=== PATIENT | female | born 1995 | race African-American/Black ===

== ENCOUNTER 2022-07-28 11:39 | Emergency (ER) | payer SELFPAY ==
--- OUTSIDE RECORDS SUMMARY | 2022-07-28 11:47 | XMS REPORT | Continuity of Care Document ---
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 13:00:00 13:55:50 [facility] 2022-04-30 2022-04-30 Letter [facility] [id number] Univers 00:00:00 00:00:00 (Out) [facility] 350.1.13.10 ity of CANCER 4.2.7.2.686 [facility] - [id number] [facility] [address] 2021-08-13 2021-08-13 Outpatient COVID-PFIZE ANAIS CAMPOS [id number] Anais 14:40:00 14:40:00 R Vladimir [facility] [facility] 2021-07-23 2021-07-23 Office Ruddy RAM 1.2.840.114 [id number] Anais 11:15:00 11:30:00 Visit Leeanne ludwig 350.1.13.13 Lisa Yoo 1.2.7.2.686 [id number] 2021-07-10 2021-07-10 Outpatient RUDDY ANAIS CAMPOS 105 [id number] Anais 11:15:00 11:15:00 END, LEEANNE Alcantar ybsantos 2021-06-26 2021-06-[address] ANAIS CAMPOS [id number] Anais 15:10:00 15:10:00 Seybol d 2021-06-26 2021-06-26 Office RUDDY CLEAR 1.2.840.114 [id number] Anais 14:30:00 14:30:00 Visit END, LEEANNE JOLLY 350.1.13.13 Seybold 1.2.7.2.686 [id number] 2021-06-26 2021-06-26 Outpatient RUDDY ANAIS CAMPOS [id number] Anais 00:00:00 00:00:00 END, LEEANNE Alcantar ybsantos 2021-06-26 2021-06-26 [facility] ANAIS C[facility] [id number] Anais 00:00:00 00:00:00 MD SAL Seybol d 2021-06-18 2021-06-18 Office Ruddy CLEAR 1.2.840.114 [id number] Anais 09:00:00 09:15:00 Visit end, Leeanne JOLLY 350.1.13.13 Seybold 1.2.7.2.686 [id number] 2021-05-30 2021-06-04 Inpatient EM RICH RomanCL OBPP [id number] [facility] 03:21:00 10:58:00 Leeanne [id number] [facility] 2021-05-30 2021-06-04 Inpatient RICH GrossCL OBPP [id number] [facility] 03:21:00 10:58:00 Leeanne 81 [facility] 2021-06-04 2021-06-04 Outpatient RUDDY ANAIS CAMPOS 102 [id number] Anais 09:15:00 09:15:00 END, LEEANNE Alcantar ybsantos 2021-06-02 2021-06-02 Outpatient PROVIDER, ANAIS CAMPOS [id number] Anais 00:00:00 00:00:00 AFFILIATE Seyb old 2021-06-02 2021-06-02 Outpatient KENY-SMI ANAIS CAMPOS [id number] Anais 00:00:00 00:00:00 TH, SOLANGE ybol d 2021-05-30 2021-05-30 Outpatient KNOW, HCABM OPLA [id number] [facility] 10:56:00 10:56:00 DOES_NOT 85 [facility] 2021-05-28 2021-05-28 Routine OB [a]list games CLEAR 1.2.840.114 [id number] Anais 11:14:31 11:29:31 end, Leeanne JOLLY 350.1.13.13 Seybold M 1.2.7.2.686 [id number] 2021-05-21 2021-05-21 Routine OB [a]list games CLEAR 1.2.840.114 [id number] Anais 11:08:41 11:23:41 end, Leeanne JOLLY 350.1.13.13 Seybold M 1.2.7.2.686 [id number] 2021-05-14 2021-05-14 Outpatient COVID-MODER ANAIS CAMPOS [id number] Anais 09:50:00 09:50:00 NA VACC-2, Sey bold CLEAR 2021-05-14 2021-05-14 Routine OB [a]list games CLEAR 1.2.840.114 [id number] Anais 08:31:39 08:46:39 end, Leeanne JOLLY 350.1.13.13 Seybold M 1.2.7.2.686 [id number] 2021-05-07 2021-05-07 Outpatient LWP77-ALQ ANAIS CAMPOS [id number] Anais 10:55:00 10:55:00 Seybol d 2021-05-07 2021-05-07 Outpatient COVID-PFIZE ANAIS CAMPOS [id number] Anais 10:30:00 10:30:00 R VACC-2, Seyb old CLEAR 2021-05-07 2021-05-07 Routine OB [a]list games CLEAR 1.2.840.114 [id number] Anais 09:09:11 09:24:11 end, Leeanne JOLLY 350.1.13.13 Seybold M 1.2.7.2.686 [id number] 2021-05-05 2021-05-05 Outpatient COVID-PFIZE ANAIS CAMPOS 103 [id number] Anais 10:30:00 10:30:00 R VACC-1, Seyb old CLEAR 2021-04-23 2021-04-23 Outpatient COVID-PFIZE ANAIS CAMPOS 102 [id number] Anais 10:50:00 10:50:00 R VACC-1, Seyb old CLEAR 2021-04-23 2021-04-23 Outpatient COVID-PFIZE ANAIS CAMPOS 102 [id number] Anais 10:10:00 10:10:00 R VACC-1, Seyb old CLEAR 2021-04-23 2021-04-23 Outpatient LAB53 ANAIS CAMPOS [id number] Anais 09:40:00 09:40:00 Seybol d 2021-04-23 2021-04-23 Routine OB [facility] CLEAR 1.2.840.114 [id number] Anais 08:38:31 08:53:31 end, Leeanne JOLLY 350.1.13.13 Seybold M 1.2.7.2.686 [id number] 2021-04-18 2021-04-18 Emergency EM Christelle, HCACL MARINA [id number] [facility] 18:59:00 20:30:00 [facility] 2021-04-18 2021-04-18 Outpatient [facility] ANAIS CAMPOS 102 [id number] Anais 00:00:00 00:00:00 END, LEEANNE Se ybold 2021-04-09 2021-04-09 Routine OB [facility] CLEAR 1.2.840.114 [id number] Anais 08:29:50 08:44:50 end, Leeanne JOLLY 350.1.13.13 Seybold M 1.2.7.2.686 [id number] 2021-03-26 2021-03-26 Routine OB [facility] CLEAR 1.2.840.114 [id number] Anais 08:46:10 09:01:10 end, Leeanne JOLLY 350.1.13.13 Seybold M 1.2.7.2.686 [id number] 2021-03-12 2021-03-12 Outpatient LAB53 ANAIS CAMPOS [id number] Anais 10:25:00 10:25:00 Seybol d 2021-03-12 2021-03-12 Outpatient [facility] ANAIS ANAIS 101 [id number] Anais 09:00:00 09:00:00 SOLANGE AVILA Seybol d 2021-03-12 2021-03-12 Outpatient [facility] ANAIS ANAIS 100 [id number] Anais 08:45:00 08:45:00 END, LEEANNE Se ybold 2021-03-07 2021-03-07 Outpatient ANAIS BARNESSEY [id number] Anais 07:30:00 07:30:00 Seybol d 2021-03-07 2021-03-07 Outpatient [facility] ANAIS ANAIS [id number] Anais 00:00:00 00:00:00 END, LEEANNE Se ybold 2021-02-27 2021-02-27 Outpatient ELIZABETHANAISONKurtis CAMOPS ANAIS 101 [id number] Anais 00:00:00 00:00:00 MD SAL Seybol d 2021-02-11 2021-02-11 Outpatient [facility] ANAIS ANAIS 100 [id number] Anais 14:45:00 14:45:00 END, LEEANNE Se ybold 2020-03-08 2020-03-08 Outpatient L[facility], [facility] [id number] [place] 00:00:00 00:00:00 SARAH 681 Method i 2020-03-07 2020-03-07 Outpatient [facility], [facility] [id number] [address] [place] 00:00:00 00:00:00 SARAH 704 Method i 2020-03-07 2020-03-07 Outpatient [facility], [facility] [id number] [address] [place] 00:00:00 00:00:00 SARAH 119 Method i 2020-02-25 2020-02-25 Emergency WINGKUN, [facility] [id number] [address] [place] 00:00:00 00:00:00 SAURABH 209 Nj thodi 2019-11-08 2019-11-08 Emergency MARCANTEL, [facility] [id number] [place] 00:00:00 00:00:00 DESMOND [address] 2019-09-27 2019-09-27 Emergency JONATHAN, [facility] [id number] [address] [place] 00:00:00 00:00:00 IMAN [address] Results Test Description Test Time Test Comments Results Result Comments Source PAP TEST, THINPREP, IMAGED 2022-04-29 22:23:11 Test Item Value Reference Range Interpretation Comme nts SOURCE: (test code = Cervical/Endocervical 8001) SLIDES: (test code = 1 8011) LMP: (test code = 04/16/2022 8021) SPECIMEN ADEQUACY: (NOTE) Ivanna graf for (test code = 76849) evaluati on. Endocervical cells/transform ation zone component prese nt. INTERPRETATION: NILM/NO EPITH. ABNORMALITY;SEE (test code = 42983) BELOW -------- NEGATIVE FOR INTRAEPITHE LIAL LESION OR MALIGNANCY ( NILM) -- BAGGAGE CHECKER: GERSON Waters(ASCP)IAC (test code = 8101) LOCATION: (test code (NOTE) Specime ns processed and = 26277) interpreted at [facility] [address] [place] [address], Phone: ( [phone], CLIA: [id number] CPT: (test code = (NOTE) 40792 UNLE SS OTHERWISE 8140) INDICATED, COMP UTER AIDED AND CYTOTECHNOL OGIST SCREENING PERFO RMED. The Pap test is a scree luis daniel test with an inheren t, but low probability of error. Your patient should be reminded to consult you immediately if she experien víctor any suspicious sign s or symptoms, regar dless of her Pap test result . An alternate repor t format containing imag es or consolidated pr ior Pap history is avai lable as applicable. CT/NG, TMA, [id number] 22:19:39 Test Item Value Reference Range Interpretation Comments GONORRHEA, TMA NEGATIVE NEGATIVE Assay method ology is (test code = nucleic acid am plification 15357) by transcriptio n mediated amplification ( TMA) utilizing the A ptima Combo 2 Assay. CHLAMYDIA, TMA NEGATIVE NEGATIVE Assay method ology is (test code = nucleic acid am plification 92339) by transcriptio n mediated amplification ( TMA) utilizing the A ptima Combo 2 Assay. VAGINAL PATHOGENS DNA [id number] 16:26:53 Test Item Value Reference Range Interpretation Comments ROHAN SPECIES (test NEGATIVE NEGATIVE code = ) G. VAGINALIS (test NEGATIVE NEGATIVE code = ) T. VAGINALIS (test NEGATIVE NEGATIVE UNLESS O THERWISE code = ) INDICATED, ALL TESTING PERFORMED [facility] [address] [place] [address] 4 LABORATORY DIRE CTOR: WHIT GANN M.D. CLIA NUMBER [id number] [facility] [place] [id number] HPV HIGH RISK WITH GENOTYPE, [id number] 14:46:15 Test Item Value Reference Range Interpretation Comments HPV HIGH RISK INTERP NEGATIVE NEGATIVE (test code = 07371) HPV 16 (test code = NEGATIVE 39992) HPV 18 (test code = NEGATIVE 17349) HPV, HR, OTHER NEGATIVE Testing meth odology is GENOTYPES (test code real-ti me PCR utilizing = 89182) hydrolysis prob es with the ELVPHD Korin 4800 system. The suhas t individually de tects genotypes 16 an d 18, as well as the oth er 12 high risk types (31,33,35,39,45 ,51,52,56 ,58,59,66,68). The expected result is negative. A neg ative result does not rule out the presence of HPV not included in the genotype set, a low leve l of infection or sp ecimen sampling error. UNLESS OTHERWISE INDIC ATED, ALL TESTING PERFORM [facility] [place]. [address] [place] [address] LABORATORY DIRE CTOR: WHIT GANN M.D. CLIA NUMBER [id number] [facility] [place] [id number] URINALYSIS NONAUTO W/O [id number] 15:29:00 Test Item Value Reference Range Interpretation Comments UD KETONES (test code Neg 5-160 = 956540) UD GLUCOSE (test code Neg 100-2000 = 712413) UD PROTEIN (test code Neg Trace - 2000 mg/dL = 718002) UD LEUKOCYTES (test Neg Trace - Large @ 2 code = 148301) min. UD NITRITE (test code Neg Neg. - Pos. @ 60 = 316290) sec. UD UROBILINOGEN (test 0.2 mg/dL 0.2-8 code = 822222) UD PH (test code = See_Comment [Automat ed message] 370083) The system test companyic h generated this result transmit renate reference range : 5.0 - 8.5 @ 60 sec. . The reference range was not used to interpret this result as normal/abnormal . UD BLOOD (test code = Neg Neg. - Large @ 60 232176) sec. UD SPECIFIC GRAVITY See_Comment [Automa renate message] (test code = 836130) The sys tem which generated this result transmit renate reference range : 1.000 - 1.030 @ 45 sec.. The refer ence range was not u sed to interpret th is result as normal/abnormal . UD BILIRUBIN (test Neg Neg. - Large @ 45 code = 021346) sec. Anais SeyboldURINALYSIS [id number] 15:18:00 Test Item Value Reference Range Interpretation Comments UA COLOR (test code = COLU) COLORLESS YEL/STRAW UA APPEARANCE (test code = CLEAR CLEAR APPU) UA GLUCOSE DIPSTICK (test NEGATIVE NEGATIVE code = DGLUU) UA BILIRUBIN DIPSTICK (test NEGATIVE NEGATIVE code = BILU) UA KETONE DIPSTICK (test NEGATIVE NEGATIVE code = KETU) UA SPECIFIC GRAVITY (test 1.003 1.005-1.030 L code = SGU) UA BLOOD DIPSTICK (test 2+ NEGATIVE A code = FIDEL) UA PH DIPSTICK (test code = 8.0 5.0-7.0 H JAYLON) UA PROTEIN DIPSTICK (test NEGATIVE NEGATIVE code = PROU) UA UROBILINIOGEN DIPSTICK 0.2 mg/dL 0.2-1.0 (test code = URO) UA NITRITE DIPSTICK (test NEGATIVE NEGATIVE code = ELINOR) UA LEUKOCYTE ESTERASE NEGATIVE NEGATIVE DIPSTICK (test code = LEUU) UA RBC (test code = RBCU) NONE SEEN RBC/HPF 0-3 UA WBC NO REFLEX (test code NONE SEEN WBC/HPF 0-3 = WBCUCL) UA BACTERIA (test code = NONE SEEN /HPF NONE SEEN BACU) UA SQUAMOUS CELLS (test 0-5 /HPF NONE SEEN code = SQU) COMPREHENSIVE METABOLIC [id number] 12:59:00 Test Item Value Reference Range Interpretation Comments SODIUM (test code = NA) 137 mEq/L 134-147 N POTASSIUM (test code = 3.6 mEq/L 3.4-5.0 N K) CHLORIDE (test code = 103 mEq/L 100-108 N CL) CARBON DIOXIDE (test 26 mEq/l 21-33 N code = CO2) ANION GAP (test code = 12 0-20 N GAP) GLUCOSE (test code = 99 mg/dL 70-110 N GLU) BLOOD UREA NITROGEN 9 mg/dL 7-18 N (test code = BUN) GLOMERULAR FILTRATION 147.4 110-120 H Units of measure = RATE (test code = GFR) ml/mi n/1.73 m2 CREATININE (test code = 0.6 mg/dL 0.6-1.3 N CREAT) TOTAL PROTEIN (test 7.2 g/dL 6.4-8.2 N code = PROT) ALBUMIN (test code = 3.10 g/dL 3.4-5.0 L ALB) CALCIUM (test code = 10.5 mg/dL 8.0-10.5 N CA) BILIRUBIN TOTAL (test 0.40 mg/dL 0.0-1.0 N code = BILT) SGOT/AST (test code = 22 IUnit/L 15-37 N AST) SGPT/ALT (test code = 18 IUnit/L 30-65 L ALT) ALKALINE PHOSPHATASE 129 IUnit/L 20-125 H TOTAL (test code = ALKP) URIC [id number] 12:59:00 Test Item Value Reference Range Interpretation Comments URIC ACID (test code = URIC) 4.3 mg/dL 2.6-7.2 N LACTIC DEHYDROGENASE(LDH)2021-06-03 12:59:00 Test Item Value Reference Range Interpretation Comments LACTIC DEHYDROGENASE(LDH) (test 195 IUnits/L 84-246 N code = LDH) CBC W/AUTO [id number] 12:24:00 Test Item Value Reference Range Interpretation Comments WHITE BLOOD CELL (test code = 8.0 x10 3/uL 4.5-11.0 N WBC) RED BLOOD CELL (test code = 4.01 x10 6/uL 3.54-5.02 N RBC) HEMOGLOBIN (test code = HGB) 11.2 g/dL 11.0-15.0 N HEMATOCRIT (test code = HCT) 33.7 % 33.0-45.0 N MEAN CELL VOLUME (test code = 84.0 fL 81.0-99.0 N MCV) MEAN CELL HGB (test code = MCH) 27.9 pg 27.0-33.0 N MEAN CELL HGB CONCETRATION 33.2 g/dL 33.0-37.0 N (test code = MCHC) RED CELL DISTRIBUTION WIDTH CV 14.3 % 11.5-14.5 N (test code = RDW) RED CELL DISTRIBUTION WIDTH SD 44.2 fL 37.0-54.0 N (test code = RDW-SD) PLATELET COUNT (test code = 284 x10 3/uL 150-400 N PLT) MEAN PLATELET VOLUME (test code 10.0 fL 7.0-9.0 H = MPV) NEUTROPHIL % (test code = NT%) 71.0 % 56.0-77.0 N IMMATURE GRANULOCYTE % (test 1.0 % 0.0-2.0 N code = IG%) LYMPHOCYTE % (test code = LY%) 17.9 % 14.0-32.0 N MONOCYTE % (test code = MO%) 8.0 % 4.8-9.0 N EOSINOPHIL % (test code = EO%) 1.7 % 0.3-3.7 N BASOPHIL % (test code = BA%) 0.4 % 0.0-2.0 N NUCLEATED RBC % (test code = 0.0 % 0-0 N NRBC%) NEUTROPHIL # (test code = NT#) 5.70 x10 3/uL 2.0-7.6 N IMMATURE GRANULOCYTE # (test 0.08 x10 3/uL 0.00-0.03 H code = IG#) LYMPHOCYTE # (test code = LY#) 1.44 x10 3/uL 1.0-3.8 N MONOCYTE # (test code = MO#) 0.64 x10 3/uL 0.1-0.8 N EOSINOPHIL # (test code = EO#) 0.14 x10 3/uL 0.0-0.2 N BASOPHIL # (test code = BA#) 0.03 x10 3/uL 0.0-0.2 N NUCLEATED RBC # (test code = 0.00 x10 3/uL 0.0-0.1 N NRBC#) MANUAL DIFF REQUIRED (test code NO = MDIFF) COMPREHENSIVE METABOLIC [id number] 08:18:00 Test Item Value Reference Range Interpretation Comments SODIUM (test code = NA) 137 mEq/L 134-147 N POTASSIUM (test code = 3.9 mEq/L 3.4-5.0 N K) CHLORIDE (test code = 106 mEq/L 100-108 N CL) CARBON DIOXIDE (test 24 mEq/l 21-33 N code = CO2) ANION GAP (test code = 11 0-20 N GAP) GLUCOSE (test code = 72 mg/dL 70-110 N GLU) BLOOD UREA NITROGEN < 5 mg/dL 7-18 L (test code = BUN) GLOMERULAR FILTRATION 123.4 110-120 H Units of measure = RATE (test code = GFR) ml/mi n/1.73 m2 CREATININE (test code = 0.7 mg/dL 0.6-1.3 N CREAT) TOTAL PROTEIN (test 5.8 g/dL 6.4-8.2 L code = PROT) ALBUMIN (test code = 2.70 g/dL 3.4-5.0 L ALB) CALCIUM (test code = 8.9 mg/dL 8.0-10.5 N CA) BILIRUBIN TOTAL (test 0.50 mg/dL 0.0-1.0 N code = BILT) SGOT/AST (test code = 31 IUnit/L 15-37 N AST) SGPT/ALT (test code = 17 IUnit/L 30-65 L ALT) ALKALINE PHOSPHATASE 137 IUnit/L 20-125 H TOTAL (test code = ALKP) CBC W/AUTO [id number] 06:45:00 Test Item Value Reference Range Interpretation Comments WHITE BLOOD CELL (test code = 12.0 x10 3/uL 4.5-11.0 H WBC) RED BLOOD CELL (test code = 3.72 x10 6/uL 3.54-5.02 N RBC) HEMOGLOBIN (test code = HGB) 10.3 g/dL 11.0-15.0 L HEMATOCRIT (test code = HCT) 31.8 % 33.0-45.0 L MEAN CELL VOLUME (test code = 85.5 fL 81.0-99.0 N MCV) MEAN CELL HGB (test code = 27.7 pg 27.0-33.0 N MCH) MEAN CELL HGB CONCETRATION 32.4 g/dL 33.0-37.0 L (test code = MCHC) RED CELL DISTRIBUTION WIDTH CV 14.7 % 11.5-14.5 H (test code = RDW) RED CELL DISTRIBUTION WIDTH SD 45.5 fL 37.0-54.0 N (test code = RDW-SD) PLATELET COUNT (test code = 192 x10 3/uL 150-400 N PLT) MEAN PLATELET VOLUME (test 11.5 fL 7.0-9.0 H code = MPV) NEUTROPHIL % (test code = NT%) 84.6 % 56.0-77.0 H IMMATURE GRANULOCYTE % (test 0.4 % 0.0-2.0 N code = IG%) LYMPHOCYTE % (test code = LY%) 6.7 % 14.0-32.0 L MONOCYTE % (test code = MO%) 8.1 % 4.8-9.0 N EOSINOPHIL % (test code = EO%) 0.0 % 0.3-3.7 L BASOPHIL % (test code = BA%) 0.2 % 0.0-2.0 N NUCLEATED RBC % (test code = 0.0 % 0-0 N NRBC%) NEUTROPHIL # (test code = NT#) 10.12 x10 3/uL 2.0-7.6 H IMMATURE GRANULOCYTE # (test 0.05 x10 3/uL 0.00-0.03 H code = IG#) LYMPHOCYTE # (test code = LY#) 0.80 x10 3/uL 1.0-3.8 L MONOCYTE # (test code = MO#) 0.97 x10 3/uL 0.1-0.8 H EOSINOPHIL # (test code = EO#) 0.00 x10 3/uL 0.0-0.2 N BASOPHIL # (test code = BA#) 0.02 x10 3/uL 0.0-0.2 N NUCLEATED RBC # (test code = 0.00 x10 3/uL 0.0-0.1 N NRBC#) MANUAL DIFF REQUIRED (test NO code = MDIFF) CORD ARTERIAL BLOOD [id number] 20:25:00 Test Item Value Reference Range Interpretation Comments CORD BLOOD PH (test code = PH/C) 7.16 7.18-7.38 LL CORD BLOOD PCO2 (test code = 81 mmHg 32-66 H PCO2/C) CORD BLOOD PO2 (test code = PO2/C) 5 mmHg 6-30 L CORD BLOOD HCO3 (test code = 29 mmol/L 17-27 H HCO3/C) BASE EXCESS CORD (test code = 0.6 mmol/L -8.0-0.0 H GIAN/C) CBG TEMPERATURE (test code = 98.4 F TEMPC) CORD VENOUS BLOOD [id number] 19:49:00 Test Item Value Reference Range Interpretation Comments CORD VENOUS PH (test code = PHCV) 7.27 7.25-7.45 N CORD VENOUS PCO2 (test code = 59 mmHg 27-49 H PCO2CV) CORD VENOUS PO2 (test code = 19 mmHg 17-41 N PO2CV) CORD VENOUS HCO3 (test code = 27.0 MMOL/L 12-28 N HCO3CV) CORD VENOUS BASE EXCESS (test 0.0 mmol/L -8.0-0.00 N code = BEXCV) CORD VENOUS 02 SAT (test code = 23 % O2SCV) CBG TEMPERATURE (test code = 98.4 F TEMPC) UR PROTEIN/CREATININE [id number] 13:43:00 Test Item Value Reference Range Interpretation Comments UR PROTEIN RANDOM 40 mg/dL No te: Change in (test code = UNITS of MEASUR EMENT. PROTU) The Refe rence Range and Metho d Performance specificationsh ave not been establishe d for this fluid. The test resultshould be correlated into the clinical contex t forinterpretati on. UR CREATININE 145.7 mg/dL The Reference Range and RANDOM (test code Method Per formance = CREATU) specificationsh ave not been establishe d for this fluid. The test resultshould be correlated into the clinical contex t forinterpretati on. PROTEIN/CREATININ 0.27 E RATIO (test code = P/CRATIO) AB HIV 1 10:54:00 Test Item Value Reference Range Interpretation Comments AB HIV 1 2 (test code = ARN54ZB) Nonreactive Nonreactive RAPID PLASMA [id number] 10:54:00 Test Item Value Reference Range Interpretation Comments RAPID PLASMA REAGIN (test code = NONREACTIVE NONREACTIVE RPR) AG HEPATITIS B [id number] 10:54:00 Test Item Value Reference Range Interpretation Comments AG HEPATITIS B SURFACE NON REACTIVE INDEX NonReactive (test code = HBSAG) COMPREHENSIVE METABOLIC [id number] 04:30:00 Test Item Value Reference Range Interpretation Comments SODIUM (test code = NA) 135 mEq/L 134-147 N POTASSIUM (test code = 3.9 mEq/L 3.4-5.0 N K) CHLORIDE (test code = 104 mEq/L 100-108 N CL) CARBON DIOXIDE (test 23 mEq/l 21-33 N code = CO2) ANION GAP (test code = 12 0-20 N GAP) GLUCOSE (test code = 88 mg/dL 70-110 N GLU) BLOOD UREA NITROGEN < 5 mg/dL 7-18 L (test code = BUN) GLOMERULAR FILTRATION 147.4 110-120 H Units of measure = RATE (test code = GFR) ml/mi n/1.73 m2 CREATININE (test code = 0.6 mg/dL 0.6-1.3 N CREAT) TOTAL PROTEIN (test 7.0 g/dL 6.4-8.2 N code = PROT) ALBUMIN (test code = 3.40 g/dL 3.4-5.0 N ALB) CALCIUM (test code = 9.2 mg/dL 8.0-10.5 N CA) BILIRUBIN TOTAL (test 0.40 mg/dL 0.0-1.0 N code = BILT) SGOT/AST (test code = 21 IUnit/L 15-37 N AST) SGPT/ALT (test code = 11 IUnit/L 30-65 L ALT) ALKALINE PHOSPHATASE 183 IUnit/L 20-125 H TOTAL (test code = ALKP) URIC [id number] 04:30:00 Test Item Value Reference Range Interpretation Comments URIC ACID (test code = URIC) 4.6 mg/dL 2.6-7.2 N LACTIC DEHYDROGENASE(LDH)2021-05-30 04:30:00 Test Item Value Reference Range Interpretation Comments LACTIC DEHYDROGENASE(LDH) (test 161 IUnits/L 84-246 N code = LDH) URINALYSIS [id number] 04:23:00 Test Item Value Reference Range Interpretation Comments UA COLOR (test code = COLU) YELLOW YEL/STRAW UA APPEARANCE (test code = CLEAR CLEAR APPU) UA GLUCOSE DIPSTICK (test code NEGATIVE NEGATIVE = DGLUU) UA BILIRUBIN DIPSTICK (test NEGATIVE NEGATIVE code = BILU) UA KETONE DIPSTICK (test code 1+ NEGATIVE A = KETU) UA SPECIFIC GRAVITY (test code 1.017 1.005-1.030 N = SGU) UA BLOOD DIPSTICK (test code = 1+ NEGATIVE A FIDEL) UA PH DIPSTICK (test code = 6.0 5.0-7.0 N JAYLON) UA PROTEIN DIPSTICK (test code 1+ NEGATIVE A = PROU) UA UROBILINIOGEN DIPSTICK 0.2 mg/dL 0.2-1.0 (test code = URO) UA NITRITE DIPSTICK (test code NEGATIVE NEGATIVE = ELINOR) UA LEUKOCYTE ESTERASE DIPSTICK NEGATIVE NEGATIVE (test code = LEUU) UA RBC (test code = RBCU) 4-10 RBC/HPF 0-3 UA WBC NO REFLEX (test code = 4-9 WBC/HPF 0-3 A WBCUCL) UA BACTERIA (test code = BACU) NONE SEEN /HPF NONE SEEN UA SQUAMOUS CELLS (test code = 0-5 /HPF NONE SEEN SQU) UA MUCUS (test code = MUCU) TRACE /LPF NONE SEEN COVID 19 Asymptomatic IH [id number] 04:18:00 Test Item Value Reference Range Interpretation Comments COVID 19 Asymptomatic Negative Negative A nega tive result is IH AG (test code = presumpti ve and should COVNONPUIAG) be confirmedwit h an FDA authorized mole cular assay, if neces liudmila forpatient thomas gement.A positive result does not rule out co-inf ections withother patho gens.This test detects joanna th viable (live) and non-viable,SARS -CoV, and SARS-CoV-2. Suhas t performance dep ends on theamount of vi ignacia (antigen) in th e sample.This suhas t has not been FDA cleare d or approved; the t est hasbeen authori zed by FDA under an Em ergency Use Authorizati on(EUA) for use by labo ratories certified under the CLIA thatmeet the requirements to perform moderate, high or waivedcomplexit y tests. CBC W/AUTO [id number] 04:03:00 Test Item Value Reference Range Interpretation Comments WHITE BLOOD CELL (test code = 10.5 x10 3/uL 4.5-11.0 WBC) RED BLOOD CELL (test code = 4.11 x10 6/uL 3.54-5.02 N RBC) HEMOGLOBIN (test code = HGB) 11.3 g/dL 11.0-15.0 N HEMATOCRIT (test code = HCT) 35.4 % 33.0-45.0 N MEAN CELL VOLUME (test code = 86.1 fL 81.0-99.0 N MCV) MEAN CELL HGB (test code = MCH) 27.5 pg 27.0-33.0 N MEAN CELL HGB CONCETRATION 31.9 g/dL 33.0-37.0 L (test code = MCHC) RED CELL DISTRIBUTION WIDTH CV 14.6 % 11.5-14.5 H (test code = RDW) RED CELL DISTRIBUTION WIDTH SD 45.8 fL 37.0-54.0 N (test code = RDW-SD) PLATELET COUNT (test code = 197 x10 3/uL 150-400 N PLT) MEAN PLATELET VOLUME (test code 11.2 fL 7.0-9.0 H = MPV) NEUTROPHIL % (test code = NT%) 83.2 % 56.0-77.0 H IMMATURE GRANULOCYTE % (test 0.5 % 0.0-2.0 N code = IG%) LYMPHOCYTE % (test code = LY%) 9.6 % 14.0-32.0 L MONOCYTE % (test code = MO%) 6.4 % 4.8-9.0 N EOSINOPHIL % (test code = EO%) 0.1 % 0.3-3.7 L BASOPHIL % (test code = BA%) 0.2 % 0.0-2.0 N NUCLEATED RBC % (test code = 0.0 % 0-0 N NRBC%) NEUTROPHIL # (test code = NT#) 8.73 x10 3/uL 2.0-7.6 H IMMATURE GRANULOCYTE # (test 0.05 x10 3/uL 0.00-0.03 H code = IG#) LYMPHOCYTE # (test code = LY#) 1.01 x10 3/uL 1.0-3.8 N MONOCYTE # (test code = MO#) 0.67 x10 3/uL 0.1-0.8 N EOSINOPHIL # (test code = EO#) 0.01 x10 3/uL 0.0-0.2 N BASOPHIL # (test code = BA#) 0.02 x10 3/uL 0.0-0.2 N NUCLEATED RBC # (test code = 0.00 x10 3/uL 0.0-0.1 N NRBC#) MANUAL DIFF REQUIRED (test code NO = MDIFF) ALT+AST+BUN+CREAT+URIC A+CB...2021-04-24 08:07:00 Test Item Value Reference Range Interpretation Comments URIC ACID, SERUM 4.2 mg/dL 2.6-6.2 Therapeuti c (test code = 3084-1) target for gout patients: <6.0 BUN (test code = 3 mg/dL 6-20 L 3094-0) CREATININE, SERUM 0.62 mg/dL 0.57-1.00 (test code = 2160-0) EGFR IF NONAFRICN AM 126 mL/min/1.73 >59 (test code = 27788-6) EGFR IF AFRICN AM 145 mL/min/1.73 >59 [facility] (test code = 58050-8) ronaldo wilsony reports eGFR in complia nce with the ronaldo t ?recommendation s of the National Kidney Foundati on. [facility] will ?update reporti ng as new guidelin es are published f rom the NKF-ASN ?Ta sk force. AST (SGOT) (test code See_Comment [Auto mated = 1919-) message] The system which generated this result transmit renate reference range : 0 - 40 IU/L. The reference range was not used to interpret this result as normal/abnormal . ALT (SGPT) (test code See_Comment [Auto mated = 1742-6) message] The system which generated this result transmit renate reference range : 0 - 32 IU/L. The reference range was not used to interpret this result as normal/abnormal . WHITE BLOOD CELL See_Comment [Automated (WBC) COUNT (test message] T he code = 6690-2) system which generated this result transmit renate reference range : 3.4 - 10.8 x10E3/uL. The reference range was not used to interpret this result as normal/abnormal . RED BLOOD CELL (RBC) See_Comment [Autom ated COUNT (test code = message] The 789-8) system which generated this result transmit renate reference range : 3.77 - 5.28 x10E6/uL. The reference range was not used to interpret this result as normal/abnormal . HEMOGLOBIN (test code 11.1 g/dL 11.1-15.9 = 718-7) HEMATOCRIT (test code 32.2 % 34.0-46.6 L = 4544-3) MCV (test code = 82 fL 79-97 787-2) MCH (test code = 28.2 pg 26.6-33.0 785-6) MCHC (test code = 34.5 g/dL 31.5-35.7 786-4) RDW (test code = 12.8 % 11.7-15.4 788-0) PLATELETS (test code See_Comment [Autom ated = 777-3) message] The system which generated this result transmit renate reference range : 150 - 450 x10E3/uL. The reference range was not used to interpret this result as normal/abnormal . NEUTROPHILS (test 69 % Not Estab. code = 770-8) LYMPHS (test code = 21 % Not Estab. 736-9) MONOCYTES (test code 8 % Not Estab. = 5905-5) EOS (test code = 1 % Not Estab. 713-8) BASOS (test code = 0 % Not Estab. 706-2) NEUTROPHILS See_Comment [Automated (ABSOLUTE) (test code messag e] The = 751-8) system which generated this result transmit renate reference range : 1.4 - 7.0 x10E3/uL. The reference range was not used to interpret this result as normal/abnormal . LYMPHS (ABSOLUTE) See_Comment [Automate d (test code = 731-0) message] The system which generated this result transmit renate reference range : 0.7 - 3.1 x10E3/uL. The reference range was not used to interpret this result as normal/abnormal . MONOCYTES(ABSOLUTE) See_Comment [Automa renate (test code = 742-7) message] The system which generated this result transmit renate reference range : 0.1 - 0.9 x10E3/uL. The reference range was not used to interpret this result as normal/abnormal . EOS (ABSOLUTE) (test See_Comment [Autom ated code = 711-2) message] The system which generated this result transmit renate reference range : 0.0 - 0.4 x10E3/uL. The reference range was not used to interpret this result as normal/abnormal . BASO (ABSOLUTE) (test See_Comment [Auto mated code = 704-7) message] The system which generated this result transmit renate reference range : 0.0 - 0.2 x10E3/uL. The reference range was not used to interpret this result as normal/abnormal . IMMATURE GRANULOCYTES 1 % Not Estab. (test code = 64905-8) IMMATURE GRANS (ABS) See_Comment [Autom ated (test code = 87526-6) messag e] The system which generated this result transmit renate reference range : 0.0 - 0.1 x10E3/uL. The reference range was not used to interpret this result as normal/abnormal . MAGNUS (test code = MAGNUS) [facility] results reported in Eastern Time. [facility] Clinical Information:SRC :Blood, venous*Venipunc ture ? [facility] Source of Specimen:Blood, venous*Venipunc Lab Interpretation Abnormal (test code = 29397-2) Anais Gonzalez- FET BIO PH W[place] W/O [id number] 00:00:00 [facility] 1995 Sex: F Name: [facility] 1995 Age/S: 25 / F [address] [place] [address] Blvd Unit #: [id number] Loc: [place] [address] Phys: Corinne Bourgeois MD Acct: [id number] Dis Date: Status: REG ER PHONE #: [phone] Exam Date: 04/18/20211950 FAX #: [phone] Reason: decreased movement [id number] EXAMS: CPT CODE: [id number] US FET BIO PH W[place] W/O NST 60748 PROCEDURE INFORMATION: Exam: US Biophysical Profile Without Non-Stress Test Exam date and time: 04/18/2021 7:33 PM Age: 25 years oldClinical indication: Screening exam; Encounter for screening of mother; Third trimester (=28 weeks 0 days); ; Additional info: Decreased movement at 33w5d TECHNIQUE: Imaging protocol: US biophysical profile without non-stress testing. COMPARISON: US DUP AB/PEL/SC LTD 11/27/2020 10:10 PM FINDINGS: Gestation: Single live intrauterine identified currently in cephalic position with heart tones of 146 bpm. Anterior grade 1 placenta is seen. Amniotic fluid index measures 15.1 cm. Systolic/diastolic ratio measures 3.2. BIOPHYSICAL PROFILE: Breathin/2 Gross body movements: 2/2 tone: 2/2 Qualitative amniotic fluid: 2/2 Biophysical Profile Score: 8/8 IMPRESSION: Biophysical profile score of 8/8. at 2010 Reported and signed by: Elder Solorzano M.D. CC: Corinne Bourgeois MD; Leeanne Roman MD Technologist: Josefina Harrell RDMS(BR)(AB) Trnscb Date/Time: 04/18/2021 (2010) [email or web address] Orig Print D/T: S: 04/18/2021 (2011) Probe: PAGE 1 Signed ReportURINALYSIS [id number] 23:29:00 Test Item Value Reference Range Interpretation Comments UA COLOR (test code = COLU) YELLOW YEL/STRAW UA APPEARANCE (test code = APPU) CLEAR CLEAR UA GLUCOSE DIPSTICK (test code = 1+ NEGATIVE A DGLUU) UA BILIRUBIN DIPSTICK (test code NEGATIVE NEGATIVE = BILU) UA KETONE DIPSTICK (test code = NEGATIVE NEGATIVE KETU) UA SPECIFIC GRAVITY (test code = 1.014 1.005-1.030 N SGU) UA BLOOD DIPSTICK (test code = NEGATIVE NEGATIVE FIDEL) UA PH DIPSTICK (test code = JAYLON) 7.0 5.0-7.0 N UA PROTEIN DIPSTICK (test code = NEGATIVE NEGATIVE PROU) UA UROBILINIOGEN DIPSTICK (test 0.2 mg/dL 0.2-1.0 code = URO) UA NITRITE DIPSTICK (test code = NEGATIVE NEGATIVE ELINOR) UA LEUKOCYTE ESTERASE DIPSTICK NEGATIVE NEGATIVE (test code = LEUU) UA RBC (test code = RBCU) 0-3 RBC/HPF 0-3 UA WBC NO REFLEX (test code = 0-3 WBC/HPF 0-3 WBCUCL) UA BACTERIA (test code = BACU) TRACE /HPF NONE SEEN UA SQUAMOUS CELLS (test code = 0-5 /HPF NONE SEEN SQU) UA MUCUS (test code = MUCU) TRACE /LPF NONE SEEN - US PREG AFTER [id number] 23:06:00 [facility] : 1995 Sex: F Name: RUBIN JOEL [facility] : 1995 Age/S: 25 / F [address] [place] [address] Unit #: [id number] Loc: [place] [address] Phys: Eran Funk [employer]ODUCTION MANAGER Acct: [id number] Dis Date: Status: REG ER PHONE #: [phone] Exam Date: 11/27/20202234 FAX #: [phone] Reason: 13wk ges, vag bleeding EXAMS: CPT CODE: [id number] US PREG AFTER TRI 44922 STUDY: - DUP AB/PEL/SC/LTD, - US PREG AFTER 1ST TRI 11/27/2020 9:47 PM Ordering Physician: Eran Funk NP Patient Name: RUBIN JOEL MR: [id number] : 1995; Age: 25 years y/o Female Clinical Indication: with vaginal bleeding/discharge. Comparison: None FINDINGS: Multiple static images from a limited obstetrical ultrasound including bustamante scale and M-mode imaging are submitted for interpretation. The examination was performed primarily to assess presentation, size, and dates. The structures were not assessed. GENERAL DESCRIPTION Single live intrauterine . Presentation: Breech Placental location: Anterior Placental grade: 0 Placenta previa: No. Amniotic fluid: Normal in appearance. LINCOLN: Qualitatively adequate. Cervix: Mildly limited visualization estimated at 3.4 cm in length with ill-defined hypoechogenicity in the endocervical canal suspicious for fluid. Normal maternal ovaries measuring 2.4 x 1.9 x 2.1cm on the right and 3.1 x 2.3 x 2.5 cm on the left. Blood flow is demonstrated to both ovaries. STRUCTURES Limited evaluation of all structures related to early gestational age without definite abnormality. A heart rate of 157 bpm is documented. BIOMETRIC MEASUREMENTS BPD: 2.60cm or 14 weeks 4 days PAGE 1 Signed Report (CONTINUED) Name: RUBIN JOEL : 1995 Age/S: 25 / F [address] [place] [address] Unit #: [id number] Loc: [place] [address] Phys: Eran Funk [employer] PRODUCTION MANAGER Acct: [id number] Dis Date: Status: REG ER PHONE #: [phone] Exam Date: FAX #: [phone] Reason: 13wk ges, vag bleeding EXAMS: CPT CODE: [id number] US PREG AFTER 1ST TRI 27729 (Continued) Head circumference: 9.78 cm or 14 weeks 4 days Abdominal circumference: 8.32 cm or 14 weeks 5 days Femur length: 1.42 cm or 14 weeks 1 day Estimated composite gestational age: 14weeks 3 days ESTIMATED WEIGHT 98+ -15 g ESTIMATED DATE DELIVERY (US) 04/24/2021 IMPRESSION: Normal single live intrauterine at 14 weeks 3 days. Limited evaluation of all structuresrelated to early gestational age without definite abnormality. Mildly limited visualization of the cervix measuring 3.4 cm in length containing mild ill-defined fluid in the endocervical canal. GENERALOBSERVATIONS REGARDING ULTRASOUND: 1. A normal or negative sonogram report should not delay further investigation of a clinically suspicious or abnormal . 2. position or overlap of parts may prevent complete evaluation of the fetus. 3. Congenital and developmental abnormalities are not always sonographically visualized. 4. Repeat sonograms may be necessary depending on the clinical development during . SL: TPAINTER-H PAGE 2 Signed Report (CONTINUED) Name: RUBIN JOEL [facility] : 1995 Age/S: 25 / F [address] [place] [address] Unit #: [id number] Loc: [place] [address] Phys: Eran Funk NP Acct: [id number] Dis Date: Status: REG ER PHONE #: [phone] Exam Date: 11/27/20202234 FAX #: [phone] Reason: 13wk ges, vag bleeding EXAMS: CPT C ODE: [id number] US PREG AFTER 1ST TRI 91224 (Continued) at 2306 Reported and signed by: Clif Baker M.D. CC: Leeanne Roman MD; Eran Funk NP Technologist: Kyra De La Torre RDMS(AB)(OB) Trnscb Date/Time: 11/27/2020 (2306) [email or web address] Orig Print D/T: S: 11/27/2020 (2309) Probe: PAGE 3 Signed Report- DUP AB/PEL/SC/LTD 2020-11-27 23:06:00 [facility] LE[facility]NA JOLLYName: RUBIN JOEL : 1995 Sex: F Name: RUBIN JOEL [facility] Leanna Jolly : 1995 Age/S: 25 / F [address] [place] [address] Blvd Unit #: [id number] Loc: [place] [address] Phys: Eran Funk NP Acct: [id number] Dis Date: Status: REG ER PHONE #: [phone] Exam Date: 11/27/20202235 FAX #: [phone] Reason: see US PREG 1st TRIMTR EXAMS: CPT CODE: [id number] DUP AB/PEL/SC/LTD 70917 STUDY: - DUP AB/PEL/SC/LTD, - US PREG AFTER 1ST TRI 11/27/2020 9:47 PM Ordering Physician: Eran Funk NP Patient Name: RUBIN JOEL MR: [id number] : 1995; Age: 25 years y/o Female Clinical Indication: with vaginal bleeding/discharge. Comparison: None FINDINGS: Multiple static images from a limited obstetrical ultrasound including bustamante scale and M-mode imaging are submitted for interpretation. The examination was performed primarily to assess presentation, size, and dates. The structures were not assessed. GENERAL DESCRIPTION Single live intrauterine . Presentation: Breech Placental location: Anterior Placental grade: 0 Placenta previa: No. Amniotic fluid: Normal in appearance. LINCOLN: Qualitatively adequate. Cervix: Mildly limited visualization estimated at 3.4 cm in length with ill-defined hypoechogenicity in the endocervical canal suspicious for fluid. Normal maternal ovaries measuring 2.4 x 1.9 x 2.1 cm on the right and 3.1 x 2.3 x 2.5 cm on the left. Blood flow is demonstrated to both ovaries. STRUCTURES Limited evaluation of all structures related to early gestational age without definiteabnormality. A heart rate of 157 bpm is documented. BIOMETRIC MEASUREMENTS BPD: 2.60 cm or 14 weeks 4 days PAGE 1 Signed Report (CONTINUED) Name: RUBIN JOEL [facility] Leanna Jolly : 1995 Age/S: / [address] [place] [address] Unit #: [id number] Loc: [place] [address] Phys: Eran Funk [employer]B PRODUCTION MANAGER Acct: [id number] Dis Date: Status: REG ER PHONE #: [phone] Exam Date: 11/27/20202235 FAX #: [phone] Reason: see US PREG 1st TRIMTR EXAMS: CPT CODE: [id number] DUP AB/PEL/SC/LTD 43771 (Continued) Head circumference: 9.78 cm or 14 weeks 4 days Abdominal circumference: 8.32 cm or 14 weeks 5 days Femur length: 1.42 cm or 14 weeks 1 day Estimated composite gestational age: 14 weeks 3 days ESTIMATED WEIGHT 98+ -15 g ESTIMATED DATE DELIVERY (US) 04/24/2021 IMPRESSION: Normal single live intrauterine at 14 weeks 3 days. Limited evaluation of all structures relatedto early gestational age without definite abnormality. Mildly limited visualization of the cervix measuring 3.4 cm in length containing mild ill-defined fluid in the endocervical canal. GENERAL OBSERVATIONS REGARDING ULTRASOUND: 1. A normal or negative sonogram report should not delay further investigation of a clinically suspicious or abnormal . 2. position or overlap of fe akshat parts may prevent complete evaluation of the fetus. 3. Congenital and developmental abnormalities are not always sonographically visualized. 4. Repeat sonograms may be necessary depending on the clinical development during . SL: TPAINTER-H PAGE 2 Signed Report (CONTINUED) Name: [facility] : 1995 Age/S: 25 / [address] [place] [address] Unit #: [id number] Loc: [place] [address] Phys: Eran Funk WEB PRODUCTION MANAGER Acct: [id number] Dis Date: Status: REG ER PHONE #: [phone] Exam Date: 11/27/20202235 FAX #: [phone] Reason: see US PREG 1st TRIMTR EXAMS: CPT CODE:[id number] DUP AB/PEL/SC/LTD 83229 (Continued) at 2306 Reported and signed by: Clif Baker M.D. CC: Leeanne Roman MD; Louie VAUGHAN Technologist: Kyra De La Torre RDMS(AB)(OB) Trnscb Date/Time: 11/27/2020 (2305) [email or web address] OrigPrint D/T: S: 11/27/2020 (2308) Probe: PAGE 3 Signed Report- DUP AB/PEL/SC/[id number] 00:24:00 [facility] : 1995 Sex: F Name: RUBIN JOEL [facility] : 1995 Age/S: 25 / F [address] [place] [address] Bl Unit #: [id number] Loc: [place] [address] Phys: Eran Funk NP Acct: [id number] Dis Date: Status: REG ER PHONE #: [phone] Exam Date: 10/14/2020 0005 FAX #: [phone] Reason: see US PREG 1st TRIMTR EXAMS: CPT CODE: [id number] DUP AB/PEL/SC/LTD 41655 STUDY: - US PREG 1ST TRIMTR, - DUP AB/PEL/SC/LTD 10/14/2020 11:13 PM Ordering Physician: Eran Funk NP Patient Name: RUBIN JOEL MR: [id number] : 1995; Age: 25 years y/o Female Clinical Indication: . , R pelvic pain Comparison:None TRANSABDOMINAL PELVIC ULTRASOUND: Technique: Grayscale, color, and Doppler transabdominal imaging of the pelvis was performed with standard technique. UTERUS: Mildly prominent uterus measuring 9.5x 5.4 x 6.3 cm without focal myometrial lesion. A well-formed intrauterine gestational sac is present containing a pole measuring 1.8 cm are 8 weeks 1 day with heart rate of 153 bpm. A small crescentic subchorionic hemorrhage is present inferiorly to the gestational sac measuring 1.8 cm maximum dimension. RIGHT OVARY AND ADNEXA: General: Normal size right ovary measuring 3.1 x 1.6 x 2.16 containing scattered subcentimeter follicles. Doppler: Normal low resistance arterial and venous blood flow is demonstrated. LEFT OVARY AND ADNEXA: General: Mildly limited visualization of the normal size left ovary measuring 3.1 x 2.4 x 2.3 cm containing scattered subcentimeter follicles. Doppler: Normal low resistance arterial and venous blood flow is demonstrated. URINARY BLADDER: Normal for degree of distention present containing anechoic urine. FLUID: None. OTHER FINDINGS: None. IMPRESSION: PAGE 1 Signed Report (CONTINUED) Name: RUBIN JOEL [facility] : 1995 Age/S: 25 / F [address] [place] [address] Unit #: [id number] Loc: [place] [address] Phys: Eran Funk NP Acct: [id number] Dis Date: Status: REG ER PHONE #: [phone] Exam Date: 10/14/2020 0005 FAX #: [phone] Reason: see US PREG 1st TRIMTR EXAMS: CPT CODE: [id number] DUP AB/PEL/SC/LTD 41238 (Continued) Single live intrauterine at 8 weeks 1 day associated with small subchorionic hemorrhage. SL: TPAINTER-H at 0024 Reported and signed by: Clif Baker M.D. CC: Leeanne Roman MD; Eran Funk NP Technologist: Kyra De La Torre RDMS(AB)(OB) Trnscb Date/Time: 10/15/2020 (0024) [email or web address] Orig Print D/T: S: 10/15/2020 (0027) Probe: PAGE 2 Signed Report- US PREG 1ST [id number] 00:24:00 [facility] : 1995 Sex: F Name: RUBIN JOEL [facility] : 1995 Age/S: 25 / F [address] [place] [address] Blvd Unit #: [id number] Loc: [place] [address] Phys: Eran Funk NP Acct: [id number] Dis Date: Status: REG ER PHONE #: [phone] Exam Date: 10/14/2020 0005 FAX #: [phone] Reason: , R pelvic pain EXAMS:CPT CODE: [id number] US PREG 1ST TRIMTR 14032 STUDY: - US PREG 1ST TRIMTR, - DUP AB/PEL/SC/LTD 10/14/2020 11:13 PM Ordering Physician: Eran Funk NP Patient Name: RUBIN JOEL MR: [id number] : 1995; Age: 25 years y/o Female Clinical Indication: . , R pelvic pain Comparison: None TRANSABDOMINAL PELVIC ULTRASOUND: Technique: Grayscale, color, and Doppler transabdominal imagingof the pelvis was performed with standard technique. UTERUS: Mildly prominent uterus measuring 9.5 x5.4 x 6.3 cm without focal myometrial lesion. A well-formed intrauterine gestational sac is present c ontaining a pole measuring 1.8 cm are 8 weeks 1 day with heart rate of 153 bpm. A small crescentic subchorionic hemorrhage is present inferiorly to the gestational sac measuring 1.8 cm maximum dimension. RIGHT OVARY AND ADNEXA: General: Normal size right ovary measuring 3.1 x 1.6 x 2.16 containing scattered subcentimeter follicles. Doppler: Normal low resistance arterial and venous blood flow is demonstrated. LEFT OVARY AND ADNEXA: General: Mildly limited visualization of the normal sizeleft ovary measuring 3.1 x 2.4 x 2.3 cm containing scattered subcentimeter follicles. Doppler: Normal low resistance arterial and venous blood flow is demonstrated. URINARY BLADDER: Normal for degree of distention present containing anechoic urine. FLUID: None. OTHER FINDINGS: None. IMPRESSION: PAGE 1Signed Report (CONTINUED) Name: RUBIN JOEL [facility] : 1995 Age/S: 25 / F [address] [place] [address] Blvd Unit #: [id number] Loc: [place] [address] Phys: Eran Funk NP Acct: [id number] Dis Date: Status: REG ER PHONE #: [phone] Exam Date: 10/14/2020 0005 FAX #: [phone] Reason: , R pelvic pain EXAMS: CPT CODE: [id number] US PREG 1ST TRIMTR 98337 (Continued) Single liveintrauterine at 8 weeks 1 day associated with small subchorionic hemorrhage. SL: TPAINTER-H at 0024 Reported and signed by: Clif Baker M.D. CC: Leeanne Roman MD; Eran Funk NP Technologist: Kyra De La Torre RDMS(AB)(OB) Trnscb Date/Time: 10/15/2020 (23) [email or web address] Orig Print D/T: S: 10/15/2020 (26) Probe: PAGE2 Signed Report- US ABDOMEN [id number] 00:11:00 [facility] LE[facility]NA JOLLYName: RUBIN JOEL : 1995 Sex: F Name: RUBIN JOEL [facility] Leanna Jolly : 1995 Age/S: 25 / F [address] [place] [address] Unit #: [id number] Loc: [place] [address] Phys: Eran Funk NP Acct: [id number] Dis Date: Status: REG ER PHONE #: [phone] Exam Date: 10/14/2020 0005 FAX #: [phone] Reason: RLQ pain EXAMS: CPT CODE: [id number] US ABDOMEN LTD 81805 Study: - US ABDOMEN LTD 10/14/2020 11:13 PM Patient Name: RUBIN JOEL MR: [id number] : 1995; Age: 25 years y/o Female Ordering Physician: Eran Funk NP Clinical Indication: . Right lower abdominal quadrant pain. Comparison: None TECHNIQUE: Multiple static images from right lower abdominal quadrant ultrasound are submitted for dictation. FINDINGS: APPENDIX: The appendix is not demonstrated with certainty. LYMPH NODES: No lymphadenopathy or mass. FREE FLUID: No significant free fluid demonstrated. OTHER: Under distended thick-walled urinary bladder. Incompletely visualized uterus and intrauterine gestational sac. IMPRESSION: Nonvisualized appendix preventing exclusion of acute appendicitis. More sensitive evaluation may be obtained with MR if clinically indicated given status. SL: TPAINTER-H at 0011 Reported and signed by: Clif Baker M.D. PAGE 1 Signed Report (CONTINUED) Name: RUBIN JOEL [facility] [place] : 1995 Age/S: 25 / F [address] [place] [address] Unit #: [id number] Loc: [place] [address] Phys: Eran Funk NP Acct: [id number] Dis Date: Status: REG ER PHONE #: [phone] Exam Date: 10/14/2020 0005 FAX #: [phone] Reason: RLQ painEXAMS: CPT CODE: [id number] US ABDOMEN LTD 28899 (Continued) CC: Leeanne Roman MD; Eran Funk NP Technologist: Kyra De La Torre RDMS(AB)(OB) Trnscb Date/Time: 10/15/2020 (10) [email or web address] Orig Print D/T:S: 10/15/2020 (0014) Probe: PAGE 2 Signed ReportBASIC METABOLIC [id number] 00:08:00 Test Item Value Reference Range Interpretation Comments SODIUM (test code = NA) 137 mEq/L 134-147 N POTASSIUM (test code = 3.7 mEq/L 3.4-5.0 N K) CHLORIDE (test code = 102 mEq/L 100-108 N CL) CARBON DIOXIDE (test 27 mEq/l 21-33 N code = CO2) ANION GAP (test code = 12 0-20 N GAP) GLUCOSE (test code = 96 mg/dL 70-110 N GLU) BLOOD UREA NITROGEN < 5 mg/dL 7-18 L (test code = BUN) GLOMERULAR FILTRATION 123.4 110-120 H Units of measure = RATE (test code = GFR) ml/mi n/1.73 m2 CREATININE (test code = 0.7 mg/dL 0.6-1.3 N CREAT) CALCIUM (test code = 9.6 mg/dL 8.0-10.5 N CA) HEPATIC FUNCTION [id number] 00:08:00 Test Item Value Reference Range Interpretation Comments TOTAL PROTEIN (test code = PROT) 7.5 g/dL 6.4-8.2 N ALBUMIN (test code = ALB) 4.60 g/dL 3.4-5.0 N BILIRUBIN TOTAL (test code = BILT) 0.40 mg/dL 0.0-1.0 N BILIRUBIN DIRECT (test code = 0.10 MG/DL 0.0-0.30 N BILD) BILIRUBIN INDIRECT (test code = 0.30 MG/DL BILIND) SGOT/AST (test code = AST) 13 IUnit/L 15-37 L SGPT/ALT (test code = ALT) 7 IUnit/L 30-65 L ALKALINE PHOSPHATASE TOTAL (test 36 IUnit/L 20-125 N code = ALKP) [id number] 00:08:00 Test Item Value Reference Range Interpretation Comments LIPASE (test code = LIP) 35 U/L 13-57 N HCG [id number] 00:08:00 Test Item Value Reference Range Interpretation Comments HCG SERUM (test 880248.7 0 - 6 NOT P REGNANT > 6 code = HCG) SUGGESTIVE OF E ANABEL RISE S TWO FOLD EVERY 2 DAYS; S UGGEST RECONFIRMING AF TER 2 DAYS. 150,000-200,[address] TRIMESTER 10,00 0 - 50,000 2ND & 3RD TRIME STERResults in yes[place]-Regulatory Auditor ational Units/mL UA RFLX MICR CULT IF [id number] 23:49:00 Test Item Value Reference Range Interpretation Comments UA COLOR (test code = COLU) YELLOW YEL/STRAW UA APPEARANCE (test code = CLOUDY CLEAR A APPU) UA GLUCOSE DIPSTICK (test NEGATIVE NEGATIVE code = DGLUU) UA BILIRUBIN DIPSTICK (test NEGATIVE NEGATIVE code = BILU) UA KETONE DIPSTICK (test NEGATIVE NEGATIVE code = KETU) UA SPECIFIC GRAVITY (test 1.013 1.005-1.030 N code = SGU) UA BLOOD DIPSTICK (test NEGATIVE NEGATIVE code = FIDEL) UA PH DIPSTICK (test code = 8.0 5.0-7.0 H JAYLON) UA PROTEIN DIPSTICK (test NEGATIVE NEGATIVE code = PROU) UA UROBILINIOGEN DIPSTICK 0.2 mg/dL 0.2-1.0 (test code = URO) UA NITRITE DIPSTICK (test NEGATIVE NEGATIVE code = ELINOR) UA LEUKOCYTE ESTERASE NEGATIVE NEGATIVE DIPSTICK (test code = LEUU) UA WBC (test code = WBCU) NONE SEEN WBC/HPF 0-3 UA RBC (test code = RBCU) 0-3 RBC/HPF 0-3 UA WBC NO REFLEX (test code NONE SEEN WBC/HPF 0-3 = WBCUCL) UA BACTERIA (test code = 4+ /HPF NONE SEEN A BACU) UA SQUAMOUS CELLS (test 0-5 /HPF NONE SEEN code = SQU) UA MUCUS (test code = MUCU) TRACE /LPF NONE SEEN Indication for culture: Suprapubic PainSpecimen Description: CLEAN CATCHCBC W/AUTO [id number] 23:39:00 Test Item Value Reference Range Interpretation Comments WHITE BLOOD CELL (test code = 7.1 x10 3/uL 4.5-11.0 N WBC) RED BLOOD CELL (test code = 5.01 x10 6/uL 3.54-5.02 N RBC) HEMOGLOBIN (test code = HGB) 14.0 g/dL 11.0-15.0 N HEMATOCRIT (test code = HCT) 42.8 % 33.0-45.0 N MEAN CELL VOLUME (test code = 85.4 fL 81.0-99.0 N MCV) MEAN CELL HGB (test code = MCH) 27.9 pg 27.0-33.0 N MEAN CELL HGB CONCETRATION 32.7 g/dL 33.0-37.0 L (test code = MCHC) RED CELL DISTRIBUTION WIDTH CV 12.9 % 11.5-14.5 N (test code = RDW) RED CELL DISTRIBUTION WIDTH SD 39.8 fL 37.0-54.0 N (test code = RDW-SD) PLATELET COUNT (test code = 264 x10 3/uL 150-400 N PLT) MEAN PLATELET VOLUME (test code 9.5 fL 7.0-9.0 H = MPV) NEUTROPHIL % (test code = NT%) 73.7 % 56.0-77.0 N IMMATURE GRANULOCYTE % (test 0.3 % 0.0-2.0 N code = IG%) LYMPHOCYTE % (test code = LY%) 20.5 % 14.0-32.0 N MONOCYTE % (test code = MO%) 4.5 % 4.8-9.0 L EOSINOPHIL % (test code = EO%) 0.7 % 0.3-3.7 N BASOPHIL % (test code = BA%) 0.3 % 0.0-2.0 N NUCLEATED RBC % (test code = 0.0 % 0-0 N NRBC%) NEUTROPHIL # (test code = NT#) 5.25 x10 3/uL 2.0-7.6 N IMMATURE GRANULOCYTE # (test 0.02 x10 3/uL 0.00-0.03 N code = IG#) LYMPHOCYTE # (test code = LY#) 1.46 x10 3/uL 1.0-3.8 N MONOCYTE # (test code = MO#) 0.32 x10 3/uL 0.1-0.8 N EOSINOPHIL # (test code = EO#) 0.05 x10 3/uL 0.0-0.2 N BASOPHIL # (test code = BA#) 0.02 x10 3/uL 0.0-0.2 N NUCLEATED RBC # (test code = 0.00 x10 3/uL 0.0-0.1 N NRBC#) MANUAL DIFF REQUIRED (test code NO = MDIFF) SARS-CoV-2 (COVID-19) RNA [Presence] in Respiratory specimen by HECTOR with probe [id number] 03:11:53 Test Item Value Reference Range Interpretation Comments SARS-CoV-2 (COVID-19) RNA Not detected Not-Detected [Presence] in Respiratory specimen by HECTOR with probe detection (test code = 71184-7) [facility]EL[facility] [id number] 23:50:00 Name: RUBIN JOEL [facility] : 1995 Age/S: 23 / F [address] [place] [address] Blvd Unit #:[id number] Loc: [place] [address] Phys: Jeff Hansen MD Acct: [id number] Dis Date: Status: REG ERPHONE #: [phone] Exam Date: 09/16/2018 2328 FAX #: [phone] Reason: diffuse abd pain w vomiting EXAMS: CPT CODE: [id number] CT ABD PELVIS W/CONT [id number] EXAM: CT, CT abdomen pelvis with contrast:09/16/2018 HISTORY: diffuse abd pain w vomiting COMPARISON: None available. TECHNIQUE: Helical imagingwas performed from diaphragm through the symphysis with coronal and sagittal reconstructions. CT imaging was performed with exposure control parameters to reduce radiation dose. IV CONTRAST: 100 cc Isovue. GI CONTRAST: YES CT Radiation Dose: DLP = 147.35 mGy-cm FINDINGS: LOWER CHEST: The visualized lung bases are clear. LIVER: Unremarkable. GALLBLADDER: Unremarkable. INTRAHEPATIC BILE DUCT AND EXTRAHEPATIC BILE DUCT: Unremarkable. PANCREAS: Unremarkable. SPLEEN: Unremarkable. ADRENALS: Unremarkable. KIDNEYS AND URETERS: Unremarkable. STOMACH: Unremarkable. BOWEL: Mildly prominent small bowel with mild surrounding mesenteric stranding may represent mild enteritis. There is no bowel obstruction. Moderate fecal material in the colon APPENDIX: A small phlebolith seen in the appendix. No periappendiceal inflammation or fluid collection seen.. PERITONEUM AND RETROPERITONEUM: No ascites or free air. There is no aortic aneurysm or dissection. LYMPH NODES: Unremarkable. PELVIS: No pelvic mass or adenopathy. Uterus is anteverted and unremarkable. There is a 2.0 x 1.8 x 1.9 cm cyst in the left ovary. BLADDER: Unremarkable. OSSEOUS STRUCTURES: No acute abnormality seen. PAGE 1 Signed Report (CONTINUED)Name: RUBIN JOEL [facility] : 1995 Age/S: 23 / F [address] [place] [address] Unit #:[id number] Loc: [place] [address] Phys: Jeff Hansen MD Acct: [id number] Dis Date: Status: REG ER PHONE #: [phone] Exam Date: 09/16/2018 2328 FAX #: [phone] Reason: diffuse abd pain w vomiting EXAMS: CPT CODE: [id number] CT ABD PELVIS W/CONT [id number] (Continued) SOFT TISSUES: Unremarkable.IMPRESSION: 1. Mildly prominent small bowel loops and mild mesenteric stranding may represent enteritis. No bowel obstruction seen. 2. Small appendicolith without evidence for acute appendicitis. 3. Left ovarian cyst.. SL: JSYED-H at 2350 Reported and signed by: Bobby Dolan M.D. CC: Jeff Hansen MD Technologist:Vernon Maxwell, RT(R)(CT)CTDI: DLP: Trnscb Date/Time: 09/16/2018 (049) [email or web address] Orig Print D/T: S: 09/16/2018 (6814) CTDI: DLP: PAGE 2 Signed ReportCOMPREHENSIVE METABOLIC [id number] 22:14:00 Test Item Value Reference Range Interpretation Comments SODIUM (test code = NA) 137 mEq/L 134-147 N POTASSIUM (test code = 3.8 mEq/L 3.4-5.0 N K) CHLORIDE (test code = 102 mEq/L 100-108 N CL) CARBON DIOXIDE (test 29 mEq/L 21-33 N code = CO2) ANION GAP (test code = 10 0-20 N GAP) GLUCOSE (test code = 84 mg/dL 70-110 N GLU) BLOOD UREA NITROGEN 10 mg/dL 7-18 N (test code = BUN) GLOMERULAR FILTRATION 93.9 110-120 L Units of measure = RATE (test code = GFR) ml/mi n/1.73 m2 CREATININE (test code = 0.9 mg/dL 0.6-1.3 N CREAT) TOTAL PROTEIN (test 9.2 g/dL 6.4-8.2 H code = PROT) ALBUMIN (test code = 5.00 g/dL 3.4-5.0 N ALB) CALCIUM (test code = 9.5 mg/dL 8.0-10.5 N CA) BILIRUBIN TOTAL (test 0.30 mg/dL 0.0-1.0 N code = BILT) SGOT/AST (test code = 13 IUnit/L 15-37 L AST) SGPT/ALT (test code = 17 IUnit/L 15-65 N ALT) ALKALINE PHOSPHATASE 40 IUnit/L 20-125 N TOTAL (test code = ALKP) [id number] 22:14:00 Test Item Value Reference Range Interpretation Comments LIPASE (test code = LIP) 97 IUnit/L 73-393 N HCG SERUM [id number] 22:14:00 Test Item Value Reference Range Interpretation Comments HCG SERUM QUAL (test code = SERUM NEGATIVE NEGATIVE HCGQL) COMPREHENSIVE METABOLIC [id number] 22:12:00 Test Item Value Reference Range Interpretation Comments SODIUM (test code = NA) 137 mEq/L 134-147 N POTASSIUM (test code = 3.8 mEq/L 3.4-5.0 N K) CHLORIDE (test code = 102 mEq/L 100-108 N CL) CARBON DIOXIDE (test 29 mEq/L 21-33 N code = CO2) ANION GAP (test code = 10 0-20 N GAP) GLUCOSE (test code = 84 mg/dL 70-110 N GLU) BLOOD UREA NITROGEN 10 mg/dL 7-18 N (test code = BUN) GLOMERULAR FILTRATION 93.9 110-120 L Units of measure = RATE (test code = GFR) ml/mi n/1.73 m2 CREATININE (test code = 0.9 mg/dL 0.6-1.3 N CREAT) TOTAL PROTEIN (test g/dL 6.4-8.2 code = PROT) ALBUMIN (test code = 5.00 g/dL 3.4-5.0 N ALB) CALCIUM (test code = 9.5 mg/dL 8.0-10.5 N CA) BILIRUBIN TOTAL (test mg/dL 0.0-1.0 code = BILT) SGOT/AST (test code = 13 IUnit/L 15-37 L AST) SGPT/ALT (test code = 17 IUnit/L 15-65 N ALT) ALKALINE PHOSPHATASE IUnit/L 20-125 TOTAL (test code = ALKP) [id number] 22:12:00 Test Item Value Reference Range Interpretation Comments LIPASE (test code = LIP) 97 IUnit/L 73-393 N HCG SERUM [id number] 22:12:00 Test Item Value Reference Range Interpretation Comments HCG SERUM QUAL (test code = SERUM NEGATIVE NEGATIVE HCGQL) COMPREHENSIVE METABOLIC [id number] 22:09:00 Test Item Value Reference Range Interpretation Comments SODIUM (test code = NA) mEq/L 134-147 POTASSIUM (test code = K) mEq/L 3.4-5.0 CHLORIDE (test code = CL) mEq/L 100-108 CARBON DIOXIDE (test code = CO2) mEq/L 21-33 ANION GAP (test code = GAP) 0-20 GLUCOSE (test code = GLU) mg/dL 70-110 BLOOD UREA NITROGEN (test code = mg/dL 7-18 BUN) GLOMERULAR FILTRATION RATE (test 110-120 code = GFR) CREATININE (test code = CREAT) mg/dL 0.6-1.3 TOTAL PROTEIN (test code = PROT) g/dL 6.4-8.2 ALBUMIN (test code = ALB) g/dL 3.4-5.0 CALCIUM (test code = CA) mg/dL 8.0-10.5 BILIRUBIN TOTAL (test code = BILT) mg/dL 0.0-1.0 SGOT/AST (test code = AST) IUnit/L 15-37 SGPT/ALT (test code = ALT) IUnit/L 15-65 ALKALINE PHOSPHATASE TOTAL (test IUnit/L 20-125 code = ALKP) [id number] 22:09:00 Test Item Value Reference Range Interpretation Comments LIPASE (test code = LIP) IUnit/L 73-393 HCG SERUM [id number] 22:09:00 Test Item Value Reference Range Interpretation Comments HCG SERUM QUAL (test code = SERUM NEGATIVE NEGATIVE HCGQL) URINALYSIS [id number] 22:01:00 Test Item Value Reference Range Interpretation Comments UA COLOR (test code = COLU) YELLOW YEL/STRAW UA APPEARANCE (test code = APPU) CLOUDY CLEAR A UA GLUCOSE DIPSTICK (test code = NEGATIVE NEGATIVE DGLUU) UA BILIRUBIN DIPSTICK (test code NEGATIVE NEGATIVE = BILU) UA KETONE DIPSTICK (test code = NEGATIVE NEGATIVE KETU) UA SPECIFIC GRAVITY (test code = 1.017 1.005-1.030 N SGU) UA BLOOD DIPSTICK (test code = NEGATIVE NEGATIVE FIDEL) UA PH DIPSTICK (test code = JAYLON) 9.0 5.0-7.0 H UA PROTEIN DIPSTICK (test code = NEGATIVE NEGATIVE PROU) UA UROBILINIOGEN DIPSTICK (test 0.2 mg/dL 0.2-1.0 code = URO) UA NITRITE DIPSTICK (test code = NEGATIVE NEGATIVE ELINOR) UA LEUKOCYTE ESTERASE DIPSTICK NEGATIVE NEGATIVE (test code = LEUU) UA WBC (test code = WBCU) 0-3 WBC/HPF 0-3 UA RBC (test code = RBCU) 4-10 RBC/HPF 0-3 UA BACTERIA (test code = BACU) TRACE /HPF NONE SEEN UA SQUAMOUS CELLS (test code = 0-5 /HPF NONE SEEN SQU) COMMENTS: Clean CatchCBC W/AUTO [id number] 21:59:00 Test Item Value Reference Range Interpretation Comments WHITE BLOOD CELL (test code = 7.25 x10 3/uL 4.5-11.0 N WBC) RED BLOOD CELL (test code = 5.15 x10 6/uL 3.54-5.02 H RBC) HEMOGLOBIN (test code = HGB) 14.3 g/dL 11.0-15.0 N HEMATOCRIT (test code = HCT) 45.2 % 33.0-45.0 H MEAN CELL VOLUME (test code = 87.8 fL 81.0-99.0 N MCV) MEAN CELL HGB (test code = MCH) 27.8 pg 27.0-33.0 N MEAN CELL HGB CONCETRATION 31.6 g/dL 33.0-37.0 L (test code = MCHC) RED CELL DISTRIBUTION WIDTH CV 12.8 % 11.5-14.5 N (test code = RDW) RED CELL DISTRIBUTION WIDTH SD 41.5 fL 37.0-54.0 N (test code = RDW-SD) PLATELET COUNT (test code = 255 x10 3/uL 150-400 N PLT) MEAN PLATELET VOLUME (test code 10.3 fL 7.0-9.0 H = MPV) NEUTROPHIL % (test code = NT%) 72.6 % 56.0-77.0 N IMMATURE GRANULOCYTE % (test 0.4 % 0.0-2.0 N code = IG%) LYMPHOCYTE % (test code = LY%) 20.4 % 14.0-32.0 N MONOCYTE % (test code = MO%) 5.0 % 4.8-9.0 N EOSINOPHIL % (test code = EO%) 1.0 % 0.3-3.7 N BASOPHIL % (test code = BA%) 0.6 % 0.0-2.0 N NUCLEATED RBC % (test code = 0.0 % 0-0 N NRBC%) NEUTROPHIL # (test code = NT#) 5.27 x10 3/uL 2.0-7.6 N IMMATURE GRANULOCYTE # (test 0.03 x10 3/uL 0.00-0.03 N code = IG#) LYMPHOCYTE # (test code = LY#) 1.48 x10 3/uL 1.0-3.8 N MONOCYTE # (test code = MO#) 0.36 x10 3/uL 0.1-0.8 N EOSINOPHIL # (test code = EO#) 0.07 x10 3/uL 0.0-0.2 N BASOPHIL # (test code = BA#) 0.04 x10 3/uL 0.0-0.2 N NUCLEATED RBC # (test code = 0.00 x10 3/uL 0.0-0.1 N NRBC#) MANUAL DIFF REQUIRED (test code NO = MDIFF)
[2022-07-28 12:47] LABS: Urine Blood Negative (Negative); Urine Glucose Negative (Negative); Urine Protein Negative (Negative)
[2022-07-28] MEDS ORDERED: KETOROLAC 30 MG/ML INJ ONE (12:51)
[2022-07-28] MEDS ORDERED: ONDANSETRON 4 MG/2 ML VIAL ONE (12:51)
[2022-07-28] MEDS ORDERED: NA CHLORIDE 0.9% 1,000 ML ONE (12:52)
[2022-07-28 13:01] LABS: Absolute Lymphocytes (CBC) 1.3 K/uL (0.7-4.9); Hematocrit 38.4 % (36.0-45.0); Lymphocytes % 23.2 % (15.3-44.8); MCV 83.4 fL (80-100); MPV 8.7 fL (7.6-11.3); RBC Red Blood Cell Count 4.61 M/uL (3.86-4.86)
[2022-07-28 13:23] LABS: Albumin 3.9 g/dL (3.4-5.0); Bilirubin Total 0.2 mg/dL (0.2-1.0); Potassium 4.1 mmol/L (3.5-5.1); Protein, Total 7.3 g/dL (6.4-8.2)
[2022-07-28 13:36] LABS: SARS-COV-2 RT PCR NEGATIVE (NEGATIVE)
--- NOTE | 2022-07-28 13:54 | RAD REPORT ---
EXAM DESCRIPTION: CT - Abdomen Pelvis W Contrast - 07/28/2022 1:32 pm CLINICAL HISTORY: suprapubic pain, flank pain COMPARISON: No comparisons TECHNIQUE: Biphasic, helical CT imaging of the abdomen and pelvis was performed following 100 ml non -ionic IV contrast. Oral contrast: No. All CT scans are performed using dose optimization technique as appropriate and may include automated exposure control or mA/KV adjustment according to patient size. FINDINGS: No suspicious findings in the lung bases. The liver, spleen, and pancreas show no suspicious findings. Gallbladder and biliary tree are also wi thout suspicious finding. Symmetric renal function is seen with no hydronephrosis or suspicious renal mass. A 7 millimeter nono bstructing calyx calcification is present in the mid right kidney. Renal parenchymal enhancement [facility] is within normal range. No pyelonephritis can be confirmed. No suspicious renal parenchymal mass. No perinephric stranding is present. No ureteral enhancement. Cuellar of the urinary bladder are sligh tly thickened and shaggy. However, the bladder is mostly contracted and the wall thickening may be ar tifact. Cystitis cannot be excluded. No bladder wall mass or stone. No adrenal abnormalities. No dilated bowel loops or bowel wall thickening. Appendix is normal. No acute GI process identifiable . Uterus and left ovary show no suspicious findings. Right ovary contains a 3.9 centimeter cyst. No cys t rupture or hemorrhage findings. No free air, free fluid or inflammatory stranding. No hernia findings. There is no abdominal wall mass or hematoma. No suspicious bony findings. IMPRESSION: Contrast enhanced CT abdomen and pelvis showing no acute or emergent finding. A 4 centimeter right ovarian cyst is present without rupture or hemorrhage findings. Cuellar of the urinary bladder are accentuated by the contracted state. Cystitis cannot be excluded. No current findings of pyelonephritis.
--- NOTE | 2022-07-28 14:03 | ER ---
Nurse's Notes [facility] Name: Jessie Joel Age: 26 yrs Sex: Female : 1995 Arrival Date: 07/28/2022 Time: 11:42 Bed 18 Private MD: Diagnosis: Acute pharyngitis, unspecified;Vomiting;Other ovarian cysts Presentation: 07/28 11:53 Chief complaint: Patient states: B groijn pain, sore throat, N/V started last night ll1 2100. Urine orange/brown today. No known fever. Coronavirus screen: Vaccine status: Patient reports receiving the 2nd dose of the covid vaccine. Client denies travel out of the [place] in the last 14 days. At this time, the client does not indicate any symptoms associated with coronavirus-19. Ebola Screen: Patient denies travel to an Ebola-affected area in the 21 days before illness onset. Initial Sepsis Screen: Does the patient meet any 2 criteria? No. Patient's initial sepsis screen is negative. Does the patient have a suspected source of infection? No. Patient's initial sepsis screen is negative. Risk Assessment: Do you want to hurt yourself or someone else? Patient reports no desire to harm self or others. Onset of symptoms was July 27, 2022. 11:53 Method Of Arrival: Ambulatory ll1 11:53 Acuity: ADOLFO 3 ll1 Triage Assessment: 13:02 General: Appears in no apparent distress. Behavior is calm, cooperative. 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 - Social history:: Smoking status: Patient denies any tobacco usage or history of. Screenin:02 [facility] ED Fall Risk Assessment (Adult) History of falling in the last 3 months, ap3 including since admission No falls in past 3 months (0 pts). Abuse screen: Denies threats or abuse. Nutritional screening: No deficits noted. Tuberculosis screening: No symptoms or risk factors identified. Assessment: 13:01 Reassessment: Patient and/or family updated on plan of care and expected duration. Pain ap3 level reassessed. Patient is alert, oriented x 3, equal unlabored respirations, skin warm/dry/pink. Pain: Complains of pain in left lower quadrant Pain currently is 7 out of 10 on a pain scale. Quality of pain is described as crampy. Neuro: Level of Consciousness is awake, alert, obeys commands, Oriented to person, place, time. Cardiovascular: Patient's skin is warm and dry. Respiratory: Airway is patent Respiratory effort is even, unlabored, Breath sounds are clear bilaterally. GI: Reports nausea. : Reports discolored urine. EENT: Throat is pink. Vital Signs: 11:53 BP 157 / 107; Pulse 99; Resp 17; Temp 97.2; Pulse Ox 100% ; Weight 72.57 kg; Height 5 ll1 ft. 3 in. (160.02 cm); Pain 8/10; 13:02 BP 146 / 86; Pulse 89; Pulse Ox 100% on R/A; ap3 11:53 Body Mass Index 28.34 (72.57 kg, 160.02 cm) ll1 ED Course: 11:42 Patient arrived in ED. rg4 11:49 Vernon Rodriguez, BRICK WHEELER is PHCP. pm1 11:49 Lashonda Copeland MD is Attending Physician. pm1 11:55 Triage completed. ll1 11:55 Arm band placed on Patient placed in an exam room, on a stretcher. ll1 12:05 Isabelle Robles, RN is Primary Nurse. ap3 12:52 CBC with Diff Sent. bc6 12:52 CMP Sent. bc6 12:52 COVID-19/FLU A+B/RSV Sent. bc6 12:52 Strep Sent. bc6 12:52 [place] Screen Profile Sent. bc6 12:52 Lipase Sent. bc6 12:53 Initial lab(s) drawn, by ne, sent to lab. COVID swab sent to lab. Strep swab sent to 6 lab. Inserted saline lock: 20 gauge in left forearm, using aseptic technique. 13:34 CT Abd/Pelvis - IV Contrast Only In Process Unspecified. EDMS 14:10 Patient has correct armband on for positive identification. Bed in low position. Call ap3 light in reach. Side rails up X 1. Pulse ox on. NIBP on. Door closed. Noise minimized. 14:10 No provider procedures requiring assistance completed. ap3 14:17 IV discontinued, intact, bleeding controlled, No redness/swelling at site. Pressure ap3 dressing applied. Administered Medications: 13:00 Drug: NS 0.9% 1000 ml Route: IV; Rate: 1 bolus; Site: left antecubital; ap3 14:10 Follow up: IV Status: Completed infusion ap3 13:00 Drug: Zofran (Ondansetron) 4 mg Route: IVP; Site: left antecubital; ap3 14:10 Follow up: Response: No adverse reaction; Nausea is decreased ap3 13:00 Drug: Ketorolac 30 mg Route: IVP; Site: left antecubital; ap3 14:10 Follow up: Response: No adverse reaction; Pain is decreased ap3 Medication: 14:10 VIS not applicable for this client. ap3 Outcome: 14:02 Discharge ordered by . pm1 14:17 Discharged to home ambulatory. ap3 14:17 Condition: good 14:17 Discharge instructions given to patient, Instructed on discharge instructions, follow up and referral plans. medication usage, Demonstrated understanding of instructions, follow-up care, medications, Prescriptions given X 2. 14:19 Patient left the ED. ap3 Signatures: Dispatcher [employer] EDMS Vernon Rodriguez NP BRICK WHEELER pm1 Krystle Winslow rg4 Isabelle Robles RN RN ap3 Elva Foote RN RN ll1 Nani Mancera bc6
--- NOTE | 2022-07-28 14:03 | EDPHYS ---
Physician Documentation [facility] Name: Jessie Joel Age: 26 yrs Sex: Female : 1995 Arrival Date: 07/28/2022 Time: 11:42 Bed 18 Private MD: ED Physician Lashonda Copeland HPI: 07/28 12:10 This 26 yrs old Black Female presents to ER via Ambulatory with complaints of Abdominal pm1 Pain, Sore Throat, Vomiting/Diarrhea. 12:10 The patient presents with abdominal pain Suprapubic area. Onset: The symptoms/episode pm1 began/occurred last night. The symptoms do not radiate. Associated signs and symptoms: Pertinent positives: bilateral flank pain, sore throat. Vomit x 2. Soft stool x 3. Negative for diarrhea, Pertinent negatives: chest pain, dysuria, fever, shortness of breath. The symptoms are described as achy. Modifying factors: The symptoms are alleviated by nothing, the symptoms are aggravated by nothing. Severity of pain: in the emergency department the pain is unchanged. The patient has experienced a previous episode, approximately 1 years ago, Patient reports pain similar to post op from and with ovarian cysts. The patient has not recently seen a physician. Patient with 1 year old child that has double ear infection treated with antibiotics yesterday by PCP. No swabs preformed at that visit. 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 - Social history:: Smoking status: Patient denies any tobacco usage or history of. ROS: 12:10 Constitutional: Negative for fever, chills, and weight loss. pm1 12:10 Cardiovascular: Negative for chest pain, palpitations, and edema, Respiratory: Negative for shortness of breath, cough, wheezing, and pleuritic chest pain. 12:10 : Negative for injury, bleeding, discharge, and swelling, MS/Extremity: Negative for injury and deformity, Skin: Negative for injury, rash, and discoloration, Neuro: Negative for headache, weakness, numbness, tingling, and seizure. 12:10 ENT: Positive for sore throat, Negative for ear pain. 12:10 Abdomen/GI: Positive for abdominal pain, nausea and vomiting, of the suprapubic area, Negative for diarrhea, constipation. 12:10 Back: Positive for flank pain, bilaterally. 12:10 All other systems are negative. Exam: 12:10 Constitutional: This is a well developed, well nourished patient who is awake, alert, pm1 and in no acute distress. Head/Face: Normocephalic, atraumatic. 12:10 Skin: Warm, dry with normal turgor. Normal color with no rashes, no lesions, and no evidence of cellulitis. MS/ Extremity: Pulses equal, no cyanosis. Neurovascular intact. Full, normal range of motion. 12:10 Eyes: Exam is negative for acute changes, Periorbital structures: no acute changes, Extraocular movements: no acute changes, Conjunctiva: no acute changes, no injection. 12:10 ENT: Exam is negative for acute changes, Mouth: no acute changes, Lips: normal, moist, Oral mucosa: normal, pink and intact, moist. 12:10 Cardiovascular: Exam negative for acute changes, Rate: normal, Rhythm: regular, Pulses: no pulse deficits are appreciated. 12:10 Respiratory: Exam negative for acute changes, respiratory distress, shortness of breath. 12:10 Abdomen/GI: Inspection: abdomen appears normal, Palpation: soft, in all quadrants, mild abdominal tenderness, in the suprapubic area. 12:10 Back: pain, that is mild, of the left low back and right low back. 12:10 Neuro: Exam negative for acute changes, Orientation: is normal, Mentation: is normal, Motor: is normal, moves all fours. Vital Signs: 11:53 BP 157 / 107; Pulse 99; Resp 17; Temp 97.2; Pulse Ox 100% ; Weight 72.57 kg; Height 5 ll1 ft. 3 in. (160.02 cm); Pain 8/10; 13:02 BP 146 / 86; Pulse 89; Pulse Ox 100% on R/A; ap3 11:53 Body Mass Index 28.34 (72.57 kg, 160.02 cm) ll1 MDM: 11:56 Patient medically screened. pm1 13:57 Differential diagnosis: appendicitis, gastritis, non-specific abd pain, Pyelonephritis, pm1 urinary tract infection, strep pharyngitis, viral pharyngitis, flu, covid. 13:57 Data reviewed: vital signs. pm1 13:57 I considered the following discharge prescriptions or medication management in the pm1 emergency department Antibiotics: At this time antibiotics are not recommended, urine is negative for any acute findings. CT with contracted bladder. Negative for pyleonephritis. 13:57 Test considered but Not performed: Ultrasound , Patient is not . Counseling: I pm1 had a detailed discussion with the patient and/or guardian regarding: the historical points, exam findings, and any diagnostic results supporting the discharge/admit diagnosis, lab results, radiology results, the need for outpatient follow up, an OB/Gyne specialist, to return to the emergency department if symptoms worsen or persist or if there are any questions or concerns that arise at home. 07/28 12:09 Order name: CBC with Diff; Complete Time: 13:22 pm1 07/28 12:09 Order name: CMP; Complete Time: 13:34 pm1 07/28 12:09 Order name: Lipase; Complete Time: 13:34 pm1 07/28 12:09 Order name: COVID-19/FLU A+B/RSV; Complete Time: 13:48 pm1 07/28 12:09 Order name: Strep; Complete Time: 13:22 pm1 07/28 12:09 Order name: [place] Screen Profile; Complete Time: 13:48 pm1 07/28 12:09 Order name: IV Saline Lock; Complete Time: 12:52 pm1 07/28 12:09 Order name: CT Abd/Pelvis - IV Contrast Only; Complete Time: 13:54 pm1 07/28 12:47 Order name: Urine Dipstick-Ancillary; Complete Time: 12:48 [facility] 07/28 12:49 Order name: Urine --Ancillary (enter results); Complete Time: 13:17 bd 07/28 13:19 Order name: Throat Culture [facility] 07/28 12:09 Order name: Labs collected and sent; Complete Time: 12:52 pm1 07/28 12:09 Order name: Urine Dipstick-Ancillary (obtain specimen); Complete Time: 13:01 pm1 07/28 12:09 Order name: Urine Test (obtain specimen); Complete Time: 13:01 pm1 Administered Medications: 13:00 Drug: NS 0.9% 1000 ml Route: IV; Rate: 1 bolus; Site: left antecubital; ap3 14:10 Follow up: IV Status: Completed infusion ap3 13:00 Drug: Zofran (Ondansetron) 4 mg Route: IVP; Site: left antecubital; ap3 14:10 Follow up: Response: No adverse reaction; Nausea is decreased ap3 13:00 Drug: Ketorolac 30 mg Route: IVP; Site: left antecubital; ap3 14:10 Follow up: Response: No adverse reaction; Pain is decreased ap3 Disposition Summary: 07/28/22 14:02 Discharge Ordered Location: Home pm1 Problem: new pm1 Symptoms: have improved pm1 Condition: Stable pm1 Diagnosis - Acute pharyngitis, unspecified pm1 - Vomiting pm1 - Other ovarian cysts pm1 Followup: pm1 - With: Emergency Department - When: As needed - Reason: Worsening of condition Followup: pm1 - With: Private Physician - When: 2 - 3 days - Reason: Recheck today's complaints, Continuance of care, Re-evaluation by your physician Discharge Instructions: - Discharge Summary Sheet pm1 - Ovarian Cyst pm1 - Pharyngitis pm1 - Vomiting, Adult pm1 Forms: - Medication Reconciliation Form pm1 - Thank You Letter pm1 - Antibiotic Education pm1 - Prescription Opioid Use pm1 - School release form ap3 Prescriptions: - ondansetron 4 mg Oral - take 4 milligrams by SUBLINGUAL route every 8 hours; 15 tablet; Refills: 0, pm1 Product Selection Permitted - Diclofenac Sodium 75 mg Oral tablet,delayed release (DR/EC) - take 1 tablet by ORAL route 2 times per day As needed; 30 tablet; Refills: 0, pm1 Product Selection Permitted Signatures: Dispatcher [employer] Vernon Husain NP CALL CENTER NURSE pm1 Isabelle Robles RN RN ap3 Elva Foote RN RN ll1
[2022-07-28 14:38] VITALS: TEMP 97.2; O2SAT 100
[2022-07-28 14:43] VITALS: BP 146/86
== END 2022-07-28 14:19 | disposition home or self-care (01) ==
LOC: ER 11:39
DX: J02.9 Acute pharyngitis, unspecified (principal); R11.10 Vomiting, unspecified; N83.299 Other ovarian cyst, unspecified side; Z20.822 Contact with and (suspected) exposure to COVID-19
CPT/HCPCS: 0241U; 36415; 74177; 80053; 81003; 81025; 83690; 85025; 86308; 87070; 87081; 96361; 96374; 96375; 99284; J2405; J7030; Q9967

== ENCOUNTER 2023-01-12 09:21 | Emergency (ER) | payer OTHER ==
--- OUTSIDE RECORDS SUMMARY | 2023-01-12 09:30 | XMS REPORT | Continuity of Care Document ---
:1995 Author Organization [facility] t Address [address] [place] [address] Care Team Providers Name Role Phone Asked, No Pcp Primary Care Physician Unavailable Leeanne Roman Attending Clinician Unavailable Corinne Bourgeois Attending Clinician Unavailable ANAY GARCIA Attending Clinician Unavailable RASHAD MCINTOSH Attending Clinician Unavailable Anay Osuna Attending Clinician Lab, Lcc Attending Clinician Unavailable COVID-PFIZER BOOSTER, CLEAR JOLLY Attending Clinician Unavail able Leeanne Cross MD Attending Clinician [phone] LEEANNE CROSS Attending Clinician Unavailable [id number] Attending Clinician Unavailable MD ERON Attending Clinician Unavailable PROVIDER, AFFILIATE Attending Clinician Unavailable NATA HERRERA Attending Clinician Unavailable KNOW, DOES_NOT Attending Clinician [...] No Primary or Family Admitting Clinician Unavaila robyn KNOW, DOES_NOT Admitting Clinician Unavailable MD SARAH LOTT Admitting Clinician Unavailable Payers Payer Name Policy Type Policy Number Effective Date Expiration Date David AZUL 2 [id number] 2019 00:00:00 Problems Condition Condition Condition Status Onset Resolution Last Treating Co mments Source Name Details Category Date Date Treatment Clinician Date Dark urine Dark urine Disease Active 2021-07 U nivers 0-13 ity of 00:00: [place] [facility] Chronic Chronic Disease Active 2021-07 Univers bilateral bilateral 0-13 ity of low back low back 00:00: [place] pain pain 00 Medical without without Branch sciatica sciatica Abnormal Abnormal Disease Active 2021-07 Unive rs urinalysis urinalysis 0-13 it y of 00:00: Medical Branch Enlarged Enlarged Disease Active [place] di lymph node lymph node 03-07 st 00:00: Hospita 00 l Glaucoma Glaucoma Disease Active Overview: Ke lsey 3-26 Formattin Seybold 00:00: g of this 00 note might be different from the original. Diagnosed in 8th grade, has not followed up since then BMI BMI Disease Active Univers 28.0-28.9, 28.0-28.9, 01-20 it y of adult adult 00:00: [place] 00 Medical Branch Encounter Encounter Disease Active [...] y of d asthma d asthma 00:00: [place] severity, severity, 00 Medi kun uncomplica uncomplica Br anch renate renate Tobacco Tobacco Disease Active Univers use use 01-20 ity of disorder disorder 00:00: [address] Screening Screening Disease Active Uni vers for for 01-20 ity of rubella rubella 00:00: [address] Allergies, Adverse Reactions, Alerts Allergy Allergy Status Severity Reaction(s) Onset Inactive Treating Comm ents Source Name Type Date Date Clinician No Known DA Active U 2020-07 [facility] All[facility]ie 0-01 Clear s 00:00: [place] 00 [facility] No Known DA Active U 2020-07 [facility] Allergie 0-01 [place] 00:00: [address] No Known DA Active U 0 [facility] Allergie 3-03 Clear s 00:00: [place] 00 [facility] No Known DA Active U 2019-0 [facility] Allergie 3-03 Clear s 00:00: [place] 00 [facility] No Known DA Active U 0 [facility] Allergie 3-01 Clear s 00:00: [place] 00 [facility] No Known DA Active U 2018-0 [facility] Allergie 3-01 Clear s 00:00: [place] 00 [facility] No Known DA Active U [facility] Allergie 2-02 Clear s 00:00: [place] 00 [facility] NO KNOWN Drug Active Univers ALLERGIE Class ity of S [facility] Social History Social Habit Start Date Stop Date Quantity Comments Source ASSERTION 2020-09-08 Anais Gonzalez 00:00:00 Exposure to Not sure Anais walker SARS-CoV-2 (event) History of tobacco Anais Alcantarybold use History SDMI [facility] History SDOH [facility] Tobacco use and 2020-10-16 2020-10-16 Smokeless tobacco Lucho Valdesold exposure 00:00:00 00:00:00 non-user History SDOH Social 2020-10-16 2020-10-16 5 Carmen Gonzalez Connections Phone 00:00:00 00:00:00 History SDOH Social 2020-10-16 2020-10-16 5 Carmen Gonzalez Connections Get 00:00:00 00:00:00 Together History SDOH Social 2020-10-16 2020-10-16 1 Kelse y Seybold Connections Mandaeism 00:00:00 00:00:00 History SDOH Social 2020-10-16 2020-10-16 [...] Anais Valdeso ld Physical Activity 00:00:00 00:00:00 MPS History SDOH [...] 00:00:00 History SDOH 2020-10-16 2020-10-16 2 Anais longoria Transport Med 00:00:00 00:00:00 History SDOH 2020-10-16 2020-10-16 2 Anais Sezuleima longoria Transport Non-Med 00:00:00 00:00:00 History SDOH 2020-10-16 2020-10-16 2 Anais zuleima longoria Housing Unable to 00:00:00 00:00:00 Pay History SDOH 2020-10-16 2020-10-16 2 Anais zuleima longoria Housing Places 00:00:00 00:00:00 Lived History SDOH 2020-10-16 2020-10-16 2 Anais Sezuleima longoria Housing Homeless 00:00:00 00:00:00 Last Year Education 2020-10-16 2020-10-16 21 Anais Gonzalez 00:00:00 00:00:00 Alcohol intake 2020-03-07 2020-03-07 Lifetime Hindu 00:00:00 00:00:00 non-drinker Hospital (finding) History of Social 2020-03-07 2020-03-[address] function 00:00:00 00:00:00 Hospital History SDOH 2020-03-07 2020-03-07 1 Hindu Alcohol Frequency 00:00:00 00:00:00 Hospita l Alcohol Comment 2017-10-11 2017-10-11 Social Drinker Palse calixto Lisa 00:00:00 00:00:00 Tobacco Comment 2016-01-21 2016-01-21 smokes about 2 Unive rsity of 00:00:00 00:00:00 cigarettes per [place] [facility] kun week for the past Branch 2months Sex Assigned At [birth year] [facility] 00:00:00 00:00:00 Hospital Smoking Status Start Date Stop Date Source Ex-smoker 2020-10-16 00:00:00 2020-10-16 Anais longoria 00:00:00 Never smoked tobacco [facility] Occasional tobacco 2016-01-21 00:00:00 [facility] smoker Medical Branch Medications Ordered Filled Start Stop Current Ordering Indication Dosage Frequency Signature Comments Components Source Medication Medication Date Date Medication? Clinician (SIG) Name Name No known 2021-07 No No known Unive rs medications 0-13 medication it y of 13:28: s [place] 32 [facility] No known 2021-07 No No known Unive rs medications 0-13 medication it y of 13:28: [address] No known 2021-07 No No known Unive rs medications 0-13 medication it y of 13:28: [address] No known 2021-07 No No known Unive rs medications 0-13 medication it y of 13:28: [address] No known 2021-07 No No known Unive rs medications 0-13 medication it y of 13:28: [address] Etonogestre Yes 1{each} Inject 1 Anais l 1-05 each into Seybold (Nexplanon) 11:25: the skin 68 MG 34 once subcutaneou Inserted s Implant 07/10/21 expires 07/10/26 Acetaminoph Yes 500mg Q6H Take 500 K elsey en 1-05 mg by Seybold (TYLENOL) 11:08: mouth 500 MG oral 37 every 6 Tablet hours as needed for pain MV 2021- No Take by Lucho jackson & Min 1-05 01-05 mouth Seybold w/FA-DHA 11:08: 00:00 ([facility] :00 GUMMY OR) Acetaminoph 2020-07 Yes 500mg Q6H Take 500 K elsey en 2-09 mg by Seybold (TYLENOL) 14:43: mouth 500 MG oral 55 every 6 Tablet hours as needed for pain MV 2020-07 Yes Take by Pal zapata & Min 2-09 mouth Seybold w/FA-DHA 14:43: ([facility] 55 GUMMY OR) Amoxicillin 2020-07 Yes [id number] 1{tbl} Take 1 Anais -Pot 2-09 tablet by Seybold Clavulanate 00:00: mouth 2 (Augmentin) 00 times 875-125 MG daily oral Tablet Amoxicillin 2020-07- No [id number] 1{tbl} Take 1 Anais -Pot 2-09 01-05 [...] Tablet NIFEdipine 2020-07 Yes Take by [place] espinal CR Osmotic 1-15 mouth Seybold 30 MG oral 00:00: daily TABLET SR 00 24 HR HYDROcodone 2020-07 Yes Take by Pal zapata -Acetaminop 1-15 mouth 4 Seybo ld hen (NORCO) 00:00: times 5-325 MG 00 daily oral Tablet NIFEdipine 2020-07 Yes Take by [place] espinal CR Osmotic 1-15 mouth Seybold 30 MG [...] w/FA-DHA 12:02: ([facility] OR) Acetaminoph 2021-1 Yes 500mg Q6H Take 500 K elsey en 0-27 mg by Seybold (TYLENOL) 08:50: mouth 500 MG oral 51 every 6 Tablet hours as needed for pain MV 2020-07 Yes Take by Pal zapata & Min 0-27 mouth Seybold w/FA-DHA 08:50: ([facility] [...] Yes Take by Pal zapata & Min 0-06 mouth Seybold w/FA-DHA 08:48: ([facility] 08 GUMMY OR) HYDROcodone 2020-07 Yes [id number] 1{tbl} Q6H Take 1 Anais -Acetaminop 0-06 tablet by Vladimir burt (NORCO) 00:00: mouth 5-325 MG 00 every 6 oral Tablet hours as needed for pain HYDROcodone 2020-07- No [id number] 1{tbl} Q6H Take 1 Anais -Acetaminop 0-06 [...] MV Yes Take by Pal zapata & Min 9-22 mouth Seybold w/FA-DHA 08:40: ([facility] OR) Acetaminoph 2020-0 Yes 500mg Q6H Take 500 K elsey en 9-08 mg by Seybold (TYLENOL) 08:56: mouth 500 MG oral 27 every 6 Tablet hours as needed for pain MV Yes Take by Pal sey & Min 9-08 mouth Seybold w/FA-DHA 08:56: ([facility] OR) Valacyclovi Yes [id number] 500mg TAKE 1 Anais r HCl 500 6-28 TABLET Seybold MG oral 00:00: (500 MG Tablet 00 TOTAL) BY MOUTH 2 TIMES DAILY Valacyclovi Yes [id number] 500mg TAKE 1 Anais r HCl 500 6-28 TABLET Seybold MG oral 00:00: (500 MG Tablet 00 TOTAL) BY MOUTH 2 TIMES DAILY Valacyclovi Yes [id number] 500mg TAKE 1 Anais r HCl 500 6-28 TABLET Seybold MG oral 00:00: (500 MG Tablet 00 TOTAL) BY MOUTH 2 TIMES DAILY Valacyclovi Yes [id number] 500mg TAKE 1 Anais r HCl 500 6-28 TABLET Seybold MG oral 00:00: (500 MG Tablet 00 TOTAL) BY MOUTH 2 TIMES DAILY Valacyclovi Yes [id number] 500mg TAKE 1 Anais r HCl 500 6-28 TABLET Seybold MG oral 00:00: (500 MG Tablet 00 TOTAL) BY MOUTH 2 TIMES DAILY Valacyclovi Yes [id number] 500mg TAKE 1 Anais r HCl 500 6-28 TABLET Seybold MG oral 00:00: (500 MG Tablet 00 TOTAL) BY MOUTH 2 TIMES DAILY Valacyclovi Yes [id number] 500mg TAKE 1 Anais r HCl 500 6-28 TABLET Seybold MG oral 00:00: (500 MG Tablet 00 TOTAL) BY MOUTH 2 TIMES DAILY Valacyclovi Yes [id number] 500mg TAKE 1 Anais r HCl 500 6-28 TABLET Seybold MG oral 00:00: (500 MG Tablet 00 TOTAL) BY MOUTH 2 TIMES DAILY Valacyclovi Yes [id number] 500mg TAKE 1 Anais r HCl 500 6-28 TABLET Seybold MG oral 00:00: (500 MG Tablet 00 TOTAL) BY MOUTH 2 TIMES DAILY Valacyclovi Yes [id number] 500mg TAKE 1 Anais r HCl 500 6-28 TABLET Seybold MG oral 00:00: (500 MG Tablet 00 TOTAL) BY MOUTH 2 TIMES DAILY benzonatate 2020-0 Yes 200mg Q.[id number] Take 1 [facility] (TESSALON) 3-[id number] 200 MG 00:00: 3D (200 mg Hospita capsule 00 total) by l mouth 3 (three) times a day as needed for cough. benzonatate 2020-0 Yes 200mg Q.[id number] Take 1 [facility] (TESSALON) 3-[id number] 200 MG 00:00: 3D (200 mg Hospita capsule 00 total) by l mouth 3 (three) times a day as needed for cough. meloxicam 2019-0 Yes 15mg Q24H Take 1 Method i (MOBIC) 15 2-13 tablet (15 st mg tablet 00:00: mg total) Hos gorge 00 by mouth l daily as needed for mild pain for up to 10 doses. meloxicam 2019-0 Yes 15mg Q24H Take 1 Method i (MOBIC) 15 2-13 tablet (15 st mg tablet 00:00: mg total) Hos gorge 00 by mouth l daily as needed for mild pain for up to 10 doses. Immunizations Ordered Filled Immunization Date Status Comments [facility] Immunization Name Name Covid-19 Vaccine 2021-05-07 Completed Anais peck ([facility]), Mrna-lnp, 00:00:00 Ryan Protein, Pf, 30mcg/0.3ml,IM Covid-19 Vaccine 2021-05-07 Completed Anais peck ([facility]), Mrna-lnp, 00:00:00 Ryan Protein, Pf, 30mcg/0.3ml,IM Covid-19 Vaccine 2021-05-07 Completed Anais peck ([facility]), Mrna-lnp, 00:00:00 Ryan Protein, Pf, 30mcg/0.3ml,IM Covid-19 Vaccine 2021-05-07 Completed Anais peck ([facility]), Mrna-lnp, 00:00:00 Ryan Protein, Pf, 30mcg/0.3ml,IM Covid-19 Vaccine 2021-05-07 Completed Anais peck ([facility]), Mrna-lnp, 00:00:00 Ryan Protein, Pf, 30mcg/0.3ml,IM Covid-19 Vaccine 2021-05-07 Completed Anais S eybold ([facility]), Mrna-lnp, 00:00:00 Ryan Protein, Pf, 30mcg/0.3ml,IM Covid-19 Vaccine 2021-04-23 Completed Anais S eybold ([facility]), Mrna-lnp, 00:00:00 Ryan Protein, Pf, 30mcg/0.3ml,IM Covid-19 Vaccine 2021-04-23 Completed Anais Hernandez eybold ([facility]), Mrna-lnp, 00:00:00 Ryan Protein, Pf, 30mcg/0.3ml,IM Covid-19 Vaccine 2021-04-23 Completed Anais Hernandez eybold ([facility]), Mrna-lnp, 00:00:00 Ryan Protein, Pf, 30mcg/0.3ml,IM Covid-19 Vaccine 2021-04-23 Completed Anais Hernandez eybold ([facility]), Mrna-lnp, 00:00:00 Ryan Protein, Pf, 30mcg/0.3ml,IM Covid-19 Vaccine 2021-04-23 Completed Anais S eybold ([facility]), Mrna-lnp, 00:00:00 Ryan Protein, Pf, 30mcg/0.3ml,IM Covid-19 Vaccine 2021-04-23 Completed Anais S eybold ([facility]), Mrna-lnp, 00:00:00 Ryan Protein, Pf, 30mcg/0.3ml,IM Covid-19 Vaccine 2021-04-23 Completed Anais Hernandez eybold ([facility]), Mrna-lnp, 00:00:00 Ryan Protein, Pf, 30mcg/0.3ml,IM Covid-19 Vaccine 2021-04-23 Completed Anais S eybold ([facility]), Mrna-lnp, 00:00:00 Ryan Protein, Pf, 30mcg/0.3ml,IM Tdap- (Boostrix, 2021-04-09 Completed Anais espinalbovon Adacel) 00:00:00 Tdap- (Boostrix, 2021-04-09 Completed Anais Hernandez eybovon Adacel) 00:00:00 Tdap- (Boostrix, 2021-04-09 Completed Anais [...] 2021-04-09 Completed Anais S eybold Adacel) 00:00:00 Influenza Virus 2017-04-22 Completed [...] 00:00:00 months and up TDAP 2013-01-20 Completed University of 00:00:00 [facility] TDAP 2013-01-20 Completed University of 00:00:00 [facility] TDAP 2013-01-20 Completed University of 00:00:00 [facility] TDAP 2013-01-20 Completed University of 00:00:00 [facility] TDAP 2013-01-20 Completed University of 00:00:00 [facility] Vital Signs Vital Name Observation Time Observation Value Comments Source Diastolic blood 2022-04-30 18:23:00 92 mm[Hg] Unive rsity of [facility] Heart rate 2022-04-30 18:23:00 85 /min Universi ty [facility] Body temperature 2022-04-30 18:23:00 36.61 Hiwot Univ ersity [facility] Respiratory rate 2022-04-30 18:23:00 18 /min [facility] Body height 2022-04-30 18:23:00 160 cm Universi ty of [facility] Body weight 2022-04-30 18:23:00 72.394 kg Universi ty [facility] BMI 2022-04-30 18:23:00 28.27 kg/m2 [facility] Oxygen saturation in 2022-04-30 18:23:00 99 /min [facility] blood by [facility] [place] [facility] Pulse oximetry Branch Systolic blood 2022-04-30 18:23:00 141 mm[Hg] Univer sity of [facility] Systolic blood 2021-07-23 17:11:00 128 mm[Hg] Anais Seybold pressure Diastolic blood 2021-07-23 17:11:00 85 mm[Hg] Kelse y Seybold pressure Heart rate 2021-07-23 17:11:00 95 /min Anais espinalbovon Body temperature 2021-07-23 17:11:00 37 Hiwot [place] ey Seybold Respiratory rate 2021-07-23 17:11:00 20 /min [place] ey Seybold Body height 2021-07-23 17:11:00 160 cm Anais espinalbold Body weight 2021-07-23 17:11:00 72.757 kg Anais S kyliebold BMI 2021-07-23 17:11:00 28.41 kg/m2 Anais S [...] pressure Diastolic blood 2021-03-26 13:56:00 79 mm[Hg] Carmen Gonzalez pressure Heart rate 2021-03-26 13:56:00 102 /min Anais peck Body weight 2021-03-26 13:56:00 80.74 kg Anais peck BMI 2021-03-26 13:56:00 31.53 kg/m2 Anais peck Procedures Procedure Date / Time Performed Performing Clinician Sourc e URINALYSIS NONAUTO W/O 2021-06-18 15:29:00 Issac Cross SCOPE M [id number] 2021-05-30 00:00:00 FINJO RICH [facility] ALT+AST+BUN+CREAT+URIC 2021-04-23 14:42:00 Issac Cross A+CB... M Plan of Care Planned Activity Planned Date Details Comments Source Future Scheduled 2023-01-01 COVID-19 [facility]ACCINE [facility] Test 20:21:29 (#1) [code = COVID-19 VACCINE (#1)] Future Scheduled 2023-01-01 [facility] Test 20:21:29 screening (procedure) [code = 743778676] Future Scheduled 2023-01-01 [facility]ening for [facility] Test 20:21:29 malignant neoplasm of cervix (procedure) [code = 498701404] Future Scheduled 2023-01-01 INFLUENZA VACCINE [facility] Test 20:21:29 [code = INFLUENZA VACCINE] Future Scheduled 2022-07-11 COVID-19 VACCINE [facility] Test 06:31:32 (#1) [code = COVID-19 VACCINE (#1)] Future Scheduled 2022-07-11 [facility] Test 06:31:32 screening (procedure) [code = 120342027] Future Scheduled 2022-07-11 [facility] for [facility] Test 06:31:32 malignant neoplasm of cervix (procedure) [code = 985208190] Future Scheduled 2022-07-11 INFLUENZA [facility]ACCINE [facility] Test 06:31:32 [code = INFLUENZA VACCINE] Encounters Start End Encounter Admission Attending Care Care Encounter Source Date/Time Date/Time Type Type Clinicians Facility Department ID 2021-06-01 Inpatient NAVIN Roman [facility] LD [id number] [facility] 07:50:00 Leeanne [id number] [facility] 2021-06-01 Inpatient NAVIN Roman HCACL LD [id number] [facility] 07:50:00 Leeanne 04 [facility] 2021-04-18 Inpatient Christelle, HCACL MARINA [id number] [facility] 18:59:00 Corinne [id number] [facility] 2020-11-27 Inpatient HCACL SERAFIN [id number] [facility] 21:40:00 [id number] [facility] 2020-10-14 Inpatient HCACL SERAFIN [id number] [facility] 22:50:00 [id number] [facility] 2019-09-19 Inpatient HCACL SERAFIN [id number] [facility] 22:00:00 [facility] 2022-05-08 2022-05-08 Outpatient R RADHA [facility] [id number] Univers 00:00:00 00:00:00 ANAY ellis [facility] 2022-05-01 2022-05-01 Patient Radha [facility] [id number] Univers 00:00:00 00:00:00 Secure Msg Anay Reynoso HEALTH [id number] ity of CANCER 4.2.7.2.686 [facility] - [phone] [facility] [address] 2022-04-30 2022-04-30 Telecom Billing Analyst Lab, [facility] [id number] [facility] 14:00:00 14:15:00 Visit Anay Garcia SPECIALTY 350.1.13 .10 ity of CARE 4.2.7.2.686 [facility] AT [id number] Nh roman [address] 2022-04-30 2022-04-30 Office Radha [facility] [id number] Univers 13:00:00 13:55:50 Visit Anay Reynoso HEALTH [id number] ity of CANCER 4.2.7.2.686 [facility] - [phone] Med ical [facility] [address] 2022-04-30 2022-04-30 Outpatient R RADHA [facility] [id number] Univers 13:00:00 13:55:50 ANAY ity of [facility] 2022-04-30 2022-04-30 Letter Radha [facility] [id number] Univers 00:00:00 00:00:00 [id number] [facility] CANCER 4.2.7.2.686 [facility] - [phone] Med ical [place] [address] Branch 2021-08-13 2021-08-13 Outpatient COVID-PFIZE ANAIS CAMPOS [id number] Anais 14:40:00 14:40:00 R Vladimir BLANKENSHIP CLEAR 2021-07-23 2021-07-23 Office Ruddy RAM [id number] Anais 11:15:00 11:30:00 Visit end, Leeanne JOLLY [id number] Seybold M 1.2.7.2.686 [id number] 2021-07-10 2021-07-10 Outpatient RUDDY CAMPOS [id number] Anais 11:15:00 11:15:00 END, LEEANNE Alcantar ybold 2021-06-26 2021-06-26 Outpatient [id number] ANAIS CAMPOS [id number] Anais 15:10:00 15:10:00 Seybol d 2021-06-26 2021-06-26 Office RUDDY RAM [id number] Anais 14:30:00 14:30:00 Visit END, LEEANNE JOLLY [id number] Seybold 1.2.7.2.686 [id number] 2021-06-26 2021-06-26 Outpatient RUDDY CAMPOS [id number] Anais 00:00:00 00:00:00 END, LEEANNE Alcantar ybold 2021-06-26 2021-06-26 Outpatient FLAVIA CAMPOS [id number] Anais 00:00:00 00:00:00 MD Esther HUANG 2021-06-18 2021-06-18 Office [place] CLEAR [id number] Anais 09:00:00 09:15:00 Visit end, Leeanne JOLLY 350.1.13.13 Seybold M 1.2.7.2.686 [id number] 2021-05-30 2021-06-04 Inpatient EM RICH RomanCL OBPP [id number] [facility] 03:21:00 10:58:00 Leeanne [id number] [facility] 2021-05-30 2021-06-04 Inpatient RICH GrossCL OBPP [id number] [facility] 03:21:00 10:58:00 Leeanne 81 [facility] 2021-06-04 2021-06-04 Outpatient [facility] ANAIS CAMPOS [id number] Anais 09:15:00 09:15:00 END, LEEANNE tovar 2021-06-02 2021-06-02 Outpatient PROVIDER, ANAIS CAMPOS [id number] Anais 00:00:00 00:00:00 AFFILIATE Keisha graham 2021-06-02 2021-06-02 Outpatient [facility] ANAIS CAMPOS [id number] Anais 00:00:00 00:00:00 TH, NATA walker 2021-05-30 2021-05-30 Outpatient KNOW, [facility] OPLA [id number] [facility] ED 10:56:00 10:56:00 DOES_NOT 85 [facility] 2021-05-28 2021-05-28 Routine OB [facility] CLEAR [id number] Anais 11:14:31 11:29:31 end, Leeanne JOLLY 350.1.13.13 Seybold M 1.2.7.2.686 [id number] 2021-05-21 2021-05-21 Routine OB [place] CLEAR [id number] Anais 11:08:41 11:23:41 end, Leeanne JOLLY 350.1.13.13 Seybold M 1.2.7.2.686 [id number] 2021-05-14 2021-05-14 Outpatient COVID-MODER ANAIS CAMPOS [id number] Anais 09:50:00 09:50:00 NA VACC-2, Sey bold CLEAR 2021-05-14 2021-05-14 Routine OB [facility] CLEAR [id number] Anais 08:31:39 08:46:39 [facility] 350.1.13.13 Seybold M 1.2.7.2.686 [id number] 2021-05-07 2021-05-07 Outpatient [id number] ANAIS CAMPOS [id number] Anais 10:55:00 10:55:00 Seybol d 2021-05-07 2021-05-07 Outpatient COVID-PFIZE ANAIS CAMPOS [id number] Anais 10:30:00 10:30:00 R VACC-2, Seyb old CLEAR 2021-05-07 2021-05-07 Routine OB [facility] CLEAR 1.2.840.114 [id number] Anais 09:09:11 09:24:11 end, [facility] 350.1.13.13 Seybold M 1.2.7.2.686 [id number] 2021-05-05 2021-05-05 Outpatient COVID-PFIZE ANAIS CAMPOS [id number] Anais 10:30:00 10:30:00 R VACC-1, Seyb old CLEAR 2021-04-23 2021-04-23 Outpatient COVID-PFIZE ANAIS CAMPOS [id number] Anais 10:50:00 10:50:00 R VACC-1, Seyb old CLEAR 2021-04-23 2021-04-23 Outpatient COVID-PFIZE ANAIS CAMPOS [id number] Anais 10:10:00 10:10:00 R VACC-1, Seyb old CLEAR 2021-04-23 2021-04-23 Outpatient LAB53 ANAIS CAMPOS [id number] Anais 09:40:00 09:40:00 Seybol d 2021-04-23 2021-04-23 Routine OB [facility] CLEAR 1.2.840.114 [id number] Anais 08:38:31 08:53:31 end, Leeanne JOLLY 350.1.13.13 Seybold M 1.2.7.2.686 [id number] 2021-04-18 2021-04-18 Emergency EM Christelle, HCACL MARINA [id number] [facility] 18:59:00 20:30:00 [facility]inne [address] [facility] 2021-04-18 2021-04-18 Outpatient [facility] ANAIS CAMPOS [id number] Anais 00:00:00 00:00:00 END, LEEANNE ybold 2021-04-09 2021-04-09 Routine OB [facility] CLEAR [id number] Anais 08:29:50 08:44:50 end, Leeanne JOLLY 350.1.13.13 Seybold M 1.2.7.2.686 [id number] 2021-03-26 2021-03-26 Routine OB [facility] CLEAR 1.2.840.114 [id number] Anais 08:46:10 09:01:10 end, Leeanne JOLLY 350.1.13.13 Seybold M 1.2.7.2.686 [id number] 2021-03-12 2021-03-12 Outpatient LAB53 ANAIS CAMPOS [id number] Anais 10:25:00 10:25:00 Seybol d 2021-03-12 2021-03-12 Outpatient [facility] ANAIS CAMPOS [id number] Anais 09:00:00 09:00:00 THNATA Seybol d 2021-03-12 2021-03-12 Outpatient [facility] ANAIS CAMPOS [id number] Anais 08:45:00 08:45:00 END, LEEANNE Se ybold 2021-03-07 2021-03-07 Outpatient ANAIS CAMPOS [id number] Anais 07:30:00 07:30:00 Seybol d 2021-03-07 2021-03-07 Outpatient [facility] ANAIS CAMPOS [id number] Anais 00:00:00 00:00:00 END, LEEANNE Se ybold 2021-02-27 2021-02-27 Outpatient FLAVIA ANAIS CAMPOS [id number] Anais 00:00:00 00:00:00 MD Esther HUANG 2021-02-11 2021-02-11 Outpatient ABELNAHED ANAIS CAMPOS [id number] Anais 14:45:00 14:45:00 END, LEEANNE tovar 2020-03-08 2020-03-08 Outpatient [place], [facility] [id number] [place] 00:00:00 00:00:00 SARAH 681 Method i 2020-03-07 2020-03-07 Outpatient [place], [facility] [id number] [place] 00:00:00 00:00:00 SARAH 704 Method i 2020-03-07 2020-03-07 Outpatient [place], [facility] [id number] [place] 00:00:00 00:00:00 SARAH 119 Method i 2020-02-25 2020-02-25 Emergency [place], [facility] [id number] [place] 00:00:00 00:00:00 DOROTEO-BROWN 209 Nh thodi 2019-11-08 2019-11-08 Emergency MARCANTEL, [facility] 064 [id number] [place] 00:00:00 00:00:00 DESMOND 786 Method i 2019-09-27 2019-09-27 Emergency JONATHAN, [facility] [id number] [place] 00:00:00 00:00:00 IMAN [address] Results Test Description Test Time Test Comments Results Result Comments Source PAP TEST, THINPREP, IMAGED 2022-04-29 22:23:11 Test Item Value Reference Range Interpretation Comme nts SOURCE: (test code = Cervical/Endocervical 8001) SLIDES: (test code = 1 8011) LMP: (test code = 04/16/2022 8021) SPECIMEN ADEQUACY: (NOTE) Satisfac tory for (test code = 14008) evaluati on. Endocervical cells/transform ation zone component prese nt. INTERPRETATION: NILM/NO EPITH. 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 CT/NG, TMA, [id number] 22:19:39 Test Item Value Reference Range Interpretation Comments GONORRHEA, TMA NEGATIVE NEGATIVE Assay method ology is (test code = nucleic acid am plification 48376) by transcriptio n mediated amplification ( TMA) utilizing the A ptima Combo 2 Assay. CHLAMYDIA, TMA NEGATIVE NEGATIVE Assay method ology is (test code = nucleic acid am plification 68404) by transcriptio n mediated amplification ( TMA) utilizing the A ptima Combo 2 Assay. VAGINAL PATHOGENS DNA [id number] 16:26:53 Test Item Value Reference Range Interpretation Comments ROHAN SPECIES (test NEGATIVE NEGATIVE code = ) G. VAGINALIS (test NEGATIVE NEGATIVE code = ) T. VAGINALIS (test NEGATIVE NEGATIVE UNLESS O THERWISE code = 74151) INDICATED, ALL TESTING PERFORMED ATCLI NICAL PATHOLOGY [facility], [facility]. [address] [place] [address] 7875 4 LABORATORY DIRE CTOR: WHIT GANN M.D. CLIA NUMBER [id number] [facility] ON NO. HPV HIGH RISK WITH GENOTYPE, [id number] 14:46:15 Test Item Value Reference Range Interpretation Comments HPV HIGH RISK INTERP NEGATIVE NEGATIVE (test code = 24861) HPV 16 (test code = NEGATIVE 29540) HPV 18 (test code = NEGATIVE 35394) HPV, HR, OTHER NEGATIVE Testing meth odology is GENOTYPES (test code real-ti me PCR utilizing = 70815) hydrolysis prob es with the Prescientas 4800 system. The suhas t individually de [...] ATED, ALL TESTING PERFORM ED ATCLINICAL PATH OLY [facility]. [address] [place] [address] LABORATORY DIRE CTOR: WHIT GANN M.D. CLIA NUMBER [id number] [facility] ACCREDITATI ON NO. URINALYSIS NONAUTO W/O [id number] 15:29:00 Test Item Value Reference Range Interpretation Comments UD KETONES (test code Neg 5-160 = 041863) UD GLUCOSE (test code Neg 100-2000 = 850440) UD PROTEIN (test code Neg Trace - 2000 mg/dL = 902799) UD LEUKOCYTES (test Neg Trace - Large @ 2 code = 105465) min. UD NITRITE (test code Neg Neg. - Pos. @ 60 = 069361) sec. UD UROBILINOGEN (test 0.2 mg/dL 0.2-8 code = 808343) UD PH (test code = See_Comment [Automat ed message] 808031) The system mydala generated this result transmit renate reference range : 5.0 - 8.5 @ 60 sec. . The reference range was not used to interpret this result as normal/abnormal . UD BLOOD (test code = Neg Neg. - Large @ 60 241869) sec. UD SPECIFIC GRAVITY See_Comment [Automa renate message] (test code = 914698) The sys tem which generated this result transmit renate reference range : 1.000 - 1.030 @ 45 sec.. The refer ence range was not u sed to interpret th is result as normal/abnormal . UD BILIRUBIN (test Neg Neg. - Large @ 45 code = 403568) sec. Anais SeyboldURINALYSIS [id number] 15:18:00 Test Item Value Reference Range Interpretation [...] NONE SEEN code = SQU) COMPREHENSIVE METABOLIC [id number] 12:59:00 Test Item Value Reference Range Interpretation [...] H TOTAL (test code = ALKP) URIC [id number] 12:59:00 Test Item Value Reference Range Interpretation Comments URIC ACID (test code = URIC) 4.3 mg/dL 2.6-7.2 N LACTIC DEHYDROGENASE(LDH)2021-06-03 12:59:00 Test Item Value Reference Range Interpretation Comments LACTIC DEHYDROGENASE(LDH) (test 195 IUnits/L 84-246 N code = LDH) CBC W/AUTO [id number] 12:24:00 Test Item Value Reference Range Interpretation [...] (test code NO = MDIFF) COMPREHENSIVE METABOLIC [id number] 08:18:00 Test Item Value Reference Range Interpretation [...] TOTAL (test code = ALKP) CBC W/AUTO [id number] 06:45:00 Test Item Value Reference Range Interpretation [...] NO code = MDIFF) CORD ARTERIAL BLOOD [id number] 20:25:00 Test Item Value Reference Range Interpretation [...] = 98.4 F TEMPC) CORD VENOUS BLOOD [id number] 19:49:00 Test Item Value Reference Range Interpretation [...] code = 98.4 F TEMPC) UR PROTEIN/CREATININE [id number] 13:43:00 Test Item Value Reference Range Interpretation [...] AB HIV 1 2 (test code = KVP17WB) Nonreactive Nonreactive RAPID PLASMA [id number] 10:54:00 Test Item Value Reference Range Interpretation Comments RAPID PLASMA REAGIN (test code = NONREACTIVE NONREACTIVE RPR) AG HEPATITIS B [id number] 10:54:00 Test Item Value Reference Range Interpretation Comments AG HEPATITIS B SURFACE NON REACTIVE INDEX NonReactive (test code = HBSAG) COMPREHENSIVE METABOLIC [id number] 04:30:00 Test Item Value Reference Range Interpretation [...] H TOTAL (test code = ALKP) URIC [id number] 04:30:00 Test Item Value Reference Range Interpretation Comments URIC ACID (test code = URIC) 4.6 mg/dL 2.6-7.2 N LACTIC DEHYDROGENASE(LDH)2021-05-30 04:30:00 Test Item Value Reference Range Interpretation Comments LACTIC DEHYDROGENASE(LDH) (test 161 IUnits/L 84-246 N code = LDH) URINALYSIS [id number] 04:23:00 Test Item Value Reference Range Interpretation [...] /LPF NONE SEEN COVID 19 Asymptomatic IH [id number] 04:18:00 Test Item Value Reference Range Interpretation [...] high or waivedcomplexit y tests. CBC W/AUTO [id number] 04:03:00 Test Item Value Reference Range Interpretation [...] AM 126 mL/min/1.73 >59 (test code = 07790-1) EGFR IF AFRICN AM 145 mL/min/1.73 >59 [facility] rp (test code = 68668-2) ronaldo wilsony reports eGFR in complia nce with the curren t ?recommendation s of the National Kidney [...] (SGPT) (test code See_Comment [Auto mated = 1741-6) message] The system which generated this result [...] ated COUNT (test code = message] The 638) system which generated this result transmit renate [...] 1 % Not Estab. (test code = 50234-8) IMMATURE GRANS (ABS) See_Comment [Autom ated (test code = 10516-0) messag e] The system which generated this result transmit renate reference range : 0.0 - 0.1 x10E3/uL. The reference range was not used to interpret this result as normal/abnormal . MAGNUS (test code = MAGNUS) [facility] results reported in Eastern Time. [facility] Clinical Information:SRC :Blood, venous*Venipunc ture ? [facility] Source of Specimen:Blood, venous*Venipunc Lab Interpretation Abnormal (test code = 16138-1) Anais Lisa- US FET BIO PH DE W/O [id number] 00:00:00 [facility] : 1995 Sex: F Name: RUBIN JOEL [facility] : 1995 Age/S: 25 / F [address] [place] [address] Blvd Unit #: [id number] Loc: [place] [address] Phys: Corinne Bourgeois MD Acct: [id number] Dis Date: Status: REG ER PHONE #: [phone] Exam Date: 04/18/20211950 FAX #: [phone] Reason: decreased movement [id number] EXAMS: CPT CODE: [id number] US FET BIO PH DE W/O NST 19959 PROCEDURE INFORMATION: Exam: US Biophysical Profile Without [...] Josefina Harrell RDMS(BR)(AB) Trnscb Date/Time: 04/18/2021 (2010) [email or web address] Orig Print D/T: S: 04/18/2021 (2011) Probe: PAGE 1 Signed ReportURINALYSIS [id number] 23:29:00 Test Item Value Reference Range Interpretation [...] /LPF NONE SEEN - US PREG AFTER [id number] 23:06:00 [facility]UB[facility] : 1995 Sex: F Name: RUBIN JEOL [facility] : 1995 Age/S: 25 / F [address] [place] [address] Unit #: [id number] Loc: [place] [address] Phys: Eran Guzman NP Acct: [id number] Dis Date: Status: REG ER PHONE #: [phone] Exam Date: 11/27/20202234 FAX #: [phone] Reason: 13wk ges, vag bleeding EXAMS: CPT CODE: [id number] US PREG AFTER 38051 STUDY: - DUP AB/PEL/SC/LTD, - US PREG AFTER 11/27/2020 9:47 PM Ordering Physician: Eran Guzman NP Patient Name: RUBIN JOEL MR: [id number] : 1995; Age: 25 years y/o Female [...] 1 Signed Report (CONTINUED) Name: RUBIN JOEL [facility] :1995 Age/S: 25 / F [address] [place] [address] Unit #: [id number] Loc: [place] [address] Phys: Eran Guzman [employer] Acct: [id number] Dis Date: Status: REG ER PHONE #: [phone] Exam Date: 11/27/20202234 FAX #: [phone] Reason: 13wk ges, vag bleeding EXAMS: CPT CODE: [id number] US PREG AFTER 1ST TRI 98888 (Continued) Head circumference: 9.78 cm or 14 weeks 4 days Abdominal circumference: 8.32 cm or 14 weeks 5 days Femur length: 1.42 cm or 14 weeks 1 day Estimated composite gestational age: 14 weeks 3 days ESTIMATED WEIGHT 98+ -15 g ESTIMATED DATE DELIVERY (US) 04/24/2021 IMPRESSION: Normal single live intrauterine at 14 weeks 3 days. Limited evaluation of all structures related to early gestational age without definite abnormality. Mildly limited visualization of thecervix measuring 3.4 cm in length containing mild [...] 2 Signed Report (CONTINUED) Name: [facility]UBIN JO[facility] ED[facility] : 1995 Age/S: 25 / F [address] [place] [address] Unit #: [id number] Loc: [place] [address] Phys: Eran Guzman [employer] Acct: [id number] Dis Date: Status: REG ER PHONE #: [phone] Exam Date: 11/27/20202234 FAX #: [phone] Reason: 13wk ges, vag bleeding EXAMS: CPT CODE: [id number] US PREG AFTER TRI 64204 (Continued) at 2306 Reported and signed by: Clif Baker M.D. CC: Leeanne Roman MD; Eran Guzman NP Technologist: Kyra De La Torre RDMS(AB)(OB) Trnscb Date/Time: 11/27/2020 (2305) [email or web address] Orig Print D/T: S: 11/27/2020 (2308) Probe: PAGE 3 Signed Report- DUP AB/PEL/SC/[id number] 23:06:00 [facility] LEANNA JOLLYName: RUBIN JOEL : 1995 Sex: F Name: RUBIN JOEL [facility] ED[facility]olly : 1995 Age/S: 25 / F [address] [place] [address] Unit #: [id number] Loc: [place] [address] Phys: Eran Guzman [employer] Acct: [id number] Dis Date: Status: REG ER PHONE #: [phone] Exam Date: 11/27/20202235 FAX #: [phone] Reason: see US PREG 1st TRIMTR EXAMS: CPT CODE: [id number] DUP AB/PEL/SC/LTD 77694 STUDY: - DUP AB/PEL/SC/LTD, - US PREG AFTER 1ST TRI 11/27/2020 9:47 PM Ordering Physician: Eran Guzman NP Patient Name: RUBIN JOEL MR: [id number] : 1995; Age: 25 years y/o Female [...] 1 Signed Report (CONTINUED) Name: RUBIN JOEL [facility] [place] : 1995 Age/S: 25 / F [address] [place] [address] Unit #: [id number] Loc: [place] [address] Phys: Eran Guzman NP Acct: [id number] Dis Date: Status: REG ER PHONE #: [phone] Exam Date: 11/27/20202235 FAX #: [phone] Reason: see US PREG 1st TRIMTR EXAMS: CPT CODE: [id number] DUP AB/PEL/SC/LTD 13777 (Continued) Head circumference: 9.78 cm or 14 weeks 4 days Abdominal circumference: 8.32 cm or 14 weeks 5 days Femur length: 1.42 cm or 14 weeks 1 day Estimated composite gestational age: 14 weeks 3 days ESTIMATED WEIGHT 98+ -15 g ESTIMATED DATE DELIVERY (US) 04/24/2021 IMPRESSION: Normal single live intrauterine at 14 weeks 3 days. Limited evaluation of all structures related to [...] of the fetus. 3. Congenital and developmental abnormalitiesare not always sonographically visualized. 4. Repeat sonograms may be necessary depending on the clinical development during . SL: TPAINTER-H PAGE 2 Signed Report (CONTINUED) Name: RUBIN JOEL [facility] : 1995 Age/S: 25 / F [address] [place] [address] Unit #: [id number] Loc: [facility] [place] [address] Phys: Eran Guzman NP Acct: [id number] Dis Date: Status: REG ER PHONE #: [phone] Exam Date: 11/27/20202235 FAX #: [phone] Reason: see US PREG 1st TRIMTR EXAMS: CPT CODE: [id number] DUP AB/PEL/SC/LTD 65884 (Continued) at 2306 Reported and signed by: Clif Baker M.D. CC: Leeanne Roman MD; Eran Guzman NP Technologist: Kyra De La Torre RDMS(AB)(OB) Trnscb Date/Time: 11/27/2020 (2305) [email or web address] Orig Print D/T: S: 11/27/2020 (230) Probe: PAGE 3 Signed Report- DUP AB/PEL/SC/[id number] 00:24:00 [facility] LEANNA JOLLYName: RUBIN JOEL : 1995 Sex: F Name: RUBIN JOEL [facility] Leanna Jolly : 1995 Age/S: 25 / F [address] [place] [address] Blvd Unit #: [id number] Loc: [place] [address] Phys: Eran Guzman NP Acct: [id number] Dis Date: Status: REG ER PHONE #: [phone] Exam Date: 10/14/2020 0005 FAX #: [phone] Reason: see US PREG 1st TRIMTR EXAMS: CPT CODE: [id number] DUP AB/PEL/SC/LTD 17082 STUDY: - US PREG 1ST TRIMTR, - DUP AB/PEL/SC/LTD 10/14/2020 11:13 PM Ordering Physician: Eran Guzman NP Patient Name: RUBIN JOEL MR: [id number] : 1995; Age: 25 years y/o Female Clinical Indication: . , R pelvic pain Comparison: None TRANSABDOMINAL PELVIC ULTRASOUND: Technique: Grayscale, color, and Doppler transabdominal imaging of the pelvis was performed with standard technique. UTERUS: Mildly prominent uterus measuring 9.5 x 5.4 x 6.3 cm without focal myometrial lesion. A well-formed intrauterine gestational sac is present containing a pole measuring 1.8 cm are 8 weeks 1 day with heart rate of 153 bpm. A small crescentic subchorionic hemorrhage is present inferiorly to the gestational sac measuring 1.8 cm maximum dimension. RIGHT OVARY AND ADNEXA: General: Normal size right ovary measuring 3.1 x 1.6 x 2.16containing scattered subcentimeter follicles. Doppler: Normal low resistance arterial and venous blo od flow is demonstrated. LEFT OVARY AND ADNEXA: [...] 1 Signed Report (CONTINUED) Name: RUBIN JOEL [facility] Leanna Jolly : 1995 Age/S: 25 / F [address] [place] [address] Unit #: [id number] Loc: [place] [address] Phys: Eran Guzman NP Acct: [id number] Dis Date: Status: REG ER PHONE #: [phone] Exam Date: 10/14/2020 0005 FAX #: [phone] Reason: see US PREG 1st TRIMTR EXAMS: CPT CODE: [id number] DUP AB/PEL/SC/LTD 88357 (Continued) Singlelive intrauterine at 8 weeks 1 day associated with small subchorionic hemorrhage. SL: TPAINTER-H at 0024 Reported and signed by: Clif Baker M.D. CC: Leeanne Roman MD; Eran Guzman NP Technologist: Kyra De La Torre RDMS(AB)(OB) Trnscb Date/Time: 10/15/2020 (23) SilvioR.[email or web address] Orig Print D/T: S: 10/15/2020 (26) Probe:PAGE 2 Signed Report- US PREG 1ST [id number] 00:24:00 [facility] : 1995 Sex: F Name: RUBIN JOEL [facility] [place] : 1995 Age/S: 25 / F [address] [place] [address] Unit #: [id number] Loc: [place] [address] Phys: Eran Guzman NP Acct: [id number] Dis Date: Status: REG ER PHONE #: [phone] Exam Date: 10/14/2020 0005 FAX #: [phone] Reason: , R pelvic pain EXAMS:CPT CODE: [id number] US PREG 1ST TRIMTR 73103 STUDY: - US PREG 1ST TRIMTR, - DUP AB/PEL/SC/LTD 10/14/2020 11:13 PM Ordering Physician: Eran Guzman NP Patient Name: RUBIN JOEL MR: [id number] : 1995; Age: 25 years y/o Female [...] PAGE 1Signed Report (CONTINUED) Name: RUBIN JOEL [facility] [place] : 1995 Age/S: 25 / F [address] [place] [address] Unit #: [id number] Loc: [place] [address] Phys: Eran Guzman [employer] Acct: [id number] Dis Date: Status: REG ER PHONE #: [phone] Exam Date: 10/14/2020 0005 FAX #: [phone] Reason: , R pelvic pain EXAMS: CPT CODE: [id number] US PREG 1ST TRIMTR 73864 (Continued) Single liveintrauterine at 8 weeks 1 day associated with small subchorionic hemorrhage. SL: TPAINTER-H at 0024 Reported and signed by: Clif Baker M.D. CC: Leeanne Roman MD; Eran Guzman NP Technologist: Kyra De La Torre RDMS(AB)(OB) Trnscb Date/Time: 10/15/2020 (002) [email or web address] Orig Print D/T: S: 10/15/2020 (0027) Probe: PAGE 2 Signed Report- US ABDOMEN [id number] 00:11:00 [facility] : 1995 Sex: F Name: RUBIN JOEL [facility] : 1995 Age/S: 25 / F [address] [place] [address] Unit #: [id number] Loc: [place] [address] Phys: Eran Guzman [employer] Acct: [id number] Dis Date: Status: REG ER PHONE #: [phone] Exam Date: 10/14/2020 0005 FAX #: [phone] Reason: RLQ pain EXAMS: CPT CODE: [id number] US ABDOMEN LTD 33274 Study: - US ABDOMEN LTD 10/14/2020 11:13 PM Patient Name: RUBIN JOEL MR: [id number] : 1995; Age: 25 years y/o Female Ordering Physician: Eran Guzman NP Clinical Indication: . Right lower abdominal [...] 1 Signed Report (CONTINUED) Name: RUBIN JOEL [facility] : 1995 Age/S: 25 / F [address] [place] [address] Bl Unit #: [id number] Loc: [place] [address] Phys: Eran Guzman NP Acct: [id number] Dis Date: Status: REG ER PHONE #: [phone] Exam Date: 10/14/2020 0005 FAX #: [phone] Reason: RLQ painEXAMS: CPT CODE: [id number] US ABDOMEN LTD 76794 (Continued) CC: Leeanne Roman MD; Eran Guzman NP Technologist: Kyra De La Torre RDMS(AB)(OB) Trnscb Date/Time: 10/15/2020 (10) [email or web address] Orig Print D/T:S: 10/15/2020 (001) Probe: PAGE 2 Signed ReportBASIC METABOLIC [id number] 00:08:00 Test Item Value Reference Range Interpretation [...] 9.6 mg/dL 8.0-10.5 N CA) HEPATIC FUNCTION [id number] 00:08:00 Test Item Value Reference Range Interpretation [...] 36 IUnit/L 20-125 N code = ALKP) [id number] 00:08:00 Test Item Value Reference Range Interpretation Comments LIPASE (test code = LIP) 35 U/L 13-57 N HCG [id number] 00:08:00 Test Item Value Reference Range Interpretation Comments HCG SERUM (test 028144.7 0 - 6 NOT P REGNANT > 6 code = HCG) SUGGESTIVE OF E ANABEL RISE S TWO FOLD EVERY 2 DAYS; S UGGEST RECONFIRMING AF TER 2 DAYS. 150,000-200,[address] TRIMESTER 10,00 0 - 50,000 2ND & 3RD TRIME STERResults in yes[place]-Banking Paralegal ational Units/mL UA RFLX MICR CULT IF [id number] 23:49:00 Test Item Value Reference Range Interpretation [...] culture: Suprapubic PainSpecimen Description: CLEAN CATCHCBC W/AUTO [id number] 23:39:00 Test Item Value Reference Range Interpretation [...] in Respiratory specimen by HECTOR with probe [id number] 03:11:53 Test Item Value Reference Range Interpretation Comments SARS-CoV-2 (COVID-19) RNA Not detected Not-Detected [Presence] in Respiratory specimen by HECTOR with probe detection (test code = 96219-5) [facility]- [facility] ABD PELVIS [id number] 23:50:00 Name: RUBIN JOEL [facility] : 1995 Age/S: 23 / F [address] [place] [address] Unit #:[id number] Loc: [place] [address] Phys: Jeff Hansen MD Acct: [id number] Dis Date: Status: REG ERPHONE #: [phone] Exam Date: 09/16/2018 2328 FAX #: [phone] Reason: diffuse abd pain w vomiting EXAMS: CPT CODE: [id number] CT ABD PELVIS W/CONT 39908 EXAM: CT, CT abdomen pelvis with contrast:09/16/2018 [...] STOMACH: Unremarkable. BOWEL: Mildly prominent small bowel withmild surrounding mesenteric stranding may represent mild enteritis. [...] acute abnormality seen. PAGE 1 Signed Report (CONTINUED) Name: RUBIN JOEL : 1995 Age/S: 23 / F [address] [place] [address] Unit #: [id number] Loc: [place] [address] Phys: Jeff Hansen MD Acct: [id number] Dis Date: Status: REG ER PHONE #: [phone] Exam Date: 09/16/2018 2328 FAX #: [phone] Reason: diffuse abd pain w vomiting EXAMS: CPT CODE: [id number] CT ABD PELVIS W/CONT 23440 (Continued) SOFT TISSUES: Unremarkable. IMPRESSION: 1. Mildly prominent small bowel loops and mild mesenteric stranding may represent enteritis. No bowel obstruction seen. 2. Small appendicolith without evidence for acute appendicitis. 3. Left ovarian cyst.. SL: KARLA at 2350 Reported and signed by: Bobby Dolan M.D. CC: Jeff Hansen MD Technologist:Vernon Maxwell RT(R)(CT)CTDI: DLP: Trnscb Date/Time: 09/16/2018 (235) Abrahan.[email or web address] Orig Print D/T: S: 09/16/2018 (2832) CTDI:DLP: PAGE 2 Signed ReportCOMPREHENSIVE METABOLIC [id number] 22:14:00 Test Item Value Reference Range Interpretation [...] 20-125 N TOTAL (test code = ALKP) [id number] 22:14:00 Test Item Value Reference Range Interpretation Comments LIPASE (test code = LIP) 97 IUnit/L 73-393 N HCG SERUM [id number] 22:14:00 Test Item Value Reference Range Interpretation Comments HCG SERUM QUAL (test code = SERUM NEGATIVE NEGATIVE HCGQL) COMPREHENSIVE METABOLIC [id number] 22:12:00 Test Item Value Reference Range Interpretation [...] IUnit/L 20-125 TOTAL (test code = ALKP) [id number] 22:12:00 Test Item Value Reference Range Interpretation Comments LIPASE (test code = LIP) 97 IUnit/L 73-393 N HCG SERUM [id number] 22:12:00 Test Item Value Reference Range Interpretation Comments HCG SERUM QUAL (test code = SERUM NEGATIVE NEGATIVE HCGQL) COMPREHENSIVE METABOLIC [id number] 22:09:00 Test Item Value Reference Range Interpretation [...] TOTAL (test IUnit/L 20-125 code = ALKP) [id number] 22:09:00 Test Item Value Reference Range Interpretation Comments LIPASE (test code = LIP) IUnit/L 73-393 HCG SERUM [id number] 22:09:00 Test Item Value Reference Range Interpretation Comments HCG SERUM QUAL (test code = SERUM NEGATIVE NEGATIVE HCGQL) URINALYSIS [id number] 22:01:00 Test Item Value Reference Range Interpretation [...] BLOOD DIPSTICK (test code = NEGATIVE NEGATIVE FDIEL) UA PH DIPSTICK (test code = JAYLON) [...] NONE SEEN SQU) COMMENTS: Clean CatchCBC W/AUTO [id number] 21:59:00 Test Item Value Reference Range Interpretation [...] DIFF REQUIRED (test code NO = MDIFF) Notes Date/Time Note Provider Source 2021-06-04 08:33:00-00:00 [facility] ([facility]) OB Disch REPORT#:[id number] REPORT STATUS: Signed DATE:06/04/21 TIME: 832 PATIENT: RUBIN JOEL UNIT #: [id number] ROOM/BED: [place] [address] : [birth year] AGE: 25 SEX: F ATTEND: Issac Roman MD ADM AUTHOR: Leeanne Roman MD * ALL edits or amendments must be made on the SupportLocal/TAPP document * Subjective Subjective Admission EGA: Weeks: 39 Days: 5 EGA at delivery (wks/days): 39 weeks Status/day: post operative (#5) Patient reports: Patient reports: Yes: normal lochia, pain management effective, tolerating po well, voiding well, voiding without pain, tolerating a mbulation, flatus, bowel movement. No: complaints, headache, blurred vision. Objective General VS: Vital Signs: Date Time Temp Pulse Resp B/P B/P Pulse O2 O2 F low FiO2 Mean Ox Delivery Rate 06/04 0430 98.4 92 16 129/87 99 06/04 0030 98.1 97 17 131/92 99 06/03 2030 98.4 106 17 130/86 98 06/03 1226 98.4 92 16 129/85 98 Physical Exam Breasts: Breasts: normal, non-tender Flow: colostrum Nipples: normal, intact Feeding: breast and formula Nursing: fair Cardiac: normal rhythm, no clinically sig murmur Lungs: clear to auscultation, unlabored breathin g Neuro: Exam: alert, oriented x3, normal speech DTR's (lower extr): normal 1-2+, no clonus Abdomen: post gravid, soft, no abnormal tenderne ss, no guarding, no rebound tenderness, normoactive bowel sounds Incision site: well approximated edges, dressing clean dry, no drainage, no inflammation Uterus: involution appropriate, non-tender Fundus: firm, below the umbilicus, non-tender Lochia: normal Episiotomy or laceration: none Lower extremities: Edema: trace Leonardo's sign: negative Calf tenderness: negative Discharge Summary General Free Text A P: S/P LTCS-stable. PP HTN-improved on Procardia Spinal HAIDER resolved with caffeine and hydration D'C to home Assessment: nml p rogress, breast feeding w/o diff, HAIDER possible spinal in nature gestational htn improved with Procardi a Date of admission: Date of admission: 05/30/21 Admission diagnosis: labor-spontaneous, labor-te Hospital course: spontaneous labor, primary LTCS in labor, epidural anesthesia, spinal anesthesia, breast feeding difficulty, PP HTN, spinal HAIDER Procedures: epidural anesthesia, spinal anesthes ia, primary CS delivery Discharge condition: stable Discharge to: Home/Self Care Discharge diagnosis: gestational HTN ( ), spinal HAIDER Discharge management: less than 30 mins Baby A: Vaginal delivery: C/S status: live born Gender: male 1 minute: 9 5 minutes: 9 Anomalies: none Nursing data: The data set between the solid lines has been im ported from nursing documentation. Any exceptions have been noted be low under Provider comments. Delivery date A: 05/30/21 Delivery time i nfant A: 1842 Birthweight (gm) A: 4130 Feeding preference: Gender A: Male 1 minute A: 9 5 minutes infant A: 9 10 minutes A: Provider comments on imported nursing data: [] Plan: routine care, discharge today Vaginal packing at delivery: No Discharge Instructions Instructions: routine instr sheet given, instr a nd warnings rev'd, specific instr as noted Diet: Regular Activity: As Tolerated, No Bending, No Driving, No [place] for 6 Wks, No Lifting >10lbs, No Strenuous Activity, Nothing i n vagina pre f/u, Shower Only Additional discharge routines: Attending Follow- Up Wound/dressing care: OK to shower tomorrow, Leav e steri strips Additional instructions: call for heavy bleeding ssx of infection , ssx of toxemia or uncontrolled pain Discharge meds: Start taking the following new medications: HYDROcodone/APAP (NORCO 5/325) 1 TAB TAB 1 TABLET ORAL EVERY 4 HOURS NEEDED. as neede d for PAIN SCALE 4-6 Qty = 30 No Refills IBUPROFEN (MOTRIN) 800 MG TAB 800 MILLIGRAM ORAL EVERY 8 HOURS. Qty = 30 No Refills NIFEdipine XL (PROCARDIA XL) 30 MG TAB.SA 30 MILLIGRAM ORAL DAILY. Qty = 30 No Refills NIFEdipine XL (PROCARDIA XL) 30 MG TAB.SA 30 MILLIGRAM ORAL DAILY. Qty = 30 No Refills Prescriptions: e-prescribe Consultation(s): Consultation performed: anesthesia Reason for consultation: possible spinal HAIDER Add'l Follow-up Appointments Attending Physician: Attending Physician: Leeanne Roman MD Phone: [phone] Attending physician follow up timeframe: In 1- 2 weeks Special instructions: call for heavy bleeding, ssx of infection or tox emia, or uncontrolled pain Electronically Signed by Leeanne Roman MD on at 0840 RPT #:[id number] END OF REPORT 2021-06-03 16:33:00-00:00 [facility] ([facility]) Pain Management Progress Note REPORT#:[id number] REPORT STATUS: Signed DATE:06/03/21 TIME: 163 PATIENT: RUBIN JOEL UNIT #: [id number] ROOM/BED: [place] [address] : 95 AGE: 25 SEX: F ATTEND: Issac Roman MD ADM AUTHOR: Rainer Velazquez MD * ALL edits or amendments must be made on the [employer]/computer document * Diagnosis, Assessment Plan Free text A P: pt. with c/s 05/30 with low grade frontal H/A. pt. states headache worsens while sitting up. Discussed option for a blood patch, however javier ent states improvement of H/A even with ambulating. She would prefer to continue conservative manage ment. . at 1638 RPT #:[id number] END OF REPORT 2021-06-03 11:58:00-00:00 [facility] ([facility]) OB Postpart Progr Note REPORT#:[id number] REPORT STATUS: Signed DATE:06/03/21 TIME: 1158 PATIENT: RUBIN JOEL UNIT #: [id number] ROOM/BED: [place] [address] : 95 AGE: 25 SEX: F ATTEND: Issac Roman MD ADM AUTHOR: Leeanne Roman MD * ALL edits or amendments must be made on the [employer]/computer document * Subjective Subjective Admission EGA: Weeks: 39 Days: 5 EGA at delivery (wks/days): 39 weeks Status/Day: post (day 2), post operative (day 1) Patient reports: Patient reports: Yes normal lochia, Yes tolerating po well, Yes voiding well, Yes voiding without pain, Yes tolerating ambulation, Yes fla tus, Yes headache (worse with standing or sitting), No pain management effecti ve (HAIDER), No bowel movement Comments: Pt states she think her HAIDER w ill go away if she goes home becuase she has a long history of recurrent HAIDER Objective Nursing Documentation Review Nursing Data: The data set between the solid lines has been im ported from nursing documentation. Any exceptions have been noted be low under Provider comments. Feeding preference: Post hemorrhage risk score: Low Risk for Hemorrhage. Provider comments on imported nursing data: [] General VS: Vital Signs: Date Time Temp Pulse Resp B/P B/P Pulse O2 O2 F low FiO2 Mean Ox Delivery Rate 06/03 0820 98.6 95 15 150/83 99 06/03 0400 98.4 99 17 133/83 98 06/03 0010 98.0 103 17 125/82 99 06/02 2030 98.3 100 16 145/88 100 06/02 1635 146/90 06/02 1615 163/100 06/02 1600 97 18 162/98 98 06/02 1330 151/91 PATIENT WEIGHT: Weight (lb): 187 Weight (oz): Weight (kg): 84.822 Notes: Vital Signs: Date Time Temp Pulse Resp B/P B/P Pulse O2 O2 F low FiO2 Mean Ox Delivery Rate 06/03 0820 98.6 95 15 150/83 99 06/03 0400 98.4 99 17 133/83 98 06/03 0010 98.0 103 17 125/82 99 06/02 2030 98.3 100 16 145/88 100 06/02 1635 146/90 06/02 1615 163/100 06/02 1600 97 18 162/98 98 06/02 1330 151/91 06/02 1215 98.5 108 19 151/89 98 Physical Exam Breasts: Breasts: non-tender, soft Flow: colostrum Nipples: intact Feeding: breast or formula, pumping breasts Nursing: poor Cardiac: normal sinus rhythm, no clinically sig murmur Lungs: clear to auscultation Neuro: Exam: alert, oriented x3, normal speech DTR's (lower extr) normal 1-2+, no clonus Abdomen: soft, no abnormal tenderness, no guardi ng, no rebound tenderness, normoactive bowel sounds Incision site: well approximated edges, angelo intact, dry Uterus: firm, involution appropriate, non-tender Fundus: firm, below the umbilicus, non-tender Lochia: normal Lacerations: Perineal laceration(s): None Lower extremities: Edema: trace Leonardo's sign: negative Calf tenderness: negative Result Findings/Data: Laboratory Tests: 06/03 1215 Hematology WBC (4.5 - 11.0 x10 3/uL) 8.0 RBC (3.54 - 5.02 x10 6/uL) 4.01 Hgb (11.0 - 15.0 g/dL) 11.2 Hct (33.0 - 45.0 %) 33.7 MCV (81.0 - 99.0 fL) 84.0 MCH (27.0 - 33.0 pg) 27.9 MCHC (33.0 - 37.0 g/dL) 33.2 RDW (11.5 - 14.5 %) 14.3 Plt Count (150 - 400 x10 3/uL) 284 MPV (7.0 - 9.0 fL) 10.0 H Neut % (Auto) (56.0 - 77.0 %) 71.0 Lymph % (Auto) (14.0 - 32.0 %) 17.9 Candler % (Auto) (4.8 - 9.0 %) 8.0 Eos % (Auto) (0.3 - 3.7 %) 1.7 Baso % (Auto) (0.0 - 2.0 %) 0.4 Neut # (Auto) (2.0 - 7.6 x10 3/uL) 5.70 Lymph # (Auto) (1.0 - 3.8 x10 3/uL) 1.44 Candler # (Auto) (0.1 - 0.8 x10 3/uL) 0.64 Eos # (Auto) (0.0 - 0.2 x10 3/uL) 0.14 Baso # (Auto) (0.0 - 0.2 x10 3/uL) 0.03 Abs Immat Gran (auto) (0.00 - 0.03 x10 3/uL) 0. 08 H Add Manual Diff NO Immature Gran % (0.0 - 2.0 %) 1.0 Nucleated RBC % (0 - 0 %) 0.0 Nucleated RBCs # (Man) (0.0 - 0.1 x10 3/uL) 0.0 0 Diagnosis, Assessment Plan Diagnosis, Assessment Plan Assessment: nml p rogress, breast feeding w/o diff, HAIDER possible spinal in nature, gestational htn improved with Procard ia Plan: routine care, discharge today, discharge tomorrow, anestheia counsult for possible spinal HAIDER Consultation(s): Consultation performed: anesthesia Reason for consultation: possible spinal HAIDER Plan discussed with: patient, parent, nurse Electronically Signed by Leeanne Roman MD on at 1235 RPT #:[id number] END OF REPORT 2021-06-02 08:39:00-00:00 [facility] ([facility]) OB Disch REPORT#:[id number] REPORT STATUS: Signed DATE:06/02/21 TIME: 0839 PATIENT: RUBIN JOEL UNIT #: [id number] ROOM[facility]BED: [facility] : 95 AGE: 25 SEX: F ATTEND: Issac Roman MD ADM AUTHOR: Leeanne Roman MD * ALL edits or amendments must be made on the el [employer]/computer document * Subjective Subjective Admission EGA: Weeks: 39 Days: 5 EGA at delivery (wks/days): 39 weeks Status/day: post operative (#3) Objective General VS: Vital Signs: Date Time Temp Pulse Resp B/P B/P Pulse O2 O2 F low FiO2 Mean Ox Delivery Rate 06/02 0015 98.4 96 18 147/89 97 06/01 2030 98.9 108 16 142/89 100 06/01 1600 98.9 103 18 143/92 98 Physical Exam Breasts: Breasts: normal, non-tender Flow: colostrum Nipples: normal, intact Feeding: breast and formula Nursing: fair Cardiac: normal rhythm, no clinically sig murmur Lungs: clear to auscultation, unlabored breathin g Neuro: Exam: alert, oriented x3, normal speech DTR's (lower extr): normal 1-2+, no clonus Abdomen: post gravid, soft, no abnormal tenderne ss, no guarding, no rebound tenderness, normoactive bowel sounds Incision site: well approximated edges, dressing clean dry, no drainage, no inflammation Uterus: involution appropriate, non-tender Fundus: firm, below the umbilicus, non-tender Lochia: normal Episiotomy or laceration: none Lower extremities: Edema: 1+ pitting Leonardo's sign: negative Calf tenderness: negative Results Findings/Data: Laboratory Tests 05/31 0450 Chemistry Sodium (134 - 147 mEq/L) 137 Potassium (3.4 - 5.0 mEq/L) 3.9 Chloride (100 - 108 mEq/L) 106 Carbon Dioxide (21 - 33 mEq/l) 24 Anion Gap (0 - 20) 11 BUN (7 - 18 mg/dL) < 5 L Creatinine (0.6 - 1.3 mg/dL) 0.7 Glomerular Filtr Rate (110 - 120) 123.4 H Glucose (70 - 110 mg/dL) 72 Calcium (8.0 - 10.5 mg/dL) 8.9 Total Bilirubin (0.0 - 1.0 mg/dL) 0.50 AST (15 - 37 IUnit/L) 31 ALT (30 - 65 IUnit/L) 17 L Total Alk Phosphatase (20 - 125 IUnit/L) 137 H Total Protein (6.4 - 8.2 g/dL) 5.8 L Albumin (3.4 - 5.0 g/dL) 2.70 L Laboratory Tests 05/31 0450 Hematology WBC (4.5 - 11.0 x10 3/uL) 12.0 H RBC (3.54 - 5.02 x10 6/uL) 3.72 Hgb (11.0 - 15.0 g/dL) 10.3 L Hct (33.0 - 45.0 %) 31.8 L MCV (81.0 - 99.0 fL) 85.5 MCH (27.0 - 33.0 pg) 27.7 MCHC (33.0 - 37.0 g/dL) 32.4 L RDW (11.5 - 14.5 %) 14.7 H Plt Count (150 - 400 x10 3/uL) 192 MPV (7.0 - 9.0 fL) 11.5 H Neut % (Auto) (56.0 - 77.0 %) 84.6 H Lymph % (Auto) (14.0 - 32.0 %) 6.7 L Candler % (Auto) (4.8 - 9.0 %) 8.1 Eos % (Auto) (0.3 - 3.7 %) 0.0 L Baso % (Auto) (0.0 - 2.0 %) 0.2 Neut # (Auto) (2.0 - 7.6 x10 3/uL) 10.12 H Lymph # (Auto) (1.0 - 3.8 x10 3/uL) 0.80 L Candler # (Auto) (0.1 - 0.8 x10 3/uL) 0.97 H Eos # (Auto) (0.0 - 0.2 x10 3/uL) 0.00 Baso # (Auto) (0.0 - 0.2 x10 3/uL) 0.02 Abs Immat Gran (auto) (0.00 - 0.03 x10 3/uL) 0. 05 H Add Manual Diff NO Immature Gran % (0.0 - 2.0 %) 0.4 Nucleated RBC % (0 - 0 %) 0.0 Nucleated RBCs # (Man) (0.0 - 0.1 x10 3/uL) 0.0 0 Discharge Summary General Problem List/A P: 1. care following delivery Assessment: nml progress, breast feed ing w/o diff Date of admission: Date of admission: 05/30/21 Admission diagnosis: labor-spontaneous, labor-te rm Hospital course: spontaneous labor, prim damien LTCS in labor, epidural anesthesia Procedures: epidural anesthesia, primary CS deli very Discharge condition: stable Discharge to: Home/Self Care Discharge diagnosis: full-term uncomp delivery Discharge management: less than 30 mins Baby A: Vaginal delivery: C/S status: live born Gender: male 1 minute: 9 5 minutes: 9 Anomalies: none Nursing data: The data set between the solid lines has been im ported from nursing documentation. Any exceptions have been noted be low under Provider comments. Delivery date A: 05/30/21 Delivery time i nfant A: 1842 Birthweight (gm) A: 4130 Feeding preference: Gender A: Male 1 minute infant A: 9 5 minutes infant A: 9 10 minutes A: Provider comments on imported nursing data: [] Plan: discharge tomorrow, add Alta to pain arthur men Vaginal packing at delivery: No Discharge Instructions Instructions: routine instr sheet given, instr a nd warnings rev'd, specific instr as noted Diet: Regular Activity: As Tolerated, No Bending, No Driving, No [place] for 6 Wks, No Lifting >10lbs, No Strenuous Activity, Nothing i n vagina pre f/u, Shower Only Additional discharge routines: Attending Follow- Up Wound/dressing care: OK to shower tomorrow, Leav e steri strips Additional instructions: call for heavy bleeding ssx of infection , ssx of toxemia or uncontrolled pain Contraception discussed: abstinence for 4-6 week s, will discuss at PP visit Discharge meds: Start taking the following new medications: HYDROcodone/APAP (NORCO 5/325) 1 TAB TAB 1 TABLET ORAL EVERY 4 HOURS NEEDED. as neede d for PAIN SCALE 4-6 Qty = 30 No Refills IBUPROFEN (MOTRIN) 800 MG TAB 800 MILLIGRAM ORAL EVERY 8 HOURS. Qty = 30 No Refills NIFEdipine XL (PROCARDIA XL) 30 MG TAB.SA 30 MILLIGRAM ORAL DAILY. Qty = 30 No Refills Prescriptions: e-prescribe Add'l Follow-up Appointments Attending Physician: Attending Physician: Leeanne Roman MD Phone: [phone] Attending physician follow up timeframe: In 1-2 weeks Electronically Signed by Leeanne Roman MD on at 1157 RPT #:[id number] END OF REPORT 2021-06-01 12:52:00-00:00 [facility] ([facility]) OB Postpart Progr Note REPORT#:[id number] REPORT STATUS: Signed DATE:06/01/21 TIME: 1252 PATIENT: RUBIN JOEL UNIT #: [id number] ROOM/BED: [place] [address] : 95 AGE: 25 SEX: F ATTEND: Issac Roman MD ADM AUTHOR: Nata Estrada MD * ALL edits or amendments must be made on the [employer]/computer document * Subjective Subjective Admission EGA: Weeks: 39 Days: 5 Status/Day: post (day 2), post operative (day 1) Patient reports: Patient reports: Yes normal lochia, Yes tolerating po well, Yes tolerating ambulation, Yes flatus, No pain management e ffective, No bowel movement, No nausea, No vomiting, No excessive bleeding, No abdominal pain Nursing reports: Nursing reports: No pain management effective Comments: Not tolerting the Tylenol and Motrin well Objective Nursing Documentation Review Nursing Data: The data set between the solid lines has been im ported from nursing documentation. Any exceptions have been noted be low under Provider comments. Feeding preference: Post hemorrhage risk score: Low Risk for Hemorrhage. Provider comments on imported nursing data: [] General VS: Vital Signs: Date Time Temp Pulse Resp B/P B/P Pulse O2 O2 F low FiO2 Mean Ox Delivery Rate 06/01 0820 98.1 89 16 126/80 99 05/31 2000 98.8 18 122/83 99 05/31 1630 16 99 05/31 1430 17 99 05/31 1330 16 96 PATIENT WEIGHT: Weight (lb): 187 Weight (oz): Weight (kg): 84.822 Physical Exam Cardiac: normal sinus rhythm, no clinically sig murmur Lungs: clear to auscultation Neuro: Exam: alert, oriented x3, normal speech Abdomen: soft Incision site: well approximated edges, angelo intact, dry (dried blood noted on steri str), NO active bleeding Fundus: firm, at the umbilicus, non-tender Lochia: normal CVA tenderness: none Lower extremities: Edema: trace Result Findings/Data: Vital Signs Date Time Temp Pulse Resp B/P B/P Pulse O2 O2 F low FiO2 Mean Ox Delivery Rate 06/01 820 98.1 89 16 126/80 99 05/31 2000 98.8 18 122/83 99 05/31 1630 16 99 05/31 1430 17 99 05/31 1330 16 96 05/31 1230 14 97 05/31 1130 16 98 05/31 1030 16 97 05/31 0930 17 96 05/31 0830 16 98 05/31 0752 98.2 102 16 134/88 99 05/31 0620 98 16 96 05/31 0513 105 16 97 05/31 0418 102 16 96 05/31 0300 98.5 05/31 0300 100 17 117/71 94 05/31 0247 103 16 98 05/31 0145 101 14 96 05/31 0020 98.4 103 18 134/84 98 05/30 2301 112 94 05/30 2256 112 96 05/30 2251 115 98 05/30 2246 118 86 05/30 2241 112 97 05/30 2238 117 84 05/30 2236 109 97 05/30 2231 109 99 05/30 2226 107 97 05/30 2221 104 96 05/30 2216 102 96 05/30 2211 105 99 05/30 2209 113 86 05/30 2206 104 97 05/30 2201 105 99 05/30 2159 104 86 05/30 2156 101 94 05/30 2151 96 96 05/30 2150 100.0 05/30 2150 103 140/74 87 05/30 2146 101 90 05/30 2144 98 84 05/30 2141 111 84 05/30 2138 101 84 05/30 213 100 98 05/30 2135 111.0 05/30 213 95 144/93 05/30 2131 101 97 05/306 105 95 05/30 2121 101 97 05/30 2120 111.0 05/30 2120 102 145/88 05/30 2116 102 99 05/30 2113 99 87 05/30 2111 100 99 05/306 105.0 05/30 2106 107 135/83 97 05/30 2101 99 99 05/30 2056 99 96 05/30 2052 89 84 05/30 2051 95 100 05/300 103.0 05/30 2050 109 132/83 05/30 2046 97 88 05/30 2043 106 85 05/30 2041 99 98 05/30 2036 104 98 05/30 2035 106.0 05/30 2035 106 142/82 05/30 2032 101 86 05/30 2031 104 95 05/30 2026 100 100 05/30 2021 99 98 05/30 2020 109.0 05/30 2020 100 137/90 88 05/30 2016 98 99 /2014 99 86 /2010 101 96 05/30 2009 97 85 / 2006 101 97 05/30 2005 103.0 05/30 2005 98 130/86 05/30 2001 96 92 05/30 1959 105 89 05/306 106 82 05/30 1953 99 86 05/30 1951 97.8 16 05/30 1951 93.0 05/30 1951 103 137/64 94 05/30 1947 98 85 05/30 1946 95 88 05/30 1942 95 93 05/30 1941 92 99 05/30 1934 78.0 05/30 1934 100 110/59 05/30 1748 116 100 05/30 1743 121 100 05/30 1740 107.0 05/30 1740 112 145/82 05/30 1738 117 100 05/30 1733 122 100 05/30 1728 115 100 05/30 1725 110.0 05/30 1725 100 142/90 05/30 1723 103 100 05/30 1718 120 100 05/30 1713 106 100 05/30 1711 117.0 05/30 1711 100 155/94 05/30 1709 114 90 05/30 1708 109 98 05/30 1703 113 100 05/30 1658 120 97 05/30 1655 99.0 05/30 1655 120 132/78 05/30 1653 118 100 05/30 1648 112 100 05/30 1643 115 100 05/30 1641 97.0 05/30 1641 117 133/73 / 1640 111 88 05/30 1638 107 100 05/30 1633 108 100 05/30 1628 101 100 05/30 1627 105.0 05/30 1627 115 137/82 1623 111 100 05/30 1618 104 100 / 1615 115 91 05/30 1613 113 100 / 1612 113.0 05/30 1612 107 136/98 / 1608 98 100 / 1605 116 90 / 1603 104 100 / 1558 114 100 / 1555 108.0 05/30 1555 103 137/90 / 1553 104 100 / 1548 103 100 / 1543 110 100 /12 1540 103.0 /12 1540 103 132/84 /12 1538 116 100 / 1533 104 99 / 1528 103 100 / 1525 103.0 /12 1525 105 134/84 05/30 1523 110 100 05/30 1520 114 94 05/30 1518 105 99 05/30 1513 104 99 05/30 1512 96.0 05/30 1512 104 129/78 05/30 1508 109 99 05/30 1503 104 99 05/30 1458 112 99 05/30 1455 98.3 18 05/30 1455 88.0 05/30 1455 109 122/70 05/30 1454 114 93 05/30 1453 114 100 05/30 1448 121 92 05/30 1443 115 100 05/30 1440 104.0 05/30 1440 114 133/84 05/30 1438 112 100 05/30 1433 112 99 05/30 1428 117 100 05/30 1425 116 91 05/30 1423 118 100 05/30 1418 112 98 05/30 1413 112 100 05/30 1412 115 91 05/30 1410 99.0 05/30 1410 118 137/73 05/30 1408 123 94 05/30 1406 44 60 05/30 1403 149 91 05/30 1400 118 89 05/30 1358 124 100 05/30 1356 90.0 05/30 1356 123 128/64 05/30 1355 114 88 05/30 1353 111 100 05/30 1348 129 100 05/30 1343 119 100 05/30 1342 93.0 05/30 1342 122 144/65 05/30 1338 122 84 05/30 1336 121 90 05/30 1333 142 94 05/30 1328 117 88 05/30 1326 83.0 05/30 1326 136 125/58 05/30 1323 116 100 05/30 1322 122 92 05/30 1318 116 100 05/30 1313 115 100 05/30 1310 98.1 18 05/30 1310 92.0 05/30 1310 114 120/75 05/30 1308 129 99 05/30 1307 124 90 05/30 1303 134 100 05/30 1258 123 100 Laboratory Tests: 05/31 05/30 05/30 05/30 0450 UNK UNK 0335 Blood Gas Cord Blood pH (7.18 - 7.38) 7.16 *L Cord Blood PCO2 (32 - 66 mmHg) 81 H Cord Blood PO2 (6 - 30 mmHg) 5 L Cord Blood HCO3 (17 - 27 mmol/L) 29 H Cord Base Excess (-8.0 - 0.0 mmol/L) 0.6 H Cord VBG pH (7.25 - 7.45) 7.27 Cord VBG pCO2 (27 - 49 mmHg) 59 H Cord VBG pO2 (17 - 41 mmHg) 19 Cord VBG HCO3 (12 - 28 MMOL/L) 27.0 Cord VBG Base Excess (-8.0 - 0.00 mmol/L) 0.0 Cord VBG O2 Sat (%) 23 Temperature (F) 98.4 98.4 Chemistry Sodium (134 - 147 mEq/L) 137 Potassium (3.4 - 5.0 mEq/L) 3.9 Chloride (100 - 108 mEq/L) 106 Carbon Dioxide (21 - 33 mEq/l) 24 Anion Gap (0 - 20) 11 BUN (7 - 18 mg/dL) < 5 L Creatinine (0.6 - 1.3 mg/dL) 0.7 Glomerular Filtr Rate (110 - 120) 123.4 H Glucose (70 - 110 mg/dL) 72 Calcium (8.0 - 10.5 mg/dL) 8.9 Total Bilirubin (0.0 - 1.0 mg/dL) 0.50 AST (15 - 37 IUnit/L) 31 ALT (30 - 65 IUnit/L) 17 L Total Alk Phosphatase (20 - 125 IUnit/L) 137 H Total Protein (6.4 - 8.2 g/dL) 5.8 L Albumin (3.4 - 5.0 g/dL) 2.70 L Hematology WBC (4.5 - 11.0 x10 3/uL) 12.0 H RBC (3.54 - 5.02 x10 6/uL) 3.72 Hgb (11.0 - 15.0 g/dL) 10.3 L Hct (33.0 - 45.0 %) 31.8 L MCV (81.0 - 99.0 fL) 85.5 MCH (27.0 - 33.0 pg) 27.7 MCHC (33.0 - 37.0 g/dL) 32.4 L RDW (11.5 - 14.5 %) 14.7 H Plt Count (150 - 400 x10 3/uL) 192 MPV (7.0 - 9.0 fL) 11.5 H Neut % (Auto) (56.0 - 77.0 %) 84.6 H Lymph % (Auto) (14.0 - 32.0 %) 6.7 L Candler % (Auto) (4.8 - 9.0 %) 8.1 Eos % (Auto) (0.3 - 3.7 %) 0.0 L Baso % (Auto) (0.0 - 2.0 %) 0.2 Neut # (Auto) (2.0 - 7.6 x10 3/uL) 10.12 H Lymph # (Auto) (1.0 - 3.8 x10 3/uL) 0.80 L Candler # (Auto) (0.1 - 0.8 x10 3/uL) 0.97 H Eos # (Auto) (0.0 - 0.2 x10 3/uL) 0.00 Baso # (Auto) (0.0 - 0.2 x10 3/uL) 0.02 Abs Immat Gran (auto) (0.00 - 0.03 0.05 H x10 3/uL) Add Manual Diff NO Immature Gran % (0.0 - 2.0 %) 0.4 Nucleated RBC % (0 - 0 %) 0.0 Nucleated RBCs # (Man) (0.0 - 0.1 x10 3/uL) 0.0 0 Serology SARS-CoV-2 Ag (Rapid) (Negative) Negative 05/30 05/30 05/30 0330 0230 0230 Chemistry Sodium (134 - 147 mEq/L) 135 Potassium (3.4 - 5.0 mEq/L) 3.9 Chloride (100 - 108 mEq/L) 104 Carbon Dioxide (21 - 33 mEq/l) 23 Anion Gap (0 - 20) 12 BUN (7 - 18 mg/dL) < 5 L Creatinine (0.6 - 1.3 mg/dL) 0.6 Glomerular Filtr Rate (110 - 120) 147.4 H Glucose (70 - 110 mg/dL) 88 Uric Acid (2.6 - 7.2 mg/dL) 4.6 Calcium (8.0 - 10.5 mg/dL) 9.2 Total Bilirubin (0.0 - 1.0 mg/dL) 0.40 AST (15 - 37 IUnit/L) 21 ALT (30 - 65 IUnit/L) 11 L Total Alk Phosphatase (20 - 125 IUnit/L) 183 H Lactate Dehydrogenase (84 - 246 IUnits/L) 161 Total Protein (6.4 - 8.2 g/dL) 7.0 Albumin (3.4 - 5.0 g/dL) 3.40 Hematology WBC (4.5 - 11.0 x10 3/uL) 10.5 RBC (3.54 - 5.02 x10 6/uL) 4.11 Hgb (11.0 - 15.0 g/dL) 11.3 Hct (33.0 - 45.0 %) 35.4 MCV (81.0 - 99.0 fL) 86.1 MCH (27.0 - 33.0 pg) 27.5 MCHC (33.0 - 37.0 g/dL) 31.9 L RDW (11.5 - 14.5 %) 14.6 H Plt Count (150 - 400 x10 3/uL) 197 MPV (7.0 - 9.0 fL) 11.2 H Neut % (Auto) (56.0 - 77.0 %) 83.2 H Lymph % (Auto) (14.0 - 32.0 %) 9.6 L Candler % (Auto) (4.8 - 9.0 %) 6.4 Eos % (Auto) (0.3 - 3.7 %) 0.1 L Baso % (Auto) (0.0 - 2.0 %) 0.2 Neut # (Auto) (2.0 - 7.6 x10 3/uL) 8.73 H Lymph # (Auto) (1.0 - 3.8 x10 3/uL) 1.01 Candler # (Auto) (0.1 - 0.8 x10 3/uL) 0.67 Eos # (Auto) (0.0 - 0.2 x10 3/uL) 0.01 Baso # (Auto) (0.0 - 0.2 x10 3/uL) 0.02 Abs Immat Gran (auto) (0.00 - 0.03 x10 3/uL) 0. 05 H Add Manual Diff NO Immature Gran % (0.0 - 2.0 %) 0.5 Nucleated RBC % (0 - 0 %) 0.0 Nucleated RBCs # (Man) (0.0 - 0.1 x10 3/uL) 0.0 0 Serology RPR (NONREACTIVE) NONREACTIVE Hep Bs Antigen (NonReactive INDEX) NON REACTIVE HIV 1 2 Antibody Screen (Nonreactive) Nonreacti ve Urines Urine Color (YEL/STRAW) YELLOW Urine Appearance (CLEAR) CLEAR Urine pH (5.0 - 7.0) 6.0 Ur Specific [place] (1.005 - 1.030) 1.017 Urine Protein (NEGATIVE) 1+ H Urine Glucose (UA) (NEGATIVE) NEGATIVE Urine Ketones (NEGATIVE) 1+ H Urine Blood (NEGATIVE) 1+ H Urine Nitrite (NEGATIVE) NEGATIVE Urine Bilirubin (NEGATIVE) NEGATIVE Urine Urobilinogen (0.2 - 1.0 mg/dL) 0.2 Ur Leukocyte Esterase (NEGATIVE) NEGATIVE Urine RBC (0 - 3 RBC/HPF) 4-10 Urine WBC (0 - 3 WBC/HPF) 4-9 H Ur Squamous Epith Cells (NONE SEEN /HPF) 0-5 Urine Bacteria (NONE SEEN /HPF) NONE SEEN Urine Mucus (NONE SEEN /LPF) TRACE Ur Random Creatinine (mg/dL) 145.7 U Random Total Protein (mg/dL) 40 Protein/Creatinin Ratio 0.27 Results: labs reviewed, vitl signs stable Diagnosis, Assessment Plan Diagnosis, Assessment Plan Problem List/A P: 1. care following delivery Assessment: nml progress, breast feed ing w/o diff Plan: discharge tomorrow, add [place] to pain arthur men Plan discussed with: patient, parent, nurse at 1255 RPT #:[id number] END OF REPORT 2021-05-31 13:58:00-00:00 [facility] ([facility] OB Postpart Progr Note REPORT#:[id number] REPORT STATUS: Signed DATE:05/31/21 TIME: 1358 PATIENT: RUBIN JOEL UNIT #: [id number] ROOM/BED: [place] [address] : 95 AGE: 25 SEX: F ATTEND: Issac Roman MD ADM AUTHOR: Ntaa Estrada MD * ALL edits or amendments must be made on the [employer]/computer document * Subjective Subjective Admission EGA: Weeks: 39 Days: 5 Status/Day: post , post operative (day 1) Patient reports: Patient reports: Yes normal lochia, Yes pain management effective, Yes tolerating po well, Yes voiding without pain, Yes tolerating amb ulation, Yes flatus, No no complaints, No bowel movement, No nausea, No vomiting, No ex cessive bleeding Nursing reports: Nursing reports: No complaints Objective Nursing Documentation Review Nursing Data: The data set between the solid lines has been im ported from nursing documentation. Any exceptions have been noted be low under Provider comments. Feeding preference: Post hemorrhage risk score: Low Risk for Hemorrhage. Provider comments on imported nursing data: [] General VS: Vital Signs: Date Time Temp Pulse Resp B/P B/P Pulse O2 O2 F low FiO2 Mean Ox Delivery Rate 05/31 0752 98.2 102 16 134/88 99 05/31 0620 98 16 96 05/31 0513 105 16 97 05/31 0418 102 16 96 05/31 0300 98.5 05/31 0300 100 17 117/71 94 05/31 0247 103 16 98 05/31 0145 101 14 96 05/31 0020 98.4 103 18 134/84 98 05/30 2301 112 94 05/30 2256 112 96 05/30 2251 115 98 05/30 2246 118 86 05/30 2241 112 97 05/30 2238 117 84 05/30 2236 109 97 05/30 2231 109 99 05/30 2226 107 97 05/30 2221 104 96 05/30 2216 102 96 05/30 2211 105 99 05/30 2209 113 86 05/30 2206 104 97 05/30 2201 105 99 05/30 2159 104 86 05/30 2156 101 94 05/30 2151 96 96 05/30 2150 100.0 05/30 2150 103 140/74 87 05/30 2146 101 90 05/30 2144 98 84 05/30 2141 111 84 05/30 2138 101 84 05/30 2136 100 98 05/30 2135 111.0 05/30 2135 95 144/93 05/30 2131 101 97 05/30 2126 105 95 05/30 2121 101 97 05/30 2120 111.0 05/30 2120 102 145/88 05/30 2116 102 99 05/30 2113 99 87 05/30 2111 100 99 05/30 210 105.0 05/30 2106 107 135/83 97 05/30 2101 99 99 05/30 2056 99 96 05/30 2052 89 84 05/30 2051 95 100 05/30 2050 103.0 05/30 2050 109 132/83 05/30 2046 97 88 05/30 2043 106 85 05/30 2041 99 98 05/30 2036 104 98 05/30 2035 106.0 05/30 2035 106 142/82 05/30 2032 101 86 05/30 2031 104 95 05/30 2026 100 100 05/30 2021 99 98 05/30 2020 109.0 05/30 2020 100 137/90 88 05/30 2016 98 99 /2014 99 86 /2010 101 96 11/12 2009 97 85 11/12 2006 101 97 11/12 2005 103.0 11/12 2005 98 130/86 11/12 2001 96 92 / 1959 105 89 / 1956 106 82 /12 1953 99 86 / 1951 97.8 16 / 1951 93.0 11/ 1951 103 137/64 94 / 1947 98 85 / 1946 95 88 / 1942 95 93 / 1941 92 99 / 1934 78.0 05/30 1934 100 110/59 / 1748 116 100 / 1743 121 100 05/30 1740 107.0 05/30 1740 112 145/82 05/30 1738 117 100 05/30 1733 122 100 05/30 1728 115 100 / 1725 110.0 /12 1725 100 142/90 / 1723 103 100 05/30 1718 120 100 / 1713 106 100 / 1711 117.0 05/30 1711 100 155/94 05/30 1709 114 90 05/30 1708 109 98 / 1703 113 100 05/30 1658 120 97 05/30 1655 99.0 05/30 1655 120 132/78 05/30 1653 118 100 05/30 1648 112 100 05/30 1643 115 100 05/30 1641 97.0 05/30 1641 117 133/73 / 1640 111 88 05/30 1638 107 100 05/30 1633 108 100 / 1628 101 100 05/30 1627 105.0 / 1627 115 137/82 /12 1623 111 100 05/30 1618 104 100 / 1615 115 91 /12 1613 113 100 / 1612 113.0 / 1612 107 136/98 / 1608 98 100 / 1605 116 90 / 1603 104 100 /12 1558 114 100 11/12 1555 108.0 11/12 1555 103 137/90 11/12 1553 104 100 05/30 1548 103 100 05/30 1543 110 100 05/30 1540 103.0 05/30 1540 103 132/84 05/30 1538 116 100 05/30 1533 104 99 05/30 1528 103 100 05/30 1525 103.0 05/30 1525 105 134/84 05/30 1523 110 100 05/30 1520 114 94 05/30 1518 105 99 05/30 1513 104 99 05/30 1512 96.0 05/30 1512 104 129/78 05/30 1508 109 99 05/30 1503 104 99 05/30 1458 112 99 05/30 1455 98.3 18 05/30 1455 88.0 05/30 1455 109 122/70 05/30 1454 114 93 05/30 1453 114 100 05/30 1448 121 92 05/30 1443 115 100 05/30 1440 104.0 05/30 1440 114 133/84 05/30 1438 112 100 05/30 1433 112 99 05/30 1428 117 100 05/30 1425 116 91 05/30 1423 118 100 05/30 1418 112 98 05/30 1413 112 100 05/30 1412 115 91 05/30 1410 99.0 05/30 1410 118 137/73 05/30 1408 123 94 05/30 1406 44 60 05/30 1403 149 91 05/30 1400 118 89 PATIENT WEIGHT: Weight (lb): 187 Weight (oz): Weight (kg): 84.822 Physical Exam Cardiac: normal sinus rhythm, no clinically sig murmur Lungs: clear to auscultation Neuro: Exam: alert, oriented x3, normal speech Abdomen: soft Incision site: well approximated edges, angelo intact, dry (dried blood noted on steri str), NO active bleeding Fundus: firm, at the umbilicus, non-tender Lochia: normal CVA tenderness: none Lower extremities: Edema: trace Result Findings/Data: Vital Signs Date Time Temp Pulse Resp B/P B/P Pulse O2 O2 F low FiO2 Mean Ox Delivery Rate 05/31 0752 98.2 102 16 134/88 99 05/31 0620 98 16 96 05/31 0513 105 16 97 05/31 0418 102 16 96 05/31 0300 98.5 05/31 0300 100 17 117/71 94 05/31 0247 103 16 98 05/31 0145 101 14 96 05/31 0020 98.4 103 18 134/84 98 05/30 2301 112 94 05/30 2256 112 96 05/30 2251 115 98 05/30 2246 118 86 05/30 2241 112 97 05/30 2238 117 84 05/30 2236 109 97 05/30 2231 109 99 05/30 2226 107 97 05/30 2221 104 96 05/30 2216 102 96 05/30 2211 105 99 05/30 2209 113 86 05/30 2206 104 97 05/30 2201 105 99 05/30 2159 104 86 05/30 2156 101 94 05/30 2151 96 96 05/30 2150 100.0 05/30 2150 103 140/74 87 05/30 2146 101 90 05/30 2144 98 84 05/30 2141 111 84 05/30 2138 101 84 05/30 2136 100 98 05/30 2135 111.0 05/30 2135 95 144/93 05/30 2131 101 97 05/30 2126 105 95 05/30 2121 101 97 05/30 2120 111.0 05/30 2120 102 145/88 05/30 2116 102 99 05/30 2113 99 87 05/30 2111 100 99 05/30 2106 105.0 05/30 2106 107 135/83 97 05/30 2101 99 99 05/30 2056 99 96 05/30 2052 89 84 05/30 205 95 100 05/30 2050 103.0 05/300 109 132/83 05/306 97 88 05/303 106 85 05/30 2041 99 98 05/30 2036 104 98 05/305 106.0 05/30 2035 106 142/82 05/30 2032 101 86 05/30 2031 104 95 05/306 100 100 05/30 2021 99 98 05/30 2020 109.0 05/30 2020 100 137/90 88 05/30 2016 98 99 05/30 2015 99 86 05/30 2011 101 96 05/30 2009 97 85 05/30 2006 101 97 05/30 2005 103.0 05/30 2005 98 130/86 11/12 2001 96 92 /1958 105 89 /6 106 82 11/ 1953 99 86 11/ 1951 97.8 16 11/ 1951 93.0 11/ 1951 103 137/64 94 11/ 1947 98 85 11/ 1946 95 88 11/ 1942 95 93 11/12 1941 92 99 11/12 1934 78.0 11/12 1934 100 110/59 11/12 1748 116 100 11/12 1743 121 100 11/12 1740 107.0 11/12 1740 112 145/82 /12 1738 117 100 11/12 1733 122 100 /12 1728 115 100 11/12 1725 110.0 11/12 1725 100 142/90 /12 1723 103 100 / 1718 120 100 11/12 1713 106 100 11/12 1711 117.0 11/12 1711 100 155/94 / 1709 114 90 / 1708 109 98 / 1703 113 100 / 1658 120 97 / 1655 99.0 11/12 1655 120 132/78 /12 1653 118 100 / 1648 112 100 11/ 1643 115 100 11/12 1641 97.0 /12 1641 117 133/73 /12 1640 111 88 / 1638 107 100 11/12 1633 108 100 11/12 1628 101 100 / 1627 105.0 / 1627 115 137/82 /12 1623 111 100 / 1618 104 100 /12 1615 115 91 11/12 1613 113 100 11/12 1612 113.0 11/12 1612 107 136/98 /12 1608 98 100 / 1605 116 90 /12 1603 104 100 11/12 1558 114 100 11/12 1555 108.0 11/12 1555 103 137/90 11/12 1553 104 100 11/12 1548 103 100 11/12 1543 110 100 11/12 1540 103.0 11/12 1540 103 132/84 11/12 1538 116 100 11/12 1533 104 99 11/12 1528 103 100 11/12 1525 103.0 11/12 1525 105 134/84 11/12 1523 110 100 05/30 1520 114 94 05/30 1518 105 99 05/30 1513 104 99 05/30 1512 96.0 05/30 1512 104 129/78 05/30 1508 109 99 05/30 1503 104 99 05/30 1458 112 99 05/30 1455 98.3 18 05/30 1455 88.0 05/30 1455 109 122/70 05/30 1454 114 93 05/30 1453 114 100 05/30 1448 121 92 05/30 1443 115 100 05/30 1440 104.0 05/30 1440 114 133/84 05/30 1438 112 100 05/30 1433 112 99 05/30 1428 117 100 05/30 1425 116 91 05/30 1423 118 100 05/30 1418 112 98 05/30 1413 112 100 05/30 1412 115 91 05/30 1410 99.0 05/30 1410 118 137/73 05/30 1408 123 94 05/30 1406 44 60 05/30 1403 149 91 05/30 1400 118 89 05/30 1358 124 100 05/30 1356 90.0 05/30 1356 123 128/64 05/30 1355 114 88 05/30 1353 111 100 05/30 1348 129 100 05/30 1343 119 100 05/30 1342 93.0 05/30 1342 122 144/65 05/30 1338 122 84 05/30 1336 121 90 05/30 1333 142 94 05/30 1328 117 88 05/30 1326 83.0 05/30 1326 136 125/58 05/30 1323 116 100 05/30 1322 122 92 05/30 1318 116 100 05/30 1313 115 100 05/30 1310 98.1 18 05/30 1310 92.0 05/30 1310 114 120/75 05/30 1308 129 99 05/30 1307 124 90 05/30 1303 134 100 05/30 1258 123 100 05/30 1254 146 92 05/30 1253 131 100 05/30 1248 135 100 05/30 1247 135 86 05/30 1243 135 100 05/30 1240 112.0 05/30 1240 120 136/97 05/30 1238 142 96 05/30 1233 119 99 05/30 1231 115 92 11/12 1229 88.0 05/30 1229 113 129/61 05/30 1228 133 100 05/30 1223 114 82 05/30 1222 84.0 05/30 1222 115 126/58 05/30 1218 107 77 05/30 1213 105 100 05/30 1211 103.0 05/30 1211 107 133/82 88 05/30 1208 104 100 05/30 1203 110 100 05/30 1201 96.0 05/30 1201 106 124/77 05/30 1158 107 100 05/30 1153 111 100 05/30 1150 98.0 05/30 1150 109 128/77 05/30 1148 110 92 05/30 1143 111 96 05/30 1142 117 89 05/30 1140 92.0 05/30 1140 109 121/75 05/30 1138 108 100 05/30 1136 109 91 05/30 1133 109 100 05/30 1132 99.0 05/30 1132 108 125/80 05/30 1129 114 92 05/30 1127 108 100 05/30 1122 103 100 05/30 1120 99.0 05/30 1120 104 132/77 05/30 1117 112 93 05/30 1112 105 100 05/30 1110 110.0 05/30 1110 109 143/86 05/30 1108 100.0 05/30 1108 108 132/79 91 05/30 1107 109 97 05/30 1102 109 100 05/30 1057 117 99 05/30 1053 110.0 05/30 1053 106 154/82 05/30 1052 108 99 05/30 1047 110 100 05/30 1044 118.0 05/30 1044 108 169/86 05/30 1042 115 100 05/30 1037 106 100 05/30 1033 110 91 05/30 1032 114 95 05/30 1027 115 100 05/30 1024 116.0 05/30 1024 117 161/86 05/30 1022 112 100 05/30 1017 126 96 05/30 1012 113 100 05/30 1008 113.0 05/30 1008 112 153/84 05/30 1006 109 99 05/30 1001 111 100 05/30 0956 114 100 05/30 0954 125.0 11/12 0954 107 159/103 11/12 0951 110 100 11/12 0946 107 99 11/12 0944 123.0 11/12 0944 109 157/102 11/12 0941 107 100 11/12 0936 110 100 11/12 0931 119 98 11/12 0926 114 100 11/12 0924 98.4 20 11/12 0924 118.0 11/12 0924 113 154/97 11/12 0921 118 99 11/12 0919 118 93 11/12 0916 111 100 11/12 0911 114 100 11/12 0909 117.0 11/12 0909 114 156/91 11/12 0906 120 100 11/12 0901 109 100 11/12 0856 113 100 11/12 0854 109.0 11/12 0854 112 142/87 11/12 0851 117 100 11/12 0846 108 99 11/12 0841 108 100 11/12 0840 130.0 11/12 0840 100 167/108 11/12 0836 102 99 11/12 0831 116 100 11/12 0826 101 100 11/12 0824 130.0 11/12 0824 105 176/99 11/12 0821 103 99 11/12 0817 110 90 11/12 0816 101 100 11/12 0811 102 100 11/12 0810 110.0 11/12 0810 100 145/85 11/12 0806 114 100 11/12 0801 113 100 11/12 0756 110 99 11/12 0753 104.0 11/12 0753 110 135/84 11/12 0751 106 100 11/12 0746 107 100 11/12 0741 102 100 11/12 0738 110.0 11/12 0738 103 141/92 11/12 0736 106 99 11/12 0731 100 100 11/12 0726 103 99 11/12 0724 107.0 11/12 0724 105 140/88 11/12 0721 110 99 11/12 0716 109 100 11/12 0711 110 100 11/12 0709 104.0 11/12 0709 98.0 104 141/81 11/12 0706 109 99 11/12 0701 110 99 11/12 0656 108 100 11/12 0653 104.0 11/12 0653 107 134/86 11/12 0652 107 91 11/12 0651 111 100 11/12 0646 114 100 /12 0641 118 86 /12 0638 105.0 / 0638 105 137/83 / 0636 112 91 / 0631 109 99 / 0626 113 100 /12 0624 96.0 11/12 0624 112 123/80 /12 0621 109 100 /12 0616 108 99 /12 0611 107 99 /12 0606 111 99 /12 0605 86.0 /12 0605 116 115/66 /12 0601 115 100 /12 0559 95.0 /12 0559 113 124/77 / 0556 110 100 / 0554 95.0 / 0554 116 129/74 / 0551 132 100 / 0546 126 100 / 0545 83.0 / 0545 118 127/58 / 0541 107.0 / 0541 134 174/83 100 / 0538 94.0 05/30 0538 112 157/65 05/30 0536 115 100 05/30 0531 104 100 / 0526 97 100 / 0524 121.0 05/30 0524 98 142/106 05/30 0521 116 100 / 0516 107 100 / 0511 110 100 05/30 0506 113 100 05/30 0501 105 100 05/30 0424 126.0 05/30 0424 97.4 97 18 165/99 99 05/30 0258 110.0 05/30 0258 88 148/84 05/30 0242 104.0 05/30 0242 92 137/82 05/30 0227 98 99 05/30 0226 109.0 05/30 0226 98.9 93 20 141/86 05/30 0222 101 100 Laboratory Tests: 05/31 05/30 05/30 05/30 0450 UNK UNK 0335 Blood Gas Cord Blood pH (7.18 - 7.38) 7.16 *L Cord Blood PCO2 (32 - 66 mmHg) 81 H Cord Blood PO2 (6 - 30 mmHg) 5 L Cord Blood HCO3 (17 - 27 mmol/L) 29 H Cord Base Excess (-8.0 - 0.0 mmol/L) 0.6 H Cord VBG pH (7.25 - 7.45) 7.27 Cord VBG pCO2 (27 - 49 mmHg) 59 H Cord VBG pO2 (17 - 41 mmHg) 19 Cord VBG HCO3 (12 - 28 MMOL/L) 27.0 Cord VBG Base Excess (-8.0 - 0.00 mmol/L) 0.0 Cord VBG O2 Sat (%) 23 Temperature (F) 98.4 98.4 Chemistry Sodium (134 - 147 mEq/L) 137 Potassium (3.4 - 5.0 mEq/L) 3.9 Chloride (100 - 108 mEq/L) 106 Carbon Dioxide (21 - 33 mEq/l) 24 Anion Gap (0 - 20) 11 BUN (7 - 18 mg/dL) < 5 L Creatinine (0.6 - 1.3 mg/dL) 0.7 Glomerular Filtr Rate (110 - 120) 123.4 H Glucose (70 - 110 mg/dL) 72 Calcium (8.0 - 10.5 mg/dL) 8.9 Total Bilirubin (0.0 - 1.0 mg/dL) 0.50 AST (15 - 37 IUnit/L) 31 ALT (30 - 65 IUnit/L) 17 L Total Alk Phosphatase (20 - 125 IUnit/L) 137 H Total Protein (6.4 - 8.2 g/dL) 5.8 L Albumin (3.4 - 5.0 g/dL) 2.70 L Hematology WBC (4.5 - 11.0 x10 3/uL) 12.0 H RBC (3.54 - 5.02 x10 6/uL) 3.72 Hgb (11.0 - 15.0 g/dL) 10.3 L Hct (33.0 - 45.0 %) 31.8 L MCV (81.0 - 99.0 fL) 85.5 MCH (27.0 - 33.0 pg) 27.7 MCHC (33.0 - 37.0 g/dL) 32.4 L RDW (11.5 - 14.5 %) 14.7 H Plt Count (150 - 400 x10 3/uL) 192 MPV (7.0 - 9.0 fL) 11.5 H Neut % (Auto) (56.0 - 77.0 %) 84.6 H Lymph % (Auto) (14.0 - 32.0 %) 6.7 L Candler % (Auto) (4.8 - 9.0 %) 8.1 Eos % (Auto) (0.3 - 3.7 %) 0.0 L Baso % (Auto) (0.0 - 2.0 %) 0.2 Neut # (Auto) (2.0 - 7.6 x10 3/uL) 10.12 H Lymph # (Auto) (1.0 - 3.8 x10 3/uL) 0.80 L Candler # (Auto) (0.1 - 0.8 x10 3/uL) 0.97 H Eos # (Auto) (0.0 - 0.2 x10 3/uL) 0.00 Baso # (Auto) (0.0 - 0.2 x10 3/uL) 0.02 Abs Immat Gran (auto) (0.00 - 0.03 0.05 H x10 3/uL) Add Manual Diff NO Immature Gran % (0.0 - 2.0 %) 0.4 Nucleated RBC % (0 - 0 %) 0.0 Nucleated RBCs # (Man) (0.0 - 0.1 x10 3/uL) 0.0 0 Serology SARS-CoV-2 Ag (Rapid) (Negative) Negative 05/30 05/30 05/30 0330 0230 0230 Chemistry Sodium (134 - 147 mEq/L) 135 Potassium (3.4 - 5.0 mEq/L) 3.9 Chloride (100 - 108 mEq/L) 104 Carbon Dioxide (21 - 33 mEq/l) 23 Anion Gap (0 - 20) 12 BUN (7 - 18 mg/dL) < 5 L Creatinine (0.6 - 1.3 mg/dL) 0.6 Glomerular Filtr Rate (110 - 120) 147.4 H Glucose (70 - 110 mg/dL) 88 Uric Acid (2.6 - 7.2 mg/dL) 4.6 Calcium (8.0 - 10.5 mg/dL) 9.2 Total Bilirubin (0.0 - 1.0 mg/dL) 0.40 AST (15 - 37 IUnit/L) 21 ALT (30 - 65 IUnit/L) 11 L Total Alk Phosphatase (20 - 125 IUnit/L) 183 H Lactate Dehydrogenase (84 - 246 IUnits/L) 161 Total Protein (6.4 - 8.2 g/dL) 7.0 Albumin (3.4 - 5.0 g/dL) 3.40 Hematology WBC (4.5 - 11.0 x10 3/uL) 10.5 RBC (3.54 - 5.02 x10 6/uL) 4.11 Hgb (11.0 - 15.0 g/dL) 11.3 Hct (33.0 - 45.0 %) 35.4 MCV (81.0 - 99.0 fL) 86.1 MCH (27.0 - 33.0 pg) 27.5 MCHC (33.0 - 37.0 g/dL) 31.9 L RDW (11.5 - 14.5 %) 14.6 H Plt Count (150 - 400 x10 3/uL) 197 MPV (7.0 - 9.0 fL) 11.2 H Neut % (Auto) (56.0 - 77.0 %) 83.2 H Lymph % (Auto) (14.0 - 32.0 %) 9.6 L Candler % (Auto) (4.8 - 9.0 %) 6.4 Eos % (Auto) (0.3 - 3.7 %) 0.1 L Baso % (Auto) (0.0 - 2.0 %) 0.2 Neut # (Auto) (2.0 - 7.6 x10 3/uL) 8.73 H Lymph # (Auto) (1.0 - 3.8 x10 3/uL) 1.01 Candler # (Auto) (0.1 - 0.8 x10 3/uL) 0.67 Eos # (Auto) (0.0 - 0.2 x10 3/uL) 0.01 Baso # (Auto) (0.0 - 0.2 x10 3/uL) 0.02 Abs Immat Gran (auto) (0.00 - 0.03 x10 3/uL) 0. 05 H Add Manual Diff NO Immature Gran % (0.0 - 2.0 %) 0.5 Nucleated RBC % (0 - 0 %) 0.0 Nucleated RBCs # (Man) (0.0 - 0.1 x10 3/uL) 0.0 0 Serology RPR (NONREACTIVE) NONREACTIVE Hep Bs Antigen (NonReactive INDEX) NON REACTIVE HIV 1 2 Antibody Screen (Nonreactive) Nonreacti ve Urines Urine Color (YEL/STRAW) YELLOW Urine Appearance (CLEAR) CLEAR Urine pH (5.0 - 7.0) 6.0 Ur Specific [place] (1.005 - 1.030) 1.017 Urine Protein (NEGATIVE) 1+ H Urine Glucose (UA) (NEGATIVE) NEGATIVE Urine Ketones (NEGATIVE) 1+ H Urine Blood (NEGATIVE) 1+ H Urine Nitrite (NEGATIVE) NEGATIVE Urine Bilirubin (NEGATIVE) NEGATIVE Urine Urobilinogen (0.2 - 1.0 mg/dL) 0.2 Ur Leukocyte Esterase (NEGATIVE) NEGATIVE Urine RBC (0 - 3 RBC/HPF) 4-10 Urine WBC (0 - 3 WBC/HPF) 4-9 H Ur Squamous Epith Cells (NONE SEEN /HPF) 0-5 Urine Bacteria (NONE SEEN /HPF) NONE SEEN Urine Mucus (NONE SEEN /LPF) TRACE Ur Random Creatinine (mg/dL) 145.7 U Random Total Protein (mg/dL) 40 Protein/Creatinin Ratio 0.27 Laboratory Tests: 05/31 0450 Chemistry Sodium (134 - 147 mEq/L) 137 Potassium (3.4 - 5.0 mEq/L) 3.9 Chloride (100 - 108 mEq/L) 106 Carbon Dioxide (21 - 33 mEq/l) 24 Anion Gap (0 - 20) 11 BUN (7 - 18 mg/dL) < 5 L Creatinine (0.6 - 1.3 mg/dL) 0.7 Glomerular Filtr Rate (110 - 120) 123.4 H Glucose (70 - 110 mg/dL) 72 Calcium (8.0 - 10.5 mg/dL) 8.9 Total Bilirubin (0.0 - 1.0 mg/dL) 0.50 AST (15 - 37 IUnit/L) 31 ALT (30 - 65 IUnit/L) 17 L Total Alk Phosphatase (20 - 125 IUnit/L) 137 H Total Protein (6.4 - 8.2 g/dL) 5.8 L Albumin (3.4 - 5.0 g/dL) 2.70 L Hematology WBC (4.5 - 11.0 x10 3/uL) 12.0 H RBC (3.54 - 5.02 x10 6/uL) 3.72 Hgb (11.0 - 15.0 g/dL) 10.3 L Hct (33.0 - 45.0 %) 31.8 L MCV (81.0 - 99.0 fL) 85.5 MCH (27.0 - 33.0 pg) 27.7 MCHC (33.0 - 37.0 g/dL) 32.4 L RDW (11.5 - 14.5 %) 14.7 H Plt Count (150 - 400 x10 3/uL) 192 MPV (7.0 - 9.0 fL) 11.5 H Neut % (Auto) (56.0 - 77.0 %) 84.6 H Lymph % (Auto) (14.0 - 32.0 %) 6.7 L Candler % (Auto) (4.8 - 9.0 %) 8.1 Eos % (Auto) (0.3 - 3.7 %) 0.0 L Baso % (Auto) (0.0 - 2.0 %) 0.2 Neut # (Auto) (2.0 - 7.6 x10 3/uL) 10.12 H Lymph # (Auto) (1.0 - 3.8 x10 3/uL) 0.80 L Candler # (Auto) (0.1 - 0.8 x10 3/uL) 0.97 H Eos # (Auto) (0.0 - 0.2 x10 3/uL) 0.00 Baso # (Auto) (0.0 - 0.2 x10 3/uL) 0.02 Abs Immat Gran (auto) (0.00 - 0.03 x10 3/uL) 0. 05 H Add Manual Diff NO Immature Gran % (0.0 - 2.0 %) 0.4 Nucleated RBC % (0 - 0 %) 0.0 Nucleated RBCs # (Man) (0.0 - 0.1 x10 3/uL) 0.0 0 Results: labs reviewed, vitl signs stable Diagnosis, Assessment Plan Diagnosis, Assessment Plan Problem List/A P: 1. care following delivery Assessment: nml progress, breast feed ing w/o diff Plan: routine care Plan discussed with: patient, nurse at 1401 RPT #:[id number] END OF REPORT 2021-05-30 20:13:00-00:00 [id number] [place], [place] [address] PATIENT NAME: RUBIN JOEL ADMIT DATE: 05/30/21 ACCOUNT NO: [id number] ROOM NO: .341 AGE: 25 REPORT TYPE: OPERATIVE REPORT SEX: F ADMITTING PHYSICIAN:Leeanne Roman MD ATTENDING PHYSICIAN:Leeanne Roman MD OPERATION DATE: 05/30/2021 PREOPERATIVE DIAGNOSES: 1. Failure to descend. 2. The patient requested section. POSTOPERATIVE DIAGNOSES: 1. Failure to descend. 2. The patient requested section. PROCEDURE PERFORMED: Primary low transverse cesa rean section by way of Pfannenstiel incision. SURGEON: Nata Herrera MD DIRECTOR OF VALUATION: Amaury Harkins, surgical lenardmarquise russell. ANESTHESIOLOGIST: Dr. Fall. ANESTHESIA: Combined spinal epidural. FINDINGS: Male infant, cephalic presentation, RO A. Time of delivery 1842. Apgars 9 and 9, weight 4130 grams, 9 pounds 10 o unces. INDICATIONS FOR SECTION: Failure to tanya cend in labor. The patient progressed to complete. She pushed for several h ours with her primary CRANK HAND, Dr. Roman, and then asked to rest. After resting for 45 minutes to an hour, she then declined/refused to con tinue to push. She requested an operative delivery. The risks of an operative delivery versus a vag inal delivery were discussed with the patient and her par tner and she still stated that she wished to proceed with a delivery. DESCRIPTION OF PROCEDURE: The patient was taken to the operating room, where epidural anesthesia was not found to be adequate ; therefore, the spinal was replaced on the table. She w as prepped and draped in the normal sterile fashion in the dorsal supine position with a leftward ti lt. A Pfannenstiel skin incision was made with a scalpel, carried throug h to underlying layer of the fascia with the Bovie. The fascia was incised in the midline and the incision was extended laterally with the Chavez scissors. T he superior aspect of the fascial incision was grasped with Rober clamps, elevated, and the underlying rectus muscles dissected off bluntly. Attention was then turned to the inferior aspect of this incision, whi ch in a similar fashion was grasped, tented up with Rober clamps, and the rectus muscles dissected off. The rectus muscles were PATIENT NAME: RUBIN JOEL 181 in the midline. Th e peritoneum was identified, tented up, and entered sharply with the Metzenbaum scissors. The perito britney incision was extended superiorly and inferiorly with good visualizatio n of the bladder. The bladder blade was then inserted and the vesicouterine peritoneum was identified, grasped with pickups, and entered sharply with the Metze nbaum scissors. This incision was extended laterally and the bladder f lap was created digitally. The bladder blade was then reinserted and the lower uterine segment was incised in a transverse fashion with the scalpel. The uterine incision was extended laterally with the bandage scissors. The bladder blade was removed and the 's head was delivered atraumatically. The nose and mouth were suctioned and the cord was clamped and cut. The infant was handed off to the waiting pediatricians and the cord gases were se nt. The placenta was removed manually. The uterus was exteriorized and cleared of all c lots and debris. The uterine incision was repaired with 1 -0 Monocryl in a running-locked fashion and a second layer of the same suture was used to obtain exce llent hemostasis. The bladder flap was repaired, the uterus was returned to th e abdomen. The gutters were cleared of all clots and debris. Interceed was p laced over the incision in a T-shaped fashion. The peritoneum was closed usin g 3-0 Vicryl. The fascia was reapproximated with 0 Vicryl in a runnin g fashion. The subcuticular tissue was closed with 2-0 plain. The skin was closed with a subcuticular suture of 4-0 Vicryl on a Agus needle. A pressure bandage was applied after Steri-Strips were placed. The patient tolerated the p rocedure well. Sponge, lap, and needle counts were correct x2. She was given 2 g of Cef tin prior to the procedure. The patient was taken to the recovery room in st able condition. Dictated By: Nata Herrera MD WT: OP:MICHAEL/ERICK/LASHAY Conf#: [id number]/DID#: [id number] Authenticated by Nata Herrera MD On 05/20 11:50:52 AM at 1150 PATIENT NAME: RUBIN JOEL 181 2021-05-30 19:27:00-00:00 [facility] ([facility] Brief Op Note REPORT#:[id number] REPORT STATUS: Signed DATE:05/30/21 TIME: 1926 PATIENT: RUBIN JOEL UNIT #: [id number] ROOM/BED: [place] [address] : 95 AGE: 25 SEX: F ATTEND: Issac Roman MD ADM AUTHOR: Nata Estrada MD * ALL edits or amendments must be made on the [employer]/computer document * See Addendum Op/Inv Proc Note - Brief Pre-procedure diagnosis: Failure to descend Post-procedure diagnosis: same as pre procedure dx Procedures performed: Primary low transverse cesearean section Primary Surgeon: Nata Crowley MD Instructor Private(s): Amaury Gracia SA Anesthesiologist: Dr Fall Anesthesia: combined spinal/epi Findings: Male infant cephalic presentation SHIRLEY Time of delivery: 1841 : 99 Weight: 4130 gm 9# 2 oz Complications: none Estimated blood loss in ml's: QBL: 600 ml Specimens removed/altered: placenta, cord blood Drain(s): Quispe Catheter Placed Urine output: blood tinged in patient room 375 cc ml Disposition: return to floor at 1938 Addendum 1: 05/30/212002 by Nata Estrada MD Indication for c/s: failure to descend in labor. Pt progressed to complete. She pushed fo r several hours with Dr Roman and then asked to rest. After resting she then declined/refused to continue to push. She requested an operative deliv susan. The risks of an operative delivery vs a vaginal delivery were discussed and she still stated that she wanted to proceed with the cesearean section. at 2012 Addendum 2: 05/30/21 2014 by Nata Estrada MD Dictation # [id number] at 2013 RPT #:[id number] END OF REPORT 2021-05-30 16:48:00-00:00 [facility] ([facility] OB Intrapart Prog Note REPORT#:[id number] REPORT STATUS: Signed DATE:05/30/21 TIME: 1648 PATIENT: RUBIN JOEL UNIT #: [id number] ROOM/BED: [place] [address] : 95 AGE: 25 SEX: F ATTEND: Issac Roman MD ADM AUTHOR: Nata Estrada MD * ALL edits or amendments must be made on the [employer]/computer document * Subjective Subjective Admission EGA: Weeks: 39 Days: 5 Current EGA: Current EGA(wks): 39 Current EGA(days): 5 Patient reports: Patient reports: Yes: contractions. No: abdominal pain, vaginal bleeding, leaking fluid. Nursing reports: Nursing reports: Yes: contractions. Objective Nursing Documentation Review Nursing data: The data set between the solid lines has been im ported from nursing documentation. Any exceptions have been noted be low under Provider comments. __ ROM date: 05/30/21 ROM time: 0100 __ Provider comments on imported nursing data: [] General VS: Last Documented: Result Date Time Pulse Ox 100 05/30 1558 Pulse 114 05/30 1558 B/P Mean 108.0 05/30 1555 B/P 137/90 05/30 1555 Temp 98.3 05/30 1455 Resp 18 05/30 1455 Vital Signs Date Temp Pulse Resp B/P B/P Mean Pulse Ox FiO2 05/30 97.4-98.9 44-149 18-20 115-176/58-108 83. 0-130.0 60-100 PATIENT WEIGHT: Weight (lb): 187 Weight (oz): Weight (kg): 84.822 Objective Cervical/ exam: Dilatation (cm): 10 - complete Effacement (%): 100 station: 0 presentation: cephalic Uterine activity: Monitor: toco Frequency (description): regular Frequency (minutes): 2 Duration (seconds): 60 Intensity: moderate Resting tone: relaxed Tachysystole: No FHR Evaluation Baby A: Baby A baseline: 125 bpm Baby A variability: moderate 6-25 bpm Baby A accelerations: 15 X 15 Baby A decelerations: variable, prolonged (afte r epidural) Baby A FHR category: category 1 Diagnosis, Assessment Plan Assessment: normal FHR pattern Additional notes: PT woke up from her rest and told her nu rse "I do not want to push anymore - I don't think I can do it and I want a c/section". I asked If she understood what that meant and explained the process and answered questions. she and her partner wish to proceed with the cesearean delivery . Plan discussed with: patient, spouse/partner at 1653 RPT #:[id number] END OF REPORT 2021-05-30 14:21:00-00:00 [facility] ([facility]) OB Intrapart Prog Note REPORT#:[id number] REPORT STATUS: Signed DATE:05/30/21 TIME: 1421 PATIENT: RUBIN JOEL UNIT #: [id number] ROOM/BED: [place] [address] : 95 AGE: 25 SEX: F ATTEND: Issac Roman MD ADM AUTHOR: Leeanne Roman MD * ALL edits or amendments must be made on the el [employer]/computer document * Subjective Subjective Admission EGA: Weeks: 39 Days: 5 Current EGA: Current EGA(wks): 39 Current EGA(days): 5 Patient reports: Patient reports: Yes: normal movement. No: headache, scoto guzmán, fever, chills, comfortable with epidural. Objective Nursing Documentation Review Nursing data: The data set between the solid lines has been im ported from nursing documentation. Any exceptions have been noted be low under Provider comments. __ ROM date: 05/30/21 ROM time: 0100 __ Provider comments on imported nursing data: [] General VS: Vital Signs: Date Time Temp Pulse Resp B/P B/P Pulse O2 O2 F low FiO2 Mean Ox Delivery Rate 05/30 1358 124 100 05/30 1356 90.0 05/30 1356 123 128/64 05/30 1355 114 88 05/30 1353 111 100 05/30 1348 129 100 05/30 1343 119 100 05/30 1342 93.0 05/30 1342 122 144/65 05/30 1338 122 84 05/30 1336 121 90 05/30 1333 142 94 05/30 1328 117 88 05/30 1326 83.0 05/30 1326 136 125/58 05/30 1323 116 100 05/30 1322 122 92 05/30 1318 116 100 05/30 1313 115 100 05/30 1310 92.0 05/30 1310 114 120/75 05/30 1308 129 99 05/30 1307 124 90 05/30 1303 134 100 05/30 1258 123 100 05/30 1254 146 92 05/30 1253 131 100 05/30 1248 135 100 05/30 1247 135 86 05/30 1243 135 100 05/30 1240 112.0 05/30 1240 120 136/97 05/30 1238 142 96 05/30 1233 119 99 05/30 1231 115 92 05/30 1229 88.0 05/30 1229 113 129/61 05/30 1228 133 100 05/30 1223 114 82 05/30 1222 84.0 05/30 1222 115 126/58 05/30 1218 107 77 05/30 1213 105 100 05/30 1211 103.0 05/30 1211 107 133/82 88 05/30 1208 104 100 05/30 1203 110 100 05/30 1201 96.0 05/30 1201 106 124/77 05/30 1158 107 100 05/30 1153 111 100 05/30 1150 98.0 05/30 1150 109 128/77 05/30 1148 110 92 05/30 1143 111 96 05/30 1142 117 89 05/30 1140 92.0 05/30 1140 109 121/75 05/30 1138 108 100 05/30 1136 109 91 05/30 1133 109 100 05/30 1132 99.0 05/30 1132 108 125/80 05/30 1129 114 92 05/30 1127 108 100 05/30 1122 103 100 05/30 1120 99.0 05/30 1120 104 132/77 05/30 1117 112 93 05/30 1112 105 100 05/30 1110 110.0 05/30 1110 109 143/86 05/30 1108 100.0 05/30 1108 108 132/79 91 05/30 1107 109 97 05/30 1102 109 100 / 1057 117 99 / 1053 110.0 05/30 1053 106 154/82 / 1052 108 99 / 1047 110 100 / 1044 118.0 05/30 1044 108 169/86 05/30 1042 115 100 /12 1037 106 100 / 1033 110 91 05/30 1032 114 95 / 1027 115 100 /12 1024 116.0 / 1024 117 161/86 05/30 1022 112 100 05/30 1017 126 96 05/30 1012 113 100 / 1008 113.0 05/30 1008 112 153/84 05/30 1006 109 99 05/30 1001 111 100 05/30 0956 114 100 / 0954 125.0 05/30 0954 107 159/103 / 0951 110 100 / 0946 107 99 /12 0944 123.0 / 0944 109 157/102 / 0941 107 100 / 0936 110 100 /12 0931 119 98 /12 0926 114 100 /12 0924 98.4 20 /12 0924 118.0 /12 0924 113 154/97 05/30 0921 118 99 /12 0919 118 93 /12 0916 111 100 /12 0911 114 100 /12 0909 117.0 /12 0909 114 156/91 /12 0906 120 100 /12 0901 109 100 /12 0856 113 100 /12 0854 109.0 /12 0854 112 142/87 /12 0851 117 100 /12 0846 108 99 /12 0841 108 100 11/12 0840 130.0 11/12 0840 100 167/108 /12 0836 102 99 11/12 0831 116 100 11/12 0826 101 100 /12 0824 130.0 /12 0824 105 176/99 /12 0821 103 99 /12 0817 110 90 /12 0816 101 100 11/12 0811 102 100 11/12 0810 110.0 11/12 0810 100 145/85 11/12 0806 114 100 11/12 0801 113 100 11/12 0756 110 99 11/12 0753 104.0 11/12 0753 110 135/84 11/12 0751 106 100 11/12 0746 107 100 11/12 0741 102 100 11/12 0738 110.0 11/12 0738 103 141/92 11/12 0736 106 99 11/12 0731 100 100 11/12 0726 103 99 11/12 0724 107.0 11/12 0724 105 140/88 11/12 0721 110 99 11/12 0716 109 100 11/12 0711 110 100 11/12 0709 104.0 11/12 0709 98.0 104 141/81 11/12 0706 109 99 11/12 0701 110 99 11/12 0656 108 100 11/12 0653 104.0 11/12 0653 107 134/86 11/12 0652 107 91 11/12 0651 111 100 11/12 0646 114 100 11/12 0641 118 86 11/12 0638 105.0 11/12 0638 105 137/83 11/12 0636 112 91 11/12 0631 109 99 11/12 0626 113 100 11/12 0624 96.0 11/12 0624 112 123/80 11/12 0621 109 100 11/12 0616 108 99 11/12 0611 107 99 11/12 0606 111 99 11/12 0605 86.0 11/12 0605 116 115/66 11/12 0601 115 100 11/12 0559 95.0 11/12 0559 113 124/77 11/12 0556 110 100 11/12 0554 95.0 11/12 0554 116 129/74 11/12 0551 132 100 11/12 0546 126 100 11/12 0545 83.0 11/12 0545 118 127/58 11/12 0541 107.0 11/12 0541 134 174/83 100 11/12 0538 94.0 11/12 0538 112 157/65 11/12 0536 115 100 11/12 0531 104 100 11/12 0526 97 100 11/12 0524 121.0 11/12 0524 98 142/106 11/12 0521 116 100 11/12 0516 107 100 11/12 0511 110 100 11/12 0506 113 100 11/12 0501 105 100 05/30 0424 126.0 05/30 0424 97.4 97 18 165/99 99 05/30 0258 110.0 05/30 0258 88 148/84 05/30 0242 104.0 05/30 0242 92 137/82 05/30 022 98 99 05/30 022 109.0 05/30 226 98.9 93 20 141/86 05/30 022 101 100 Objective Cervical/ exam: Dilatation (cm): 7 Effacement (%): 100 station: 0 presentation: cephalic Pelvis exam: Clinically adequate for this fetus: unsure Uterine activity: Monitor: toco Frequency (description): regular Frequency (minutes): 2 Duration (seconds): 60 Intensity: moderate Resting tone: relaxed Tachysystole: No Current oxytocin: Indication: Pt refused Pitocin FHR Evaluation Baby A: Baby A baseline: 125 bpm Baby A variability: moderate 6-25 bpm Baby A accelerations: 15 X 15 Baby A decelerations: variable, prolonged (afte r epidural) Baby A FHR category: category 1 Result Findings/Data: Laboratory Tests: 05/30 05/30 05/30 0335 0330 0230 Chemistry Sodium (134 - 147 mEq/L) 135 Potassium (3.4 - 5.0 mEq/L) 3.9 Chloride (100 - 108 mEq/L) 104 Carbon Dioxide (21 - 33 mEq/l) 23 Anion Gap (0 - 20) 12 BUN (7 - 18 mg/dL) < 5 L Creatinine (0.6 - 1.3 mg/dL) 0.6 Glomerular Filtr Rate (110 - 120) 147.4 H Glucose (70 - 110 mg/dL) 88 Uric Acid (2.6 - 7.2 mg/dL) 4.6 Calcium (8.0 - 10.5 mg/dL) 9.2 Total Bilirubin (0.0 - 1.0 mg/dL) 0.40 AST (15 - 37 IUnit/L) 21 ALT (30 - 65 IUnit/L) 11 L Total Alk Phosphatase (20 - 125 IUnit/L) 183 H Lactate Dehydrogenase (84 - 246 IUnits/L) 161 Total Protein (6.4 - 8.2 g/dL) 7.0 Albumin (3.4 - 5.0 g/dL) 3.40 Hematology WBC (4.5 - 11.0 x10 3/uL) 10.5 RBC (3.54 - 5.02 x10 6/uL) 4.11 Hgb (11.0 - 15.0 g/dL) 11.3 Hct (33.0 - 45.0 %) 35.4 MCV (81.0 - 99.0 fL) 86.1 MCH (27.0 - 33.0 pg) 27.5 MCHC (33.0 - 37.0 g/dL) 31.9 L RDW (11.5 - 14.5 %) 14.6 H Plt Count (150 - 400 x10 3/uL) 197 MPV (7.0 - 9.0 fL) 11.2 H Neut % (Auto) (56.0 - 77.0 %) 83.2 H Lymph % (Auto) (14.0 - 32.0 %) 9.6 L Candler % (Auto) (4.8 - 9.0 %) 6.4 Eos % (Auto) (0.3 - 3.7 %) 0.1 L Baso % (Auto) (0.0 - 2.0 %) 0.2 Neut # (Auto) (2.0 - 7.6 x10 3/uL) 8.73 H Lymph # (Auto) (1.0 - 3.8 x10 3/uL) 1.01 Candler # (Auto) (0.1 - 0.8 x10 3/uL) 0.67 Eos # (Auto) (0.0 - 0.2 x10 3/uL) 0.01 Baso # (Auto) (0.0 - 0.2 x10 3/uL) 0.02 Abs Immat Gran (auto) (0.00 - 0.03 x10 3/uL) 0. 05 H Add Manual Diff NO Immature Gran % (0.0 - 2.0 %) 0.5 Nucleated RBC % (0 - 0 %) 0.0 Nucleated RBCs # (Man) (0.0 - 0.1 x10 3/uL) 0.0 0 Serology RPR (NONREACTIVE) NONREACTIVE Hep Bs Antigen (NonReactive INDEX) NON REACTIVE HIV 1 2 Antibody Screen (Nonreactive) Nonreacti ve SARS-CoV-2 Ag (Rapid) (Negative) Negative Urines Ur Random Creatinine (mg/dL) 145.7 U Random Total Protein (mg/dL) 40 Protein/Creatinin Ratio 0.27 05/30 0230 Urines Urine Color (YEL/STRAW) YELLOW Urine Appearance (CLEAR) CLEAR Urine pH (5.0 - 7.0) 6.0 Ur Specific [place] (1.005 - 1.030) 1.017 Urine Protein (NEGATIVE) 1+ H Urine Glucose (UA) (NEGATIVE) NEGATIVE Urine Ketones (NEGATIVE) 1+ H Urine Blood (NEGATIVE) 1+ H Urine Nitrite (NEGATIVE) NEGATIVE Urine Bilirubin (NEGATIVE) NEGATIVE Urine Urobilinogen (0.2 - 1.0 mg/dL) 0.2 Ur Leukocyte Esterase (NEGATIVE) NEGATIVE Urine RBC (0 - 3 RBC/HPF) 4-10 Urine WBC (0 - 3 WBC/HPF) 4-9 H Ur Squamous Epith Cells (NONE SEEN /HPF) 0-5 Urine Bacteria (NONE SEEN /HPF) NONE SEEN Urine Mucus (NONE SEEN /LPF) TRACE Diagnosis, Assessment Plan Assessment: slow progress of labor, arrest of de scent Plan: Pt C/C/+1. pt has been pushing for 1.5 sin r with very little dscent. contraction moderate ad 2-3 minute apart. Pt refuses to allow Pitocin infusion. Will allow pt to continue to pushfor now. Plan discussed with: patient, spouse/partner, Martín sadler Electronically Signed by Leeanne Roman MD on at 1437 RPT #:[id number] END OF REPORT 2021-05-30 08:15:00-00:00 [facility] ([facility]) OB Admission / H P REPORT#:[id number] REPORT STATUS: Signed DATE:05/30/21 TIME: 814 PATIENT: RUBIN JOEL UNIT #: [id number] ROOM/BED: [place] [address] : 95 AGE: 25 SEX: F ATTEND: Issac Roman MD ADM AUTHOR: Leeanne Roman MD * ALL edits or amendments must be made on the el [employer]/computer document * OB History Nursing Documentation Review Nursing data: The data set between the solid lines has been im ported from nursing documentation. Any exceptions have been noted be low under Provider comments. Current data Steroids prior to arrival: ROM date: 05/30/21 ROM time: 0100 EDC date: 06/01/21 Gestational age (labor triage): Post hemorrhage risk score: Low Risk for Hemorrhage. Prior history : 1 Para: 0 Term: : Abortions spontaneous: Abortions induced: Living children: Ectopic: Stillbirths: Live births: deaths: Number of previous C/S: Reported maternal labs/data Blood type: Rh type: Rubella: Hepatitis B: HIV exposure test: Unknown VDRL: Group B beta strep: Negative Rho(D) immune globulin this preg: Monitor mode - UA: Feeding preference: Provider comments on imported nursing data: [] Chief complaint: suspected ruptured memb, uterin e contractions HPI: Pt is a 25 y/o at 39 weeks with uncomplica renate PNC since 8 weeks. pt present with C/O SROM and contractions. Pt denie s vag bleeding or ssx of Toxemia history: : 1 Term: 0 : 0 Abortus: 0 Living children: 0 Complications (prev preg): none Previous : none Current : Admission EGA (weeks) 39 Admission EGA (days) 5 EDC based on: LMP, ultrasound, 1st trimester Steroids prior to delivery: no, delivery on arr ival Labs: Blood type: B Rh: positive Rubella: immune Hepatitis B: negative HIV: negative STD: negative Syphilis: currently negative GBS: negative Procedures: ultrasound, genetic testing Genetic testing: chromosomal disorder Past History Past Surgical History: Reports: Tonsillectomy. Smoking status: Smoking status for patients 13 years old or old er: Never Smoker Other Social History Local resident Allergies: Coded Allergies: No Known Allergies (04/18/21) Review of Systems All systems rev neg: except as marked Objective General VS: Vital Signs: Date Time Temp Pulse Resp B/P B/P Pulse O2 O2 F low FiO2 Mean Ox Delivery Rate 05/30 0756 110 99 11/ 0753 104.0 / 0753 110 135/84 / 0751 106 100 / 0746 107 100 / 0741 102 100 / 0738 110.0 11/ 0738 103 141/92 / 0736 106 99 / 0731 100 100 / 0726 103 99 / 0724 107.0 05/30 0724 105 140/88 / 0721 110 99 / 0716 109 100 11/ 0711 110 100 /12 0709 104.0 11/12 0709 98.0 104 141/81 / 0706 109 99 / 0701 110 99 / 0656 108 100 / 0653 104.0 / 0653 107 134/86 / 0652 107 91 / 0651 111 100 / 0646 114 100 / 0641 118 86 / 0638 105.0 / 0638 105 137/83 05/30 0636 112 91 / 0631 109 99 11/ 0626 113 100 11/12 0624 96.0 11/ 0624 112 123/80 /12 0621 109 100 / 0616 108 99 /12 0611 107 99 /12 0606 111 99 / 0605 86.0 11/ 0605 116 115/66 11/12 0601 115 100 / 0559 95.0 / 0559 113 124/77 / 0556 110 100 / 0554 95.0 / 0554 116 129/74 / 0551 132 100 / 0546 126 100 05/30 0545 83.0 05/30 0545 118 127/58 05/30 0541 107.0 05/30 0541 134 174/83 100 05/30 0538 94.0 05/30 0538 112 157/65 05/30 0536 115 100 05/30 0531 104 100 05/30 0526 97 100 05/30 0524 121.0 05/30 0524 98 142/106 05/30 0521 116 100 05/30 0516 107 100 05/30 0511 110 100 05/30 0506 113 100 05/30 0501 105 100 05/30 0424 126.0 05/30 0424 97.4 97 18 165/99 99 05/30 0258 110.0 05/30 0258 88 148/84 05/30 0242 104.0 05/30 0242 92 137/82 05/30 0227 98 99 05/30 0226 109.0 05/30 0226 98.9 93 20 141/86 05/30 0222 101 100 Physical Exam HEENT: normocephalic w/o injury, pupils equal, p upils reactive to light, no apparent hearing diff, no lesions of mouth, no l esions of throat, no nasal septum deviation, no scleral icterus Cardiac: regular rate and rhythm, no clinically sig murmur Lungs: clear to auscultation, unlabored breathin g Breasts: deferred Neuro: Exam: alert, oriented x3, normal speech DTR's (lower extr): normal 1-2+, no clonus Abdomen: gravid, soft, no abnormal tenderness, n o guarding, no rebound tenderness, normoactive bowel sounds Musculoskeletal: normal inspection Genitourinary: quispe Uterine activity: Monitor: toco Frequency (description): regular Frequency (minutes): 2 Duration (seconds): 60 Intensity: moderate Resting tone: relaxed Tachysystole: No Pelvic exam: Pelvis clinically adequate: yes, inlet appears appropriate, pubic bone config appropr, no midpelvic contraction Vulvar lesions: none, no evidence herpetic les, no evidence of other STD Vagina: normal, non-septated, w/o apparent lesi ons Uterus size in weeks: 38 Exam: soft, non-tender, approp size for gest ag e Cervical/ exam: Dilatation (cm): 7 Effacement (%): 100 Est wt (gms): 3200 Suspected macrosomia: No Suspected > 5000 grams: No station: 0 presentation: cephalic Membranes: Membranes: SROM ROM date: 05/30/21 ROM time: 0100 Amniotic fluid: clear Odor: none Amount: moderate Lower extremities: Edema: 1+ pitting Leonardo's sign: negative Calf tenderness: negative Baby A: Baby A baseline: 140 bpm Baby A variability: moderate 6-25 bpm Baby A accelerations: 15 X 15 Baby A decelerations: variable, prolonged (afte r epidural) Baby A FHR category: category 1 Result Findings/Data: Laboratory Tests: 05/30 05/30 05/30 0335 0330 0230 Chemistry Sodium (134 - 147 mEq/L) 135 Potassium (3.4 - 5.0 mEq/L) 3.9 Chloride (100 - 108 mEq/L) 104 Carbon Dioxide (21 - 33 mEq/l) 23 Anion Gap (0 - 20) 12 BUN (7 - 18 mg/dL) < 5 L Creatinine (0.6 - 1.3 mg/dL) 0.6 Glomerular Filtr Rate (110 - 120) 147.4 H Glucose (70 - 110 mg/dL) 88 Uric Acid (2.6 - 7.2 mg/dL) 4.6 Calcium (8.0 - 10.5 mg/dL) 9.2 Total Bilirubin (0.0 - 1.0 mg/dL) 0.40 AST (15 - 37 IUnit/L) 21 ALT (30 - 65 IUnit/L) 11 L Total Alk Phosphatase (20 - 125 IUnit/L) 183 H Lactate Dehydrogenase (84 - 246 IUnits/L) 161 Total Protein (6.4 - 8.2 g/dL) 7.0 Albumin (3.4 - 5.0 g/dL) 3.40 Hematology WBC (4.5 - 11.0 x10 3/uL) 10.5 RBC (3.54 - 5.02 x10 6/uL) 4.11 Hgb (11.0 - 15.0 g/dL) 11.3 Hct (33.0 - 45.0 %) 35.4 MCV (81.0 - 99.0 fL) 86.1 MCH (27.0 - 33.0 pg) 27.5 MCHC (33.0 - 37.0 g/dL) 31.9 L RDW (11.5 - 14.5 %) 14.6 H Plt Count (150 - 400 x10 3/uL) 197 MPV (7.0 - 9.0 fL) 11.2 H Neut % (Auto) (56.0 - 77.0 %) 83.2 H Lymph % (Auto) (14.0 - 32.0 %) 9.6 L Candler % (Auto) (4.8 - 9.0 %) 6.4 Eos % (Auto) (0.3 - 3.7 %) 0.1 L Baso % (Auto) (0.0 - 2.0 %) 0.2 Neut # (Auto) (2.0 - 7.6 x10 3/uL) 8.73 H Lymph # (Auto) (1.0 - 3.8 x10 3/uL) 1.01 [place] # (Auto) (0.1 - 0.8 x10 3/uL) 0.67 Eos # (Auto) (0.0 - 0.2 x10 3/uL) 0.01 Baso # (Auto) (0.0 - 0.2 x10 3/uL) 0.02 Abs Immat Gran (auto) (0.00 - 0.03 x10 3/uL) 0. 05 H Add Manual Diff NO Immature Gran % (0.0 - 2.0 %) 0.5 Nucleated RBC % (0 - 0 %) 0.0 Nucleated RBCs # (Man) (0.0 - 0.1 x10 3/uL) 0.0 0 Serology Hep Bs Antigen (NonReactive INDEX) NON REACTIVE HIV 1 2 Antibody Screen (Nonreactive) Nonreacti ve SARS-CoV-2 Ag (Rapid) (Negative) Negative Urines Ur Random Creatinine (mg/dL) 145.7 05/30 0230 Urines Urine Color (YEL/STRAW) YELLOW Urine Appearance (CLEAR) CLEAR Urine pH (5.0 - 7.0) 6.0 Ur Specific [place] (1.005 - 1.030) 1.017 Urine Protein (NEGATIVE) 1+ H Urine Glucose (UA) (NEGATIVE) NEGATIVE Urine Ketones (NEGATIVE) 1+ H Urine Blood (NEGATIVE) 1+ H Urine Nitrite (NEGATIVE) NEGATIVE Urine Bilirubin (NEGATIVE) NEGATIVE Urine Urobilinogen (0.2 - 1.0 mg/dL) 0.2 Ur Leukocyte Esterase (NEGATIVE) NEGATIVE Urine RBC (0 - 3 RBC/HPF) 4-10 Urine WBC (0 - 3 WBC/HPF) 4-9 H Ur Squamous Epith Cells (NONE SEEN /HPF) 0-5 Urine Bacteria (NONE SEEN /HPF) NONE SEEN Urine Mucus (NONE SEEN /LPF) TRACE Diagnosis, Assessment Plan Diagnosis, Assessment Plan Assessment/Impression: spont.active labo r>39 wks, normal FHR pattern, reactive NST Plan: admit to inpatient, delivery, IVF, s urveillance Plan discussed with: patient, spouse/partner, Martín sadler Electronically Signed by Leeanne Roman MD on at 0835 RPT #:[id number] END OF REPORT 2021-05-30 03:07:00-00:00 [facility] ([facility] OB Medical Screening Exam REPORT#:[id number] REPORT STATUS: Signed DATE:05/30/21 TIME: 0307 PATIENT: RUBIN JOEL UNIT #: [id number] ROOM/BED: : 95 AGE: 25 SEX: F ATTEND: Issac Roman MD ADM AUTHOR: Maylin Franks DO * ALL edits or amendments must be made on the el [employer]/computer document * Medical Screening Exam Nursing Documentation Review Nursing data: The data set between the solid lines has been im ported from nursing documentation. Any exceptions have been noted be low under Provider comments. : 1 Para: 0 Term: : Abortions spontaneous: Abortions induced: Living children: EDC: 06/01/21 Gestational age (labor triage): MARINA monitor fetus and uterus: Part A The following exist: Medical screening part A score: Medical screening part A recommendation: Part B Headaches: Vomiting: Visual disturbances: Epigastric pain: Proteinuria: Edema: Medical screening part B score: Medical screening part B recommendation: Part C Vaginal exam deferred: Other reason MSE vaginal exam deferred: Dilation: Cervical effacement: Station: Presentation: Contraction pattern: Contraction strength: Membranes: heart rate: Duration of previous labor(s): Medical screening part C score: Medical screening part C recommendation: RN MSE signature: Provider comments on imported nursing data: [] Provider Attestation Attestation: The QMP MSE reviewed. Comments: PT triaged at 0300. at 0307 RPT #:[id number] END OF REPORT 2021-05-30 03:07:00-00:00 [facility] ([facility]) [place] Evaluation Note REPORT#:[id number] REPORT STATUS: Signed DATE:05/30/21 TIME: 0307 PATIENT: RUBIN JOEL UNIT #: [id number] ROOM/BED: : 95 AGE: 25 SEX: F ATTEND: Issac Roman MD ADM AUTHOR: Maylin Franks DO * ALL edits or amendments must be made on the el [employer]/computer document * MARINA History Nursing Documentation Review Nursing data: The data set between the solid lines has been im ported from nursing documentation. Any exceptions have been noted be low under Provider comments. Current data Steroids prior to arrival: ROM date: ROM time: EDC date: 06/01/21 Gestational age (labor triage): Post hemorrhage risk score: Prior history : 1 Para: 0 Term: : Abortions spontaneous: Abortions induced: Living children: Ectopic: Stillbirths: Live births: deaths: Number of previous C/S: Reported maternal labs/data Blood type: Rh type: Rubella: Hepatitis B: HIV exposure test: Unknown VDRL: Group B beta strep: Negative Rho(D) immune globulin this preg: Monitor mode - UA: Feeding preference: Provider comments on imported nursing data: [] Chief complaint: uterine contractions, suspected ruptured memb HPI: 25 y/o EDC 06/01 at 39 w 5 day c/o contractions and leaking of fluid since 0100, clear fluid. She rates her pain 9/10. Othe rwise good mvm. history: : 1 Term: 0 Current : EDC: 06/01/21 EGA (weeks/days): 39 weeks Labs: Blood type: unknown Past medical history: asthma Past surgical history: tonsils/adenoids Social history: employed, single, no alcohol use , no tobacco use, no drug use Medications: Current Hospital Medications: Takes PNV Cardiovascular Drugs Sig/Frank Start time Last Medication Dose Route Stop Time Status Admin Hydralazine HCl 10 MG ASDIR PRN 05/30 315 UNV (APRESOLINE) IV 06/29 314 Labetalol HCl 20 MG ASDIR PRN 05/30 315 UNV (LABETALOL HCL) IV 06/29 314 Labetalol HCl 40 MG ASDIR PRN 05/30 315 UNV (LABETALOL HCL) IV 06/29 314 Labetalol HCl 80 MG ASDIR PRN 05/30 315 UNV (LABETALOL HCL) IV 06/29 314 Oxytocics Sig/Frank Start time Last Medication Dose Route Stop Time Status Admin Oxytocin 500 ML ASDIR 05/30 315 UNV (OXYTOCIN 30 UNITS/ IV 06/29 314 NS 500ML) Allergies Coded Allergies: No Known Allergies (04/18/21) Review of Systems Constitutional: Denies: fever. ENT: Denies: sore throat. Respiratory: Denies: non productive cough. GI: Denies: nausea, vomiting. : Reports: . Neuro: Denies: headache. Objective General VS: Last Documented: Result Date Time B/P Mean 110.0 05/30 0258 B/P 148/84 05/30 0258 Pulse 88 05/30 025 Pulse Ox 99 05/30 227 Temp 98.9 05/30 022 Resp 20 05/30 226 Vital Signs Date Temp Pulse Resp B/P B/P Mean Pulse Ox FiO2 05/30 98.9 88-101 20 137-148/82-86 104.0-110.0 99-100 PATIENT WEIGHT: Weight (lb): 187 Weight (oz): Weight (kg): 84.822 Notes: 141/86 137/82 Physical Exam HEENT: normocephalic w/o injury, no scleral icte ignacia Lungs: unlabored breathing Neuro: Exam: alert, oriented x3, normal speech Abdomen: gravid, soft, no abnormal tenderness, n o guarding, no rebound tenderness Genitourinary: no quispe Uterine activity: Monitor: toco Frequency (description): irregular Intensity: moderate Pelvic exam: Pelvis clinically adequate: I was in another ia stephie RN did pelvic exam. Noted grossly ruptured. Cervical/ exam: Dilatation (cm): 2 Effacement (%): 90 station: - 3 FHR evaluation: Baseline: 130 bpm Variability: moderate 6-25 bpm Accelerations: 15 X 15 Decelerations: variable FHR category: category 1 Membranes: Membranes: SROM ROM date: 05/30/21 ROM time: 0100 Amniotic fluid: clear Diagnosis, Assessment Plan Diagnosis, Assessment Plan Free Text A P: 25 y/o p0 at 39 w 5 day here with SROM, labor Admit pt as d/w Dr. Moore on all for Dr. Roman. She will presume care. at 0312 RPT #:[id number] END OF REPORT 2021-04-18 19:24:00-00:00 [facility] ([facility]) [place] Evaluation Note REPORT#:[id number] REPORT STATUS: Signed DATE:04/18/21 TIME: 1923 PATIENT: RUBIN JOEL UNIT #: [id number] ROOM/BED: [place] [address] : 95 AGE: 25 SEX: F ATTEND: Jennifer Bourgeois MD ADM AUTHOR: Corinne Bourgeois MD * ALL edits or amendments must be made on the [employer]/computer document * See Addendum MARINA History Chief complaint: decreased movement HPI: Pt is a 25 y/o G1 @ 33w5d wh o presents reporting decreased movement since earlier today. since being here reports +FM. no ctx, no vb. no lof/rom. PNC with Dr. Cross history: : 1 Current : EDC: 06/01/21 EGA (weeks/days): 33w5 Past medical history: asthma (childhood) Past surgical history: tonsils/adenoids Social history: no alcohol u se, no tobacco use, no drug use, prior to preg + THC user, and + social etoh Family history Family history was reviewed; no changes noted. Medications: Home Medications: Medication Dose/Rte/Freq Days Qty Entered Last Max Daily Dose Reviewed PNV WITH 1 CAP PO DAILY 04/18/21 CA/IRON/FA/DHA 1907 (PRENATE ESSENTIAL) Strength: 28 MG IRON-1 MG-300 MG CAP Allergies Coded Allergies: No Known Allergies (04/18/21) Review of Systems All systems rev neg: except as marked Objective General VS: First Documented: Result Date Time Pulse Ox 99 04/18 1903 Pulse 111 04/18 1903 B/P 128/79 04/18 1906 Temp 98.4 04/18 1906 Resp 16 04/18 1906 B/P Mean 97.0 04/18 1906 Physical Exam HEENT: normocephalic w/o injury, pupils equal Lungs: unlabored breathing Neuro: Exam: alert, oriented x3, normal speech Abdomen: gravid, soft, no abnormal tenderness, n o guarding, no rebound tenderness Uterine activity: Monitor: toco Frequency (description): none Pelvic exam: Pelvis clinically adequate: deferred, no lower abd concerns at this time FHR evaluation: Baseline: 130 bpm Variability: moderate 6-25 bpm Accelerations: 15 X 15 Decelerations: none FHR category: category 1 Lower extremities: Edema: none Calf tenderness: negative Results Findings/Data: FINDINGS: Gestation: Single live intrauterine i dentified currently in cephalic position with heart tones of 146 bpm. Anterior grade 1 placenta is seen. Amniotic fluid index measures 15.1 cm. Systolic/diastolic ratio measures 3.2. BIOPHYSICAL PROFILE: Breathin/2 Gross body movements: 2/2 tone: 2/2 Qualitative amniotic fluid: 2/2 Biophysical Profile Score: 8/8 IMPRESSION: Biophysical profile score of 8/8. 201 2 IMPRESSION: Biophysical profile score of 8/8. Impression By: [email or web address] - Elder Solorzano M.D. Diagnosis, Assessment Plan Diagnosis, Assessment Plan Free Text A P: A: 25 y/o G1 @ 33w5 with decreased movemen t P1. NST reactive 60 mins rec orded, reviewed by me, reactive, cat 1 tracing 130s + accels, normal variability. no decels 2. BPP ordered Plan discussed with: patient, nurse at 202 Addendum 1: 04/18/212025 by Corinne Bourgeois MD BPP reviewed and 02/23, 04/27 with NST LINCOLN 15.1 cm wnl reviewed with pt d/c home kick counts ptl precautions at 2027 RPT #:[id number] END OF REPORT 2021-04-18 19:23:00-00:00 [facility] ([facility]) OB Medical Screening Exam REPORT#:[id number] REPORT STATUS: Signed DATE:04/18/21 TIME: 1922 PATIENT: RUBIN JOEL UNIT #: [id number] ROOM/BED: : 95 AGE: 25 SEX: F ATTEND: Jennifer Bourgeois MD ADM AUTHOR: Corinne Bourgeois MD * ALL edits or amendments must be made on the SupportLocal/TAPP document * Medical Screening Exam Provider Attestation Comments: 25 y/o G1 @ 33w+ with decreased FM. now reports +FM. +FHTS obtained at 1923 RPT #:[id number] END OF REPORT 2020-11-27 22:45:00-00:00 [facility] ([facility]) EMERGENCY PROVIDER REPORT REPORT#:[id number] REPORT STATUS: Signed DATE:11/27/20 TIME: 2244 PATIENT: RUBIN JOEL UNIT #: [id number] ROOM/BED: AGE: 25 SEX: F PCP PHYS: Leeanne Roman MD SERVICE AUTHOR: Eran Guzman [employer] * ALL edits or amendments must be made on the SupportLocal/TAPP document * Eran Guzman 11/27/205: HPI-Preg Under 20 Weeks Free Text HPI Notes Free Text HPI Notes 25-year-old female presents complaint of dark brown discharge from her vagina. States she is 13 weeks pregn ant and did have vaginal bleeding earlier on in the . Also complains of a single bout of vo miting. Denies fever, chills, body aches. Also denies any recent sexua l activity. Reports that her CRANK HAND is Dr. Roman. General Initial Greet Date/Time 11/27/202142 Presentation Chief Complaint Vaginal discharge Review of Systems ROS Statements All systems rev neg except as marked. Free Text ROS Notes Free Text ROS Notes Review of Systems Constitutional Denies: Chills, Fatigue, Fever. Ears/Nose/Throat Denies: Nasal congestion, Throat pain. Respiratory Denies: Cough, non-productive, Shortness of brennan th. Cardiovascular Denies: Chest pain, Palpitations. GI Denies: Abdominal pain, Diarrhea. Reports: Nause a, Vomiting. Reports: at 13 weeks, dark brown disch arge from the vagina Musculoskeletal Denies: Back pain. Skin Denies: Erythema, Rash. Past Medical History - Adult Stated Complaint "DARK BROWN/BLACK DC" 13 WKS DE EGNANT, VOMIT X 1 Allergies Coded Allergies: No Known Allergies (09/19/19) Home Medications Active Scripts CEPHALEXIN (KEFLEX) 500 MG PO Q12H CEPHALEXIN (KEFLEX) 500 MG PO Q12H #14 CAPS Prov: 10/15/20 ONDanestron (ZOFRAN ODT) 8 MG PO Q8H PRN NAUSEA/ VOMITING ONDanestron (ZOFRAN ODT) 8 MG PO Q8H PRN NAUSEA /VOMITING #20 TABS Prov: 10/15/20 METOCLOPRAMIDE (REGLAN) 10 MG PO QID PRN PRN GEE SEA/VOMITING METOCLOPRAMIDE (REGLAN) 10 MG PO QID PRN PRN NA USEA/VOMITING #20 TABS Prov: 10/15/20 Past Surgical History: Reports: Tonsillectomy. Other Social History Local resident Physical Exam Vital Signs Vital Signs First Documented: Result Date Time Pulse Ox 100 11/27 2246 B/P 130/88 11/27 2246 B/P Mean 102 11/27 2246 O2 Delivery Room air 11/27 2246 Temp 36.9 11/27 2246 Pulse 99 11/277 Resp 16 11/27 2246 Last Documented: Result Date Time Pulse Ox 100 11/27 2246 B/P 130/88 11/27 2246 B/P Mean 102 11/27 2246 O2 Delivery Room air 11/27 2246 Temp 36.9 11/27 224 Pulse 99 11/27 2247 Resp 16 11/27 2246 Review of Vital Signs Reviewed Free Text PE Notes Free Text PE Notes Vital Signs Review of Vital Signs Reviewed Physical Exam General/Const General/Const Awake, Alert, No acute distress, Well appearing MS Head Head Atraumatic, Normocephalic Eyes Eyes Atraumatic, PERRL Ears/Nose/Throat Ears/Nose/Throat Atraumatic, Airway patent, Muc ous membranes moist MS Neck Neck Atraumatic, Supple Resp/Chest Respiratory/Chest Atraumatic, No respiratory di stress Cardiovascular Cardiovascular Heart rate NL, Regular rhythm, H eart sounds NL Abdomen/GI Abdomen/GI Atraumatic, Soft, Non-tender MS Back Back Atraumatic, Inspection NL Skin Skin Atraumatic, Color NL, No rash Genitourinary General Exam deferred Neurologic Neurologic Oriented X3, Speech NL Psychiatric Psychiatric Affect NL, Mood NL Interpretation Diagnostics Lab Results Interpretation Results Laboratory Tests: 11/27 2304 Urines Urine Color (YEL/STRAW) YELLOW Urine Appearance (CLEAR) CLEAR Urine pH (5.0 - 7.0) 7.0 Ur Specific [place] (1.005 - 1.030) 1.014 Urine Protein (NEGATIVE) NEGATIVE Urine Glucose (UA) (NEGATIVE) 1+ H Urine Ketones (NEGATIVE) NEGATIVE Urine Blood (NEGATIVE) NEGATIVE Urine Nitrite (NEGATIVE) NEGATIVE Urine Bilirubin (NEGATIVE) NEGATIVE Urine Urobilinogen (0.2 - 1.0 mg/dL) 0.2 Ur Leukocyte Esterase (NEGATIVE) NEGATIVE Urine RBC (0 - 3 RBC/HPF) 0-3 Urine WBC (0 - 3 WBC/HPF) 0-3 Ur Squamous Epith Cells (NONE SEEN /HPF) 0-5 Urine Bacteria (NONE SEEN /HPF) TRACE Urine Mucus (NONE SEEN /LPF) TRACE Microbiology: Date/Time Procedure - Status Source Growth 11/27 2304 Urine Culture - RECD URINE Recent Impressions: ULTRASOUND - US PREG AFTER TRI 11/27 2234 Report Impression - Status: SIGNED Entered: 11/27/20200 IMPRESSION: Normal single live intrauterine at 14 weeks 3 days. Limited evaluation of all structures relat ed to early gestational age without definite abnormality. Mildly limited visualization of the cervix measu ring 3.4 cm in length containing mild ill-defined fluid in the endocer vical canal. GENERAL OBSERVATIONS REGARDING ULTRASO UND: 1. A normal or negative sonogram report should n ot delay further investigation of a clinically suspicious or abno rmal . 2. position or overlap of parts may prevent complete evaluation of the fetus. 3. Congenital and developmental abnormalities ar e not always sonographically visualized. 4. Repeat sonograms may be necessary depending o n the clinical development during . SL: TPAINTER-H Impression By: [email or web address] - Clif Baker M.D. ULTRASOUND - DUP AB/PEL/SC/LTD 11/28 2235 Report Impression - Status: SIGNED Entered: 11/27/2020 8683 IMPRESSION: Normal single live intrauterine at 14 weeks 3 days. Limited evaluation of all structures relat ed to early gestational age without definite abnormality. Mildly limited visualization of the cervix measu ring 3.4 cm in length containing mild ill-defined fluid in the endocer vical canal. GENERAL OBSERVATIONS REGARDING ULTRASO UND: 1. A normal or negative sonogram report should n ot delay further investigation of a clinically suspicious or abno rmal . 2. position or overlap of parts may prevent complete evaluation of the fetus. 3. Congenital and developmental abnormalities ar e not always sonographically visualized. 4. Repeat sonograms may be necessary depending o n the clinical development during . SL: TPAINTER-H Impression By: [email or web address] - Clif Baker M.D. Re-Evaluation MDM Re-Evaluation/Progress Re-Evaluation/Progress Text/Dict Note Ultrasound shows viable IUP. Will discharge to home with follow-up with [facility]. ED Course Medication(s) Ordered Medication(s) Ordered: Gastrointestinal Drugs Sig/Frank Start time Last Medication Dose Route Stop Time Status Admin Ondansetron HCl 4 MG X1ED STA 11/27 2142 DC PO 11/28 2143 0005 Patient Discharge Departure Vital Signs/Condition Vital Signs First Documented: Result Date Time Pulse Ox 100 11/27 2246 B/P 130/88 11/27 224 B/P Mean 102 11/27 2246 O2 Delivery Room air 11/27 2246 Temp 36.9 11/27 2246 Pulse 99 11/27 2246 Resp 16 11/27 2246 Last Documented: Result Date Time Pulse Ox 100 11/27 2246 B/P 130/88 11/27 2246 B/P Mean 102 11/27 2246 O2 Delivery Room air 11/27 2246 Temp 36.9 11/27 2246 Pulse 99 11/27 2246 Resp 11/27 All vital signs available at the time of this en try have been reviewed. Condition Improved Clinical Impression Clinical Impression Primary Impression: Vaginal bleeding before 22 w eeks gestation Disposition Decision Discharge )( Discharged to Home Yes )( Time 2347 )( Date 11/27/20 Discharge/Care Plan Counseled Regarding Diagnosi s, Lab results, Imaging studies, Need for follow-up, When to return to ED (Auto) Prescriptions Current Visit Scripts ONDANSETRON ODT (ZOFRAN ODT) 4 MG PO Q6H PRN PRN NAUSEA/VOMITING ONDANSETRON ODT (ZOFRAN ODT) 4 MG PO Q6H PRN DE N NAUSEA/VOMITING #15 TABS Patient Instructions Bleeding During Early Pregn oj Referrals Leeanne Roman MD (PCP/Family): 2-3 Days Discharge Note I have spoken with the patie nt and/or caregivers. I have explained the patient's condition, diagnoses and jovany atment plan based on the information available to me at this time. I have answered the patient's and/ or caregiver's questions and addressed any concerns. The patient and/or careg karen have as good an understanding of the patient 's diagnosis, condition and treatment plan as can be expected at this point. The vital signs have bee n stable. The patient's condition is stable and appr opriate for discharge from the emergency department. The patient will pursue further outpatient evalu ation with the primary care physician or other designated or consulting phys ician as outlined in the discharge instructions. The patient and/or caregivers are agreeable to this plan of care and follow-up instructions have been exp lained in detail. The patient and/or caregivers have received these instructio ns in written format and have expressed an understanding of the discharge inst ructions. The patient and/or caregivers are aware that any significant change in condition or worsening of symptoms should prompt an immediate return to [facility] or the closest emergency department or a call to 911. Kenneth Lorenzana 11/28/20 0448: Patient Discharge Departure Supervising Physician Note MidLv Saw Pt Alone I have reviewed the PA/[employer]ER's note and plan of car e. I was available for consultation as needed at al l times during the patient's visit in the emergency department. I agree with the clinical impression , plan and disposition. at 0449 RPT #:[id number] END OF REPORT 2020-11-27 22:45:00-00:00 [facility] ([facility]) EMERGENCY PROVIDER REPORT REPORT#:[id number] REPORT STATUS: Signed DATE:11/27/20 TIME: 2244 PATIENT: RUBIN JOEL UNIT #: [id number] ROOM/BED: AGE: 25 SEX: F PCP PHYS: Leeanne Roman MD SERVICE AUTHOR: Eran Guzman [employer] * ALL edits or amendments must be made on the SupportLocal/computer document * Eran Guzman 11/27/202244: HPI-Preg Under 20 Weeks Free Text HPI Notes Free Text HPI Notes 25-year-old female presents complaint of dark brown discharge from her vagina. States she is 13 weeks pregn ant and did have vaginal bleeding earlier on in the . Also complains of a single bout of vo miting. Denies fever, chills, body aches. Also denies any recent sexua l activity. Reports that her CRANK HAND is Dr. Roman. General Initial Greet Date/Time 11/27/202142 Presentation Chief Complaint Vaginal discharge Review of Systems ROS Statements All systems rev neg except as marked. Free Text ROS Notes Free Text ROS Notes Review of Systems Constitutional Denies: Chills, Fatigue, Fever. Ears/Nose/Throat Denies: Nasal congestion, Throat pain. Respiratory Denies: Cough, non-productive, Shortness of brennan th. Cardiovascular Denies: Chest pain, Palpitations. GI Denies: Abdominal pain, Diarrhea. Reports: Nause a, Vomiting. Reports: at 13 weeks, dark brown disch arge from the vagina Musculoskeletal Denies: Back pain. Skin Denies: Erythema, Rash. Past Medical History - Adult Stated Complaint "DARK BROWN/BLACK DC" 13 WKS DE EGNANT, VOMIT X 1 Allergies Coded Allergies: No Known Allergies (09/19/19) Home Medications Active Scripts CEPHALEXIN (KEFLEX) 500 MG PO Q12H CEPHALEXIN (KEFLEX) 500 MG PO Q12H #14 CAPS Prov: 10/15/20 ONDanestron (ZOFRAN ODT) 8 MG PO Q8H PRN NAUSEA/ VOMITING ONDanestron (ZOFRAN ODT) 8 MG PO Q8H PRN NAUSE A/VOMITING #20 TABS Prov: 10/15/20 METOCLOPRAMIDE (REGLAN) 10 MG PO QID PRN PRN GEE SEA/VOMITING METOCLOPRAMIDE (REGLAN) 10 MG PO QID PRN PRN NA USEA/VOMITING #20 TABS Prov: 10/15/20 Past Surgical History: Reports: Tonsillectomy. Other Social History Local resident Physical Exam Vital Signs Vital Signs First Documented: Result Date Time Pulse Ox 100 11/27 2246 B/P 130/88 11/27 2246 B/P Mean 102 11/27 2246 O2 Delivery Room air 11/27 2246 Temp 36.9 11/27 2246 Pulse 99 11/27 2246 Resp 11/27 Last Documented: Result Date Time Pulse Ox 100 11/27 2246 B/P 130/88 11/27 2246 B/P Mean 102 11/27 2246 O2 Delivery Room air 11/27 2246 Temp 36.9 11/27 2246 Pulse 99 11/27 2246 Resp 11/27 Review of Vital Signs Reviewed Free Text PE Notes Free Text PE Notes Vital Signs Review of Vital Signs Reviewed Physical Exam General/Const General/Const Awake, Alert, No acute distress, Well appearing MS Head Head Atraumatic, Normocephalic Eyes Eyes Atraumatic, PERRL Ears/Nose/Throat Ears/Nose/Throat Atraumatic, Airway patent, Muc ous membranes moist MS Neck Neck Atraumatic, Supple Resp/Chest Respiratory/Chest Atraumatic, No respiratory di stress Cardiovascular Cardiovascular Heart rate NL, Regular rhythm, H eart sounds NL Abdomen/GI Abdomen/GI Atraumatic, Soft, Non-tender MS Back Back Atraumatic, Inspection NL Skin Skin Atraumatic, Color NL, No rash Genitourinary General Exam deferred Neurologic Neurologic Oriented X3, Speech NL Psychiatric Psychiatric Affect NL, Mood NL Interpretation Diagnostics Lab Results Interpretation Results Laboratory Tests: 11/275 Urines Urine Color (YEL/STRAW) YELLOW Urine Appearance (CLEAR) CLEAR Urine pH (5.0 - 7.0) 7.0 Ur Specific [place] (1.005 - 1.030) 1.014 Urine Protein (NEGATIVE) NEGATIVE Urine Glucose (UA) (NEGATIVE) 1+ H Urine Ketones (NEGATIVE) NEGATIVE Urine Blood (NEGATIVE) NEGATIVE Urine Nitrite (NEGATIVE) NEGATIVE Urine Bilirubin (NEGATIVE) NEGATIVE Urine Urobilinogen (0.2 - 1.0 mg/dL) 0.2 Ur Leukocyte Esterase (NEGATIVE) NEGATIVE Urine RBC (0 - 3 RBC/HPF) 0-3 Urine WBC (0 - 3 WBC/HPF) 0-3 Ur Squamous Epith Cells (NONE SEEN /HPF) 0-5 Urine Bacteria (NONE SEEN /HPF) TRACE Urine Mucus (NONE SEEN /LPF) TRACE Microbiology: Date/Time Procedure - Status Source Growth 11/27 2304 Urine Culture - RECD URINE Recent Impressions: ULTRASOUND - US PREG AFTER 1ST TRI 11/27 2234 Report Impression - Status: SIGNED Entered: 11/27/20202308 IMPRESSION: Normal single live intrauterine at 14 weeks 3 days. Limited evaluation of all structures relat ed to early gestational age without definite abnormality. Mildly limited visualization of the cervix measu ring 3.4 cm in length containing mild ill-defined fluid in the endocer vical canal. GENERAL OBSERVATIONS REGARDING ULTRASO UND: 1. A normal or negative sonogram report should n ot delay further investigation of a clinically suspicious or abno rmal . 2. position or overlap of parts may prevent complete evaluation of the fetus. 3. Congenital and developmental abnormalities ar e not always sonographically visualized. 4. Repeat sonograms may be necessary depending o n the clinical development during . SL: TPAINTER-H Impression By: Janeen Baker M.D. ULTRASOUND - DUP AB/PEL/SC/LTD 11/28 2235 Report Impression - Status: SIGNED Entered: 11/27/20202308 IMPRESSION: Normal single live intrauterine at 14 weeks 3 days. Limited evaluation of all structures relat ed to early gestational age without definite abnormality. Mildly limited visualization of the cervix measu ring 3.4 cm in length containing mild ill-defined fluid in the endocer vical canal. GENERAL OBSERVATIONS REGARDING ULTRASO UND: 1. A normal or negative sonogram report should n ot delay further investigation of a clinically suspicious or abno rmal . 2. position or overlap of parts may prevent complete evaluation of the fetus. 3. Congenital and developmental abnormalities ar e not always sonographically visualized. 4. Repeat sonograms may be necessary depending o n the clinical development during . SL: TPAINTER-H Impression By: Jnaeen Baker M.D. Re-Evaluation MDM Re-Evaluation/Progress Re-Evaluation/Progress Text/Dict Note Ultrasound shows viable IUP. Will discharge to home with follow-up with [facility]. ED Course Medication(s) Ordered Medication(s) Ordered: Gastrointestinal Drugs Sig/Frank Start time Last Medication Dose Route Stop Time Status Admin Ondansetron HCl 4 MG X1ED STA 11/27 2142 DC PO 11/28 2143 0005 Patient Discharge Departure Vital Signs/Condition Vital Signs First Documented: Result Date Time Pulse Ox 100 11/27 2246 B/P 130/88 11/27 2246 B/P Mean 102 11/277 O2 Delivery Room air 11/27 2246 Temp 36.9 11/27 2246 Pulse 99 11/27 2247 Resp 16 11/27 2246 Last Documented: Result Date Time Pulse Ox 100 11/27 2246 B/P 130/88 11/27 2246 B/P Mean 102 11/27 2246 O2 Delivery Room air 11/27 2246 Temp 36.9 11/277 Pulse 99 11/27 2246 Resp 16 11/27 2246 All vital signs available at the time of this en try have been reviewed. Condition Improved Clinical Impression Clinical Impression Primary Impression: Vaginal bleeding before 22 w eeks gestation Disposition Decision Discharge )( Discharged to Home Yes )( Time 2346 )( Date 11/27/20 Discharge/Care Plan Counseled Regarding Diagnosi s, Lab results, Imaging studies, Need for follow-up, When to return to ED (Auto) Prescriptions Current Visit Scripts ONDANSETRON ODT (ZOFRAN ODT) 4 MG PO Q6H PRN PRN NAUSEA/VOMITING ONDANSETRON ODT (ZOFRAN ODT) 4 MG PO Q6H PRN DE N NAUSEA/VOMITING #15 TABS Patient Instructions Bleeding During Early Pregn oj Referrals Leeanne Roman MD (PCP/Family): 2-3 Days Discharge Note I have spoken with the patie nt and/or caregivers. I have explained the patient's condition, diagnoses and jovany atment plan based on the information available to me at this time. I have answered the patient's and/ or caregiver's questions and addressed any concerns. The patient and/or careg karen have as good an understanding of the patient 's diagnosis, condition and treatment plan as can be expected at this point. The vital signs have bee n stable. The patient's condition is stable and appr opriate for discharge from the emergency department. The patient will pursue further outpatient evalu ation with the primary care physician or other designated or consulting phys ician as outlined in the discharge instructions. The patient and/or caregivers are agreeable to this plan of care and follow-up instructions have been exp lained in detail. The patient and/or caregivers have received these instructio ns in written format and have expressed an understanding of the discharge inst ructions. The patient and/or caregivers are aware that any significant change in condition or worsening of symptoms should prompt an immediate return to [facility] or the closest emergency department or a call to 911. Kenneth Lorenzana 11/28/20 0448: Patient Discharge Departure Supervising Physician Note MidLv Saw Pt Alone I have reviewed the PA/[employer]ER's note and plan of car e. I was available for consultation as needed at al l times during the patient's visit in the emergency department. I agree with the clinical impression , plan and disposition. at 0449 Electronically Signed by Eran Guzman NP on at 0531 RPT #:[id number] END OF REPORT 2020-10-14 23:31:00-00:00 [facility] ([facility]) EMERGENCY PROVIDER REPORT REPORT#:[id number] REPORT STATUS: Signed DATE:10/14/20 TIME: 2330 PATIENT: RUBIN JOEL UNIT #: [id number] ROOM/BED: AGE: 25 SEX: F PCP PHYS: Leeanne Roman MD SERVICE AUTHOR: Eran Guzman NP * ALL edits or amendments must be made on the el [employer]/computer document * HPI-Preg Under 20 Weeks Free Text HPI Notes Free Text HPI Notes 25-year-old G1, P0 7 weeks gestation presents wi complaint of right lower quadrant abdominal pain with associated nausea a nd vomiting. States that she has not been seen by an OB/G YN yet and has not had a confirmatory hCG performed but does have an appointment to see Dr. Roman. States that today she was unable to keep even fluids down. Has not been given any thing for the nausea and vomiting. Denies any severe past medical histor y. Denies vaginal bleeding currently. General Initial Greet Date/Time 10/14/202251 Presentation Chief Complaint Pelvic pain, , Nausea an d vomiting Review of Systems ROS Statements All systems rev neg except as marked. Free Text ROS Notes Free Text ROS Notes Review of Systems Constitutional Denies: Chills, Fatigue, Fever. Ears/Nose/Throat Denies: Nasal congestion, Throat pain. Respiratory Denies: Cough, non-productive, Shortness of brennan th. Cardiovascular Denies: Chest pain, Palpitations. GI Denies: Abdominal pain, Diarrhea. Reports: Nause a, Vomiting. Reports: Right pelvic pain, Musculoskeletal Denies: Back pain. Skin Denies: Erythema, Rash. Past Medical History - Adult Stated Complaint 7 WKS , VOMITING, RLQ P AIN, HEADACHE Allergies Coded Allergies: No Known Allergies (09/19/19) Home Medications Reported Medications No Known Home Medications Calculated Suicide Risk (nurs) No risk Past Surgical History: Reports: Tonsillectomy. Smoking status: Smoking status for patients 13 years old or old er: Never Smoker Other Social History Local resident Physical Exam Vital Signs Vital Signs First Documented: Result Date Time Pulse Ox 98 10/14 2312 B/P 162/99 10/14 2312 B/P Mean 120 10/14 2312 Temp 36.7 10/14 2312 Pulse 94 10/14 2312 Resp 16 10/14 2312 Last Documented: Result Date Time Pulse Ox 98 10/14 2312 B/P 162/99 10/14 2312 B/P Mean 120 10/14 2312 Temp 36.7 10/14 2312 Pulse 94 10/14 2312 Resp 16 10/14 2312 Review of Vital Signs Reviewed Free Text PE Notes Free Text PE Notes Vital Signs Review of Vital Signs Reviewed Physical Exam General/Const General/Const Awake, Alert, No acute distress, Well appearing MS Head Head Atraumatic, Normocephalic Eyes Eyes Atraumatic, PERRL Ears/Nose/Throat Ears/Nose/Throat Atraumatic, Airway patent, Muc ous membranes moist MS Neck Neck Atraumatic, Supple Resp/Chest Respiratory/Chest Atraumatic, No respiratory d istress Cardiovascular Cardiovascular Heart rate NL, Regular rhythm, H eart sounds NL Abdomen/GI Abdomen/GI Atraumatic, Soft, right lower quadra nt tenderness that is at the belt line the patient was examined while sitting in a chair MS Back Back Atraumatic, Inspection NL no CVA tendernes s Skin Skin Atraumatic, Color NL, No rash Genitourinary General Exam deferred Neurologic Neurologic Oriented X3, Speech NL Psychiatric Psychiatric Affect NL, Mood NL Interpretation Diagnostics Lab Results Interpretation Results Laboratory Tests 10/14/202329: [Embedded Image Not Available] Laboratory Tests: 10/14 2329 Chemistry Sodium (134 - 147 mEq/L) 137 Potassium (3.4 - 5.0 mEq/L) 3.7 Chloride (100 - 108 mEq/L) 102 Carbon Dioxide (21 - 33 mEq/l) 27 Anion Gap (0 - 20) 12 BUN (7 - 18 mg/dL) < 5 L Creatinine (0.6 - 1.3 mg/dL) 0.7 Glomerular Filtr Rate (110 - 120) 123.4 H Glucose (70 - 110 mg/dL) 96 Calcium (8.0 - 10.5 mg/dL) 9.6 Total Bilirubin (0.0 - 1.0 mg/dL) 0.40 Direct Bilirubin (0.0 - 0.30 MG/DL) 0.10 Indirect Bilirubin (MG/DL) 0.30 AST (15 - 37 IUnit/L) 13 L ALT (30 - 65 IUnit/L) 7 L Total Alk Phosphatase (20 - 125 IUnit/L) 36 Total Protein (6.4 - 8.2 g/dL) 7.5 Albumin (3.4 - 5.0 g/dL) 4.60 Lipase (13 - 57 U/L) 35 Hematology WBC (4.5 - 11.0 x10 3/uL) 7.1 RBC (3.54 - 5.02 x10 6/uL) 5.01 Hgb (11.0 - 15.0 g/dL) 14.0 Hct (33.0 - 45.0 %) 42.8 MCV (81.0 - 99.0 fL) 85.4 MCH (27.0 - 33.0 pg) 27.9 MCHC (33.0 - 37.0 g/dL) 32.7 L RDW (11.5 - 14.5 %) 12.9 Plt Count (150 - 400 x10 3/uL) 264 MPV (7.0 - 9.0 fL) 9.5 H Neut % (Auto) (56.0 - 77.0 %) 73.7 Lymph % (Auto) (14.0 - 32.0 %) 20.5 [place] % (Auto) (4.8 - 9.0 %) 4.5 L Eos % (Auto) (0.3 - 3.7 %) 0.7 Baso % (Auto) (0.0 - 2.0 %) 0.3 Neut # (Auto) (2.0 - 7.6 x10 3/uL) 5.25 Lymph # (Auto) (1.0 - 3.8 x10 3/uL) 1.46 [place]ler # (Auto) (0.1 - 0.8 x10 3/uL) 0.32 Eos # (Auto) (0.0 - 0.2 x10 3/uL) 0.05 Baso # (Auto) (0.0 - 0.2 x10 3/uL) 0.02 Abs Immat Gran (auto) (0.00 - 0.03 x10 3/uL) 0. 02 Add Manual Diff NO Immature Gran % (0.0 - 2.0 %) 0.3 Nucleated RBC % (0 - 0 %) 0.0 Nucleated RBCs # (Man) (0.0 - 0.1 x10 3/uL) 0.0 0 Miscellaneous Maternal Serum HCG 533341.7 Urines Urine Color (YEL/STRAW) YELLOW Urine Appearance (CLEAR) CLOUDY H Urine pH (5.0 - 7.0) 8.0 H Ur Specific [place] (1.005 - 1.030) 1.013 Urine Protein (NEGATIVE) NEGATIVE Urine Glucose (UA) (NEGATIVE) NEGATIVE Urine Ketones (NEGATIVE) NEGATIVE Urine Blood (NEGATIVE) NEGATIVE Urine Nitrite (NEGATIVE) NEGATIVE Urine Bilirubin (NEGATIVE) NEGATIVE Urine Urobilinogen (0.2 - 1.0 mg/dL) 0.2 Ur Leukocyte Esterase (NEGATIVE) NEGATIVE Urine RBC (0 - 3 RBC/HPF) 0-3 Urine WBC (0 - 3 WBC/HPF) NONE SEEN Ur Squamous Epith Cells (NONE SEEN /HPF) 0-5 Urine Bacteria (NONE SEEN /HPF) 4+ H Urine Mucus (NONE SEEN /LPF) TRACE Recent Impressions: ULTRASOUND - DUP AB/PEL/SC/LTD 10/14 2776 Report Impression - Status: SIGNED Entered: 10/15/2020 0027 IMPRESSION: Single live intrauterine at 8 weeks 1 day associated with small subchorionic hemorrhage. SL: TPAINTER-H Impression By: Janeen Baker M.D. ULTRASOUND - US ABDOMEN LTD 10/14 2329 Report Impression - Status: SIGNED Entered: 10/15/2020 0014 IMPRESSION: Nonvisualized appendix preventing exclusion of a cute appendicitis. More sensitive evaluation may be obtained with M R if clinically indicated given status. SL: TPAINTER-H Impression By: Janeen Baker M.D. ULTRASOUND - US PREG 1ST TRIMTR 10/14 2329 Report Impression - Status: SIGNED Entered: 10/15/2020 0027 IMPRESSION: Single live intrauterine at 8 weeks 1 day associated with small subchorionic hemorrhage. SL: TPAINTER-H Impression By: Janeen Baker M.D. Re-Evaluation MDM Re-Evaluation/Progress Re-Evaluation/Progress Text/Dict Note Ultrasound shows viable IUP at 8 weeks with good HR and small subchorionic hemorrhage. UA with 4+ bacteria with rest of lab s otherwise nonactionable. Beta-hCG is over 180,000 whi ch is most likely cause of vomiting. Will discharge home with p.o. antiemetics and should follow-up with her [facility]. ED Course Medication(s) Ordered Medication(s) Ordered: Anti-Infective Agents Sig/Frank Start time Last Medication Dose Route Stop Time Status Admin Ceftriaxone Sodium 1,000 MG X1ED STA 10/15 003 3 DC 10/15 Sodium Chloride 10 ML IV 10/15 0035 0037 Autonomic Drugs Sig/Frank Start time Last Medication Dose Route Stop Time Status Admin Dicyclomine HCl 20 MG X1ED STA 10/14 2312 DC PO 10/143 2318 Electrolytic, Caloric, And Dannie Sig/Frank Start time Last Medication Dose Route Stop Time Status Admin Sodium Chloride 1,000 ML X1ED STA 10/14 2256 DC 10/14 IV 10/14 2355 2318 Gastrointestinal Drugs Sig/Frank Start time Last Medication Dose Route Stop Time Status Admin Ondansetron HCl 8 MG X1ED STA 10/15 2255 DC IV 10/14 225 2318 Patient Discharge Departure Vital Signs/Condition Vital Signs First Documented: Result Date Time Pulse Ox 98 10/14 2312 B/P 162/99 10/14 2312 B/P Mean 120 10/14 2312 Temp 36.7 10/14 2312 Pulse 94 10/14 2312 Resp 16 10/14 2312 Last Documented: Result Date Time Pulse Ox 98 10/14 2312 B/P 162/99 10/14 2312 B/P Mean 120 10/14 2312 Temp 36.7 10/14 2312 Pulse 94 10/14 2312 Resp 16 10/14 2312 All vital signs available at the time of this en try have been reviewed. Condition Improved Clinical Impression Clinical Impression Primary Impression: UTI (urinary tract infection ) in in first trimester Secondary Impressions: Vomiting affecting pregna ncy Disposition Decision Discharge )( Discharged to Home Yes )( Time 0046 )( Date 10/15/20 Discharge/Care Plan Counseled Regarding Diagnosi s, Lab results, Imaging studies, Prescriptions, Need for follow-up, When to return to ED (Auto) Prescriptions Current Visit Scripts CEPHALEXIN (KEFLEX) 500 MG PO Q12H CEPHALEXIN (KEFLEX) 500 MG PO Q12H #14 CAPS ONDanestron (ZOFRAN ODT) 8 MG PO Q8H PRN NAUSEA/ VOMITING ONDanestron (ZOFRAN ODT) 8 MG PO Q8H PRN NAUSEA /VOMITING #20 TABS METOCLOPRAMIDE (REGLAN) 10 MG PO QID PRN PRN GEE SEA/VOMITING METOCLOPRAMIDE (REGLAN) 10 MG PO QID PRN PRN NA USEA/VOMITING #20 TABS Patient Instructions ED Bladder Infection, Femal e (Adult), ED Hyperemesis Gravidarum Referrals Leeanne Roman MD (PCP/Family): 1-2 Days Discharge Note I have spoken with the patie nt and/or caregivers. I have explained the patient's condition, diagnoses and jovany atment plan based on the information available to me at this time. I have answered the patient's and/ or caregiver's questions and addressed any concerns. The patient and/or careg karen have as good an understanding of the patient 's diagnosis, condition and treatment plan as can be expected at this point. The vital signs have bee n stable. The patient's condition is stable and appr opriate for discharge from the emergency department. The patient will pursue further outpatient evalu ation with the primary care physician or other designated or consulting phys ician as outlined in the discharge instructions. The patient and/or caregivers are agreeable to this plan of care and follow-up instructions have been exp lained in detail. The patient and/or caregivers have received these instructio ns in written format and have expressed an understanding of the discharge inst ructions. The patient and/or caregivers are aware that any significant change in condition or worsening of symptoms should prompt an immediate return to [facility] or the closest emergency department or a call to 1. Electronically Signed by Eran Guzman NP on at 0443 RPT #:[id number] END OF REPORT 2020-10-14 23:31:00-00:00 [facility] ([facility]) EMERGENCY PROVIDER REPORT REPORT#:[id number] REPORT STATUS: Signed DATE:10/14/20 TIME: 2330 PATIENT: RUBIN JOEL UNIT #: [id number] ROOM/BED: AGE: 25 SEX: F PCP PHYS: Leeanne Roman MD SERVICE AUTHOR: Eran Guzman NP * ALL edits or amendments must be made on the Support[employer]/computer document * Eran Guzman 10/14/20 2331: HPI-Preg Under 20 Weeks Free Text HPI Notes Free Text HPI Notes 25-year-old G1, P0 7 weeks gestation presents wi complaint of right lower quadrant abdominal pain with associated nausea a nd vomiting. States that she has not been seen by an OB/G YN yet and has not had a confirmatory hCG performed but does have an appointment to see Dr. Roman. States that today she was unable to keep even fluids down. Has not been given any thing for the nausea and vomiting. Denies any severe past medical history . Denies vaginal bleeding currently. General Initial Greet Date/Time 10/14/202 Presentation Chief Complaint Pelvic pain, , Nausea an d vomiting Review of Systems ROS Statements All systems rev neg except as marked. Free Text ROS Notes Free Text ROS Notes Review of Systems Constitutional Denies: Chills, Fatigue, Fever. Ears/Nose/Throat Denies: Nasal congestion, Throat pain. Respiratory Denies: Cough, non-productive, Shortness of brennan th. Cardiovascular Denies: Chest pain, Palpitations. GI Denies: Abdominal pain, Diarrhea. Reports: Nause a, Vomiting. Reports: Right pelvic pain, Musculoskeletal Denies: Back pain. Skin Denies: Erythema, Rash. Past Medical History - Adult Stated Complaint 7 WKS , VOMITING, RLQ P AIN, HEADACHE Allergies Coded Allergies: No Known Allergies (09/19/19) Calculated Suicide Risk (nurs) No risk Past Surgical History: Reports: Tonsillectomy. Smoking status: Smoking status for patients 13 years old or old er: Never Smoker Other Social History Local resident Physical Exam Vital Signs Vital Signs First Documented: Result Date Time Pulse Ox 98 10/14 2312 B/P 162/99 10/14 2312 B/P Mean 120 10/14 2312 Temp 36.7 10/14 2312 Pulse 94 10/14 2312 Resp 16 10/14 2312 Last Documented: Result Date Time Pulse Ox 98 10/14 2312 B/P 162/99 10/14 2312 B/P Mean 120 10/14 2312 Temp 36.7 10/14 2312 Pulse 94 10/14 2312 Resp 16 10/14 2312 Review of Vital Signs Reviewed Free Text PE Notes Free Text PE Notes Vital Signs Review of Vital Signs Reviewed Physical Exam General/Const General/Const Awake, Alert, No acute distress, Well appearing MS Head Head Atraumatic, Normocephalic Eyes Eyes Atraumatic, PERRL Ears/Nose/Throat Ears/Nose/Throat Atraumatic, Airway patent, Muc ous membranes moist MS Neck Neck Atraumatic, Supple Resp/Chest Respiratory/Chest Atraumatic, No respiratory di stress Cardiovascular Cardiovascular Heart rate NL, Regular rhythm, H eart sounds NL Abdomen/GI Abdomen/GI Atraumatic, Soft, right lower quadra nt tenderness that is at the belt line the patient was examined while sitting in a chair MS Back Back Atraumatic, Inspection NL no CVA tendernes s Skin Skin Atraumatic, Color NL, No rash Genitourinary General Exam deferred Neurologic Neurologic Oriented X3, Speech NL Psychiatric Psychiatric Affect NL, Mood NL Interpretation Diagnostics Lab Results Interpretation Results Laboratory Tests 10/14/202329: [Embedded Image Not Available] Laboratory Tests: 10/14 2329 Chemistry Sodium (134 - 147 mEq/L) 137 Potassium (3.4 - 5.0 mEq/L) 3.7 Chloride (100 - 108 mEq/L) 102 Carbon Dioxide (21 - 33 mEq/l) 27 Anion Gap (0 - 20) 12 BUN (7 - 18 mg/dL) < 5 L Creatinine (0.6 - 1.3 mg/dL) 0.7 Glomerular Filtr Rate (110 - 120) 123.4 H Glucose (70 - 110 mg/dL) 96 Calcium (8.0 - 10.5 mg/dL) 9.6 Total Bilirubin (0.0 - 1.0 mg/dL) 0.40 Direct Bilirubin (0.0 - 0.30 MG/DL) 0.10 Indirect Bilirubin (MG/DL) 0.30 AST (15 - 37 IUnit/L) 13 L ALT (30 - 65 IUnit/L) 7 L Total Alk Phosphatase (20 - 125 IUnit/L) 36 Total Protein (6.4 - 8.2 g/dL) 7.5 Albumin (3.4 - 5.0 g/dL) 4.60 Lipase (13 - 57 U/L) 35 Hematology WBC (4.5 - 11.0 x10 3/uL) 7.1 RBC (3.54 - 5.02 x10 6/uL) 5.01 Hgb (11.0 - 15.0 g/dL) 14.0 Hct (33.0 - 45.0 %) 42.8 MCV (81.0 - 99.0 fL) 85.4 MCH (27.0 - 33.0 pg) 27.9 MCHC (33.0 - 37.0 g/dL) 32.7 L RDW (11.5 - 14.5 %) 12.9 Plt Count (150 - 400 x10 3/uL) 264 MPV (7.0 - 9.0 fL) 9.5 H Neut % (Auto) (56.0 - 77.0 %) 73.7 Lymph % (Auto) (14.0 - 32.0 %) 20.5 [place] % (Auto) (4.8 - 9.0 %) 4.5 L Eos % (Auto) (0.3 - 3.7 %) 0.7 Baso % (Auto) (0.0 - 2.0 %) 0.3 Neut # (Auto) (2.0 - 7.6 x10 3/uL) 5.25 Lymph # (Auto) (1.0 - 3.8 x10 3/uL) 1.46 [place] # (Auto) (0.1 - 0.8 x10 3/uL) 0.32 Eos # (Auto) (0.0 - 0.2 x10 3/uL) 0.05 Baso # (Auto) (0.0 - 0.2 x10 3/uL) 0.02 Abs Immat Gran (auto) (0.00 - 0.03 x10 3/uL) 0. 02 Add Manual Diff NO Immature Gran % (0.0 - 2.0 %) 0.3 Nucleated RBC % (0 - 0 %) 0.0 Nucleated RBCs # (Man) (0.0 - 0.1 x10 3/uL) 0.0 0 Miscellaneous Maternal Serum HCG 213515.7 Urines Urine Color (YEL/STRAW) YELLOW Urine Appearance (CLEAR) CLOUDY H Urine pH (5.0 - 7.0) 8.0 H Ur Specific [place] (1.005 - 1.030) 1.013 Urine Protein (NEGATIVE) NEGATIVE Urine Glucose (UA) (NEGATIVE) NEGATIVE Urine Ketones (NEGATIVE) NEGATIVE Urine Blood (NEGATIVE) NEGATIVE Urine Nitrite (NEGATIVE) NEGATIVE Urine Bilirubin (NEGATIVE) NEGATIVE Urine Urobilinogen (0.2 - 1.0 mg/dL) 0.2 Ur Leukocyte Esterase (NEGATIVE) NEGATIVE Urine RBC (0 - 3 RBC/HPF) 0-3 Urine WBC (0 - 3 WBC/HPF) NONE SEEN Ur Squamous Epith Cells (NONE SEEN /HPF) 0-5 Urine Bacteria (NONE SEEN /HPF) 4+ H Urine Mucus (NONE SEEN /LPF) TRACE Recent Impressions: ULTRASOUND - DUP AB/PEL/SC/LTD 10/14 2329 Report Impression - Status: SIGNED Entered: 10/15/2020 0027 IMPRESSION: Single live intrauterine at 8 weeks 1 day associated with small subchorionic hemorrhage. SL: TPAINTER-H Impression By: ArnaudTPEkaterina - Clif Baker M.D. ULTRASOUND - US ABDOMEN LTD 10/14 2329 Report Impression - Status: SIGNED Entered: 10/15/2020 0014 IMPRESSION: Nonvisualized appendix preventing exclusion of a cute appendicitis. More sensitive evaluation may be obtained with M R if clinically indicated given status. SL: TPAINTER-H Impression By: Janeen Baker M.D. ULTRASOUND - US PREG 1ST TRIMTR 10/14 2330 Report Impression - Status: SIGNED Entered: 10/15/2020 002 IMPRESSION: Single live intrauterine at 8 weeks 1 day associated with small subchorionic hemorrhage. SL: TPAINTER-H Impression By: Janeen Baker M.D. Re-Evaluation MDM Re-Evaluation/Progress Re-Evaluation/Progress Text/Dict Note Ultrasound shows viable IUP at 8 weeks with good HR and small subchorionic hemorrhage. UA with 4+ bacteria with rest of lab s otherwise nonactionable. Beta-hCG is over 180,000 whi ch is most likely cause of vomiting. Will discharge home with p.o. antiemetics and should follow-up with her [facility]. ED Course Medication(s) Ordered Medication(s) Ordered: Anti-Infective Agents Sig/Frank Start time Last Medication Dose Route Stop Time Status Admin Ceftriaxone Sodium 1,000 MG X1ED STA 10/15 003 3 DC 10/15 Sodium Chloride 10 ML IV 10/15 0035 0037 Autonomic Drugs Sig/Frank Start time Last Medication Dose Route Stop Time Status Admin Dicyclomine HCl 20 MG X1ED STA 10/14 2312 DC PO 10/14 2313 2318 Electrolytic, Caloric, And Dannie Sig/Frank Start time Last Medication Dose Route Stop Time Status Admin Sodium Chloride 1,000 ML X1ED STA 10/14 2256 DC 10/14 IV 10/14 2355 2318 Gastrointestinal Drugs Sig/Frank Start time Last Medication Dose Route Stop Time Status Admin Ondansetron HCl 8 MG X1ED STA 10/14 2256 DC IV 10/14 2257 2318 Patient Discharge Departure Vital Signs/Condition Vital Signs First Documented: Result Date Time Pulse Ox 98 10/14 2312 B/P 162/99 10/14 2312 B/P Mean 120 10/14 2312 Temp 36.7 10/14 2312 Pulse 94 10/14 2312 Resp 16 10/14 2312 Last Documented: Result Date Time Pulse Ox 98 10/14 2312 B/P 162/99 10/14 2312 B/P Mean 120 10/14 2312 Temp 36.7 10/14 2312 Pulse 94 10/14 2312 Resp 16 10/14 2312 All vital signs available at the time of this en try have been reviewed. Condition Improved Clinical Impression Clinical Impression Primary Impression: UTI (urinary tract infection ) in in first trimester Secondary Impressions: Vomiting affecting pregna ncy Disposition Decision Discharge )( Discharged to Home Yes )( Time 0046 )( Date 10/15/20 Discharge/Care Plan Counseled Regarding Diagnosi s, Lab results, Imaging studies, Prescriptions, Need for follow-up, When to return to ED (Auto) Prescriptions Current Visit Scripts CEPHALEXIN (KEFLEX) 500 MG PO Q12H CEPHALEXIN (KEFLEX) 500 MG PO Q12H #14 CAPS ONDanestron (ZOFRAN ODT) 8 MG PO Q8H PRN NAUSEA/ VOMITING ONDanestron (ZOFRAN ODT) 8 MG PO Q8H PRN NAUSEA /VOMITING #20 TABS METOCLOPRAMIDE (REGLAN) 10 MG PO QID PRN PRN GEE SEA/VOMITING METOCLOPRAMIDE (REGLAN) 10 MG PO QID PRN PRN NA USEA/VOMITING #20 TABS Patient Instructions ED Bladder Infection, Femal e (Adult), ED Hyperemesis Gravidarum Referrals Leeanne Roman MD (PCP/Family): 1-2 Days Discharge Note I have spoken with the patie nt and/or caregivers. I have explained the patient's condition, diagnoses and jovany atment plan based on the information available to me at this time. I have answered the patient's and/ or caregiver's questions and addressed any concerns. The patient and/or careg karen have as good an understanding of the patient 's diagnosis, condition and treatment plan as can be expected at this point. The vital signs have bee n stable. The patient's condition is stable and appr opriate for discharge from the emergency department. The patient will pursue further outpatient evalu ation with the primary care physician or other designated or consulting phys ician as outlined in the discharge instructions. The patient and/or caregivers are agreeable to this plan of care and follow-up instructions have been exp lained in detail. The patient and/or caregivers have received these instructio ns in written format and have expressed an understanding of the discharge inst ructions. The patient and/or caregivers are aware that any significant change in condition or worsening of symptoms should prompt an immediate return to th is or the closest emergency department or a call to 911. Kenneth Lorenzana 10/16/20 0505: Patient Discharge Departure Supervising Physician Note MidLv Saw Pt Alone I have reviewed the PA/[employer]'s note and plan of car e. I was available for consultation as needed at al l times during the patient's visit in the emergency department. I agree with the clinical impression , plan and disposition. Electronically Signed by Eran Guzman NP on at 0443 RPT #:[id number] END OF REPORT 2020-10-14 23:31:00-00:00 [facility] [place] [facility] EM[facility]GENCY PROVIDER REPORT REPORT#:[id number] REPORT STATUS: Signed DATE:10/14/20 TIME: 2330 PATIENT: RUBIN JOEL UNIT #: [id number] ROOM/BED: AGE: 25 SEX: F PCP PHYS: Leeanne Roman MD SERVICE AUTHOR: Eran Guzman NP * ALL edits or amendments must be made on the SupportLocal/computer document * Eran Guzman 10/14/20 2331: HPI-Preg Under 20 Weeks Free Text HPI Notes Free Text HPI Notes 25-year-old G1, P0 7 weeks gestation presents wi complaint of right lower quadrant abdominal pain with associated nausea a nd vomiting. States that she has not been seen by an OB/G YN yet and has not had a confirmatory hCG performed but does have an appointment to see Dr. Roman. States that today she was unable to keep even fluids down. Has not been given any thing for the nausea and vomiting. Denies any severe past medical history . Denies vaginal bleeding currently. General Initial Greet Date/Time 10/14/20 2252 Presentation Chief Complaint Pelvic pain, , Nausea an d vomiting Review of Systems ROS Statements All systems rev neg except as marked. Free Text ROS Notes Free Text ROS Notes Review of Systems Constitutional Denies: Chills, Fatigue, Fever. Ears/Nose/Throat Denies: Nasal congestion, Throat pain. Respiratory Denies: Cough, non-productive, Shortness of brennan th. Cardiovascular Denies: Chest pain, Palpitations. GI Denies: Abdominal pain, Diarrhea. Reports: Nause a, Vomiting. Reports: Right pelvic pain, Musculoskeletal Denies: Back pain. Skin Denies: Erythema, Rash. Past Medical History - Adult Stated Complaint 7 WKS , VOMITING, RLQ P AIN, HEADACHE Allergies Coded Allergies: No Known Allergies (09/19/19) Calculated Suicide Risk (nurs) No risk Past Surgical History: Reports: Tonsillectomy. Smoking status: Smoking status for patients 13 years old or old er: Never Smoker Other Social History Local resident Physical Exam Vital Signs Vital Signs First Documented: Result Date Time Pulse Ox 98 10/14 2312 B/P 162/99 10/14 2312 B/P Mean 120 10/14 2312 Temp 36.7 10/14 2312 Pulse 94 10/14 2312 Resp 16 10/14 2312 Last Documented: Result Date Time Pulse Ox 98 10/14 2312 B/P 162/99 10/14 2312 B/P Mean 120 10/14 2312 Temp 36.7 10/14 2312 Pulse 94 10/14 2312 Resp 16 10/14 2312 Review of Vital Signs Reviewed Free Text PE Notes Free Text PE Notes Vital Signs Review of Vital Signs Reviewed Physical Exam General/Const General/Const Awake, Alert, No acute distress, Well appearing MS Head Head Atraumatic, Normocephalic Eyes Eyes Atraumatic, PERRL Ears/Nose/Throat Ears/Nose/Throat Atraumatic, Airway patent, Muc ous membranes moist MS Neck Neck Atraumatic, Supple Resp/Chest Respiratory/Chest Atraumatic, No respiratory di stress Cardiovascular Cardiovascular Heart rate NL, Regular rhythm, H eart sounds NL Abdomen/GI Abdomen/GI Atraumatic, Soft, right lower quadra nt tenderness that is at the belt line the patient was examined while sitting in a chair MS Back Back Atraumatic, Inspection NL no CVA tendernes s Skin Skin Atraumatic, Color NL, No rash Genitourinary General Exam deferred Neurologic Neurologic Oriented X3, Speech NL Psychiatric Psychiatric Affect NL, Mood NL Interpretation Diagnostics Lab Results Interpretation Results Laboratory Tests 10/14/202329: [Embedded Image Not Available] Laboratory Tests: 10/14 2329 Chemistry Sodium (134 - 147 mEq/L) 137 Potassium (3.4 - 5.0 mEq/L) 3.7 Chloride (100 - 108 mEq/L) 102 Carbon Dioxide (21 - 33 mEq/l) 27 Anion Gap (0 - 20) 12 BUN (7 - 18 mg/dL) < 5 L Creatinine (0.6 - 1.3 mg/dL) 0.7 Glomerular Filtr Rate (110 - 120) 123.4 H Glucose (70 - 110 mg/dL) 96 Calcium (8.0 - 10.5 mg/dL) 9.6 Total Bilirubin (0.0 - 1.0 mg/dL) 0.40 Direct Bilirubin (0.0 - 0.30 MG/DL) 0.10 Indirect Bilirubin (MG/DL) 0.30 AST (15 - 37 IUnit/L) 13 L ALT (30 - 65 IUnit/L) 7 L Total Alk Phosphatase (20 - 125 IUnit/L) 36 Total Protein (6.4 - 8.2 g/dL) 7.5 Albumin (3.4 - 5.0 g/dL) 4.60 Lipase (13 - 57 U/L) 35 Hematology WBC (4.5 - 11.0 x10 3/uL) 7.1 RBC (3.54 - 5.02 x10 6/uL) 5.01 Hgb (11.0 - 15.0 g/dL) 14.0 Hct (33.0 - 45.0 %) 42.8 MCV (81.0 - 99.0 fL) 85.4 MCH (27.0 - 33.0 pg) 27.9 MCHC (33.0 - 37.0 g/dL) 32.7 L RDW (11.5 - 14.5 %) 12.9 Plt Count (150 - 400 x10 3/uL) 264 MPV (7.0 - 9.0 fL) 9.5 H Neut % (Auto) (56.0 - 77.0 %) 73.7 Lymph % (Auto) (14.0 - 32.0 %) 20.5 [place] % (Auto) (4.8 - 9.0 %) 4.5 L Eos % (Auto) (0.3 - 3.7 %) 0.7 Baso % (Auto) (0.0 - 2.0 %) 0.3 Neut # (Auto) (2.0 - 7.6 x10 3/uL) 5.25 Lymph # (Auto) (1.0 - 3.8 x10 3/uL) 1.46 [place] # (Auto) (0.1 - 0.8 x10 3/uL) 0.32 Eos # (Auto) (0.0 - 0.2 x10 3/uL) 0.05 Baso # (Auto) (0.0 - 0.2 x10 3/uL) 0.02 Abs Immat Gran (auto) (0.00 - 0.03 x10 3/uL) 0. 02 Add Manual Diff NO Immature Gran % (0.0 - 2.0 %) 0.3 Nucleated RBC % (0 - 0 %) 0.0 Nucleated RBCs # (Man) (0.0 - 0.1 x10 3/uL) 0.0 0 Miscellaneous Maternal Serum HCG 598910.7 Urines Urine Color (YEL/STRAW) YELLOW Urine Appearance (CLEAR) CLOUDY H Urine pH (5.0 - 7.0) 8.0 H Ur Specific [place] (1.005 - 1.030) 1.013 Urine Protein (NEGATIVE) NEGATIVE Urine Glucose (UA) (NEGATIVE) NEGATIVE Urine Ketones (NEGATIVE) NEGATIVE Urine Blood (NEGATIVE) NEGATIVE Urine Nitrite (NEGATIVE) NEGATIVE Urine Bilirubin (NEGATIVE) NEGATIVE Urine Urobilinogen (0.2 - 1.0 mg/dL) 0.2 Ur Leukocyte Esterase (NEGATIVE) NEGATIVE Urine RBC (0 - 3 RBC/HPF) 0-3 Urine WBC (0 - 3 WBC/HPF) NONE SEEN Ur Squamous Epith Cells (NONE SEEN /HPF) 0-5 Urine Bacteria (NONE SEEN /HPF) 4+ H Urine Mucus (NONE SEEN /LPF) TRACE Recent Impressions: ULTRASOUND - DUP AB/PEL/SC/LTD 10/14 2329 Report Impression - Status: SIGNED Entered: 10/15/2020 0027 IMPRESSION: Single live intrauterine at 8 weeks 1 day associated with small subchorionic hemorrhage. SL: TPAINTER-H Impression By: Janeen Baker M.D. ULTRASOUND - US ABDOMEN LTD 10/14 2329 Report Impression - Status: SIGNED Entered: 10/15/2020 0014 IMPRESSION: Nonvisualized appendix preventing exclusion of a cute appendicitis. More sensitive evaluation may be obtained with M R if clinically indicated given status. SL: TPAINTER-H Impression By: Janeen Baker M.D. ULTRASOUND - US PREG 1ST TRIMTR 03/29 2330 Report Impression - Status: SIGNED Entered: 10/15/2020 0027 IMPRESSION: Single live intrauterine at 8 weeks 1 day associated with small subchorionic hemorrhage. SL: TPAINTER-H Impression By: Janeen - Clif Baker M.D. Re-Evaluation MDM Re-Evaluation/Progress Re-Evaluation/Progress Text/Dict Note Ultrasound shows viable IUP at 8 weeks with good HR and small subchorionic hemorrhage. UA with 4+ bacteria with rest of lab s otherwise nonactionable. Beta-hCG is over 180,000 whi ch is most likely cause of vomiting. Will discharge home with p.o. antiemetics and should follow-up with her [facility] HAND. ED Course Medication(s) Ordered Medication(s) Ordered: Anti-Infective Agents Sig/Frank Start time Last Medication Dose Route Stop Time Status Admin Ceftriaxone Sodium 1,000 MG X1ED STA 10/15 0033 DC 10/15 Sodium Chloride 10 ML IV 10/15 0035 0037 Autonomic Drugs Sig/Frank Start time Last Medication Dose Route Stop Time Status Admin Dicyclomine HCl 20 MG X1ED STA 10/14 2312 DC PO 10/14 2313 2318 Electrolytic, Caloric, And Dannie Sig/Frank Start time Last Medication Dose Route Stop Time Status Admin Sodium Chloride 1,000 ML X1ED STA 10/14 2256 DC 10/14 IV 10/14 2355 2318 Gastrointestinal Drugs Sig/Frank Start time Last Medication Dose Route Stop Time Status Admin Ondansetron HCl 8 MG X1ED STA 10/14 2256 DC IV 10/14 2257 2318 Patient Discharge Departure Vital Signs/Condition Vital Signs First Documented: Result Date Time Pulse Ox 98 10/143 B/P 162/99 10/14 2312 B/P Mean 120 10/14 2312 Temp 36.7 10/14 2312 Pulse 94 10/14 2312 Resp 16 10/14 2312 Last Documented: Result Date Time Pulse Ox 98 10/14 2312 B/P 162/99 10/14 2312 B/P Mean 120 10/14 2312 Temp 36.7 10/14 2312 Pulse 94 10/14 2312 Resp 16 10/14 2312 All vital signs available at the time of this en try have been reviewed. Condition Improved Clinical Impression Clinical Impression Primary Impression: UTI (urinary tract infection ) in in first trimester Secondary Impressions: Vomiting affecting pregna ncy Disposition Decision Discharge )( Discharged to Home Yes )( Time 0046 )( Date 10/15/20 Discharge/Care Plan Counseled Regarding Diagnosi s, Lab results, Imaging studies, Prescriptions, Need for follow-up, When to return to ED (Auto) Prescriptions Current Visit Scripts CEPHALEXIN (KEFLEX) 500 MG PO Q12H CEPHALEXIN (KEFLEX) 500 MG PO Q12H #14 CAPS ONDanestron (ZOFRAN ODT) 8 MG PO Q8H PRN NAUSEA/ VOMITING ONDanestron (ZOFRAN ODT) 8 MG PO Q8H PRN NAUSEA /VOMITING #20 TABS METOCLOPRAMIDE (REGLAN) 10 MG PO QID PRN PRN GEE SEA/VOMITING METOCLOPRAMIDE (REGLAN) 10 MG PO QID PRN PRN NA USEA/VOMITING #20 TABS Patient Instructions ED Bladder Infection, Femal e (Adult), ED Hyperemesis Gravidarum Referrals Leeanne Roman MD (PCP/Family): 1-2 Days Discharge Note I have spoken with the patie nt and/or caregivers. I have explained the patient's condition, diagnoses and jovany atment plan based on the information available to me at this time. I have answered the patient's and/ or caregiver's questions and addressed any concerns. The patient and/or careg karen have as good an understanding of the patient 's diagnosis, condition and treatment plan as can be expected at this point. The vital signs have bee n stable. The patient's condition is stable and appr opriate for discharge from the emergency department. The patient will pursue further outpatient evalu ation with the primary care physician or other designated or consulting phys ician as outlined in the discharge instructions. The patient and/or caregivers are agreeable to this plan of care and follow-up instructions have been exp lained in detail. The patient and/or caregivers have received these instructio ns in written format and have expressed an understanding of the discharge inst ructions. The patient and/or caregivers are aware that any significant change in condition or worsening of symptoms should prompt an immediate return to [facility] or the closest emergency department or a call to 911. Kenneth Lorenzana 10/16/20 0505: Patient Discharge Departure Supervising Physician Note MidLv Saw Pt Alone I have reviewed the PA/[employer]'s note and plan of car e. I was available for consultation as needed at al l times during the patient's visit in the emergency department. I agree with the clinical impression , plan and disposition. Electronically Signed by Eran Guzman NP on at 0443 at 0506 RPT #:[id number] END OF REPORT 2019-09-19 22:10:00-00:00 [facility] [place] [facility] EM[facility]GENCY PROVIDER REPORT REPORT#:[id number] REPORT STATUS: Signed DATE:09/19/19 TIME: 2209 PATIENT: RUBIN JOEL UNIT #: [id number] ROOM/BED: AGE: 24 SEX: F PCP PHYS: No Primary or Family P hysician SERVICE AUTHOR: Katja Messina NP * ALL edits or amendments must be made on the SupportLocal/computer document * HPI-URI/Cough/Cold General Confirmed Patient Yes Initial Greet Date/Time 09/19/192203 Presentation Chief Complaint Cough, productive Hx Obtained From Patient Free Text HPI Notes Free Text HPI Notes 24 y/o female with no significant PMHx presents to the ED with complaints of cough and nasal congestion x2 days. Pt d enies fever. Pt reports she is worried because "Her mother has canc er and just got chemo so I wanted to make sure I don 't have flu or strep." Pt denies other serious c omplaints Review of Systems ROS Statements All systems rev neg except as marked. Focused Review of Systems Ears/Nose/Throat Reports: Nasal congestion. Respiratory Reports: Cough, productive. Past Medical History - Adult Stated Complaint COUGHING AND SWOLLEN LYMPH NODE Allergies Coded Allergies: No Known Allergies (09/19/19) Home Medications Reported Medications No Known Home Medications Pt reports no significant: P ast medical history, Family history, Social history Past Surgical History: Reports: Tonsillectomy. Other Social History Local resident Physical Exam Vital Signs Vital Signs First Documented: Result Date Time Pulse Ox 99 09/18 2242 B/P 140/90 09/18 2242 B/P Mean 106 03/03 2242 O2 Delivery Room air 09/18 2241 Temp 36.8 09/18 2241 Pulse 93 09/18 2241 Resp 17 09/18 2241 Last Documented: Result Date Time Pulse Ox 98 09/18 2357 B/P 124/88 09/18 2357 B/P Mean 100 09/18 2357 Pulse 87 09/18 2357 Resp 16 09/18 2357 O2 Delivery Room air 09/18 2241 Temp 36.8 09/18 2241 Review of Vital Signs Reviewed, Vital signs norm al Focused PE General/Const General/Const Awake, Alert, No acute di stress, Well appearing, Well developed , Well hydrated, Well nourished, Cooperative, No t toxic appearing Eyes Eyes PERRL, EOMI, No photophobia, No scleral ic terus Ears/Nose/Throat Ears/Nose/Throat Airway patent, Mucous membrane s moist, Pharynx NL, Tympanic membs NL Nose Discharge nasal clear. MS Neck Neck Supple, No meningismus, Full range of jayashree on, No adenopathy Resp/Chest Respiratory/Chest Breath sounds NL, Breath soun ds = bilat, No respiratory distress, No wheezing Text/Dict Notes wet cough noted Cardiovascular Cardiovascular Heart rate NL, Regular r hythm, Heart sounds NL, Cap refill not delayed Abdomen/GI Abdomen/GI Soft, Non-tender Skin Skin Color NL, No rash, Warm, Dry, Intact Neurologic Neurologic Oriented X3, Speech NL, No motor def icits, No sensory deficits Interpretation Diagnostics Lab Results Interpretation Results Microbiology: Date/Time Procedure - Status Source Growth 09/19 2247 Group A Streptococcus Screen (LEWIS) - COMP THROAT 09/19 2247 Streptococcus Culture - COMP THROAT 09/19 2247 Influenza Virus Type B Antigen - CO MP NASAL 09/19 2247 Influenza Virus Type A Antigen - COM P NASAL Lab Statement Laboratory studies reviewed and considered in e medical decision-making. Re-Evaluation MDM Free Text MDM Notes Free Text MDM Notes Exam and results consistent with viral URI. Low suspicion for serious bacterial infection, bacterial pneumon ia, or other serious pathology. Will dc pt home with home care instructions Re-Evaluation/Progress Re-Evaluation/Progress Text/Dict Note Pt reports she is feeling be tter. Discussed results, most likely diagnosis, home care instructions, strict return precaut ions, and need for f/u in 1-2 days. Pt verbalizes understanding and agrees. Time of Re-Eval 2328 Re-Eval Status Improved ED Course Medication(s) Ordered Medication(s) Ordered: Hormones And Synthetic Substit Sig/Frank Start time Last Medication Dose Route Stop Time Status Admin Prednisone 50 MG X1ED STA 09/18 2208 DC 09/18 PO 09/18 2210 2254 Respiratory Tract Agents Sig/Frank Start time Last Medication Dose Route Stop Time Status Admin Guaifenesin 600 MG X1ED STA 09/18 2208 DC 09/18 PO 09/18 2210 2254 Patient Discharge Departure Vital Signs/Condition Vital Signs First Documented: Result Date Time Pulse Ox 99 09/18 2242 B/P 140/90 09/18 2242 B/P Mean 106 09/18 2242 O2 Delivery Room air 09/18 224 Temp 36.8 09/18 224 Pulse 93 09/18 2242 Resp 17 09/18 2242 Last Documented: Result Date Time Pulse Ox 98 09/18 2358 B/P 124/88 09/18 2358 B/P Mean 100 09/18 2358 Pulse 87 09/18 2358 Resp 16 09/18 2358 O2 Delivery Room air 09/18 2242 Temp 36.8 09/18 2242 All vital signs available at the time of this en try have been reviewed. Condition Stable Clinical Impression Clinical Impression Primary Impression: Viral URI Disposition Decision Discharge )( Discharged to Home Yes )( Time 2328 )( Date 09/19/19 Discharge/Care Plan Counseled Regarding Diagnosi s, Lab results, Imaging studies, Prescriptions, Need for follow-up, When to return to ED Prescriptions flonase, bromfed Prescriptions Reviewed Risks, Benefits, Alternat aram treatment Electronically Signed by Katja Messina [employer] on 0 09/21/19 at 1509 RPT #:[id number] END OF REPORT 2019-09-19 22:10:00-00:00 [facility] ([facility]) EMERGENCY PROVIDER REPORT REPORT#:[id number] REPORT STATUS: Signed DATE:09/19/19 TIME: 2209 PATIENT: RUBIN JOEL UNIT #: [id number] ROOM/BED: AGE: 24 SEX: F PCP PHYS: No Primary or Family Ph ysician SERVICE AUTHOR: Katja Messina [employer] * ALL edits or amendments must be made on the SupportLocal/computer document * Katja Messina 09/19/19 2210: HPI-URI/Cough/Cold General Confirmed Patient Yes Presentation Chief Complaint Cough, productive Hx Obtained From Patient Free Text HPI Notes Free Text HPI Notes 24 y/o female with no significant PMHx presents to the ED with complaints of cough and nasal congestion x2 days. Pt d enies fever. Pt reports she is worried because "Her mother has canc er and just got chemo so I wanted to make sure I don 't have flu or strep." Pt denies other serious c omplaints Review of Systems ROS Statements All systems rev neg except as marked. Focused Review of Systems Ears/Nose/Throat Reports: Nasal congestion. Respiratory Reports: Cough, productive. Past Medical History - Adult Stated Complaint COUGHING AND SWOLLEN LYMPH NODE Allergies Coded Allergies: No Known Allergies (09/19/19) Home Medications Reported Medications No Known Home Medications Pt reports no significant: P ast medical history, Family history, Social history Past Surgical History: Reports: Tonsillectomy. Other Social History Local resident Physical Exam Vital Signs Vital Signs First Documented: Result Date Time Pulse Ox 99 09/18 2241 B/P 140/90 09/18 2241 B/P Mean 106 09/182 O2 Delivery Room air 09/18 2241 Temp 36.8 09/18 2241 Pulse 93 09/18 2241 Resp 17 09/18 2241 Last Documented: Result Date Time Pulse Ox 98 09/18 2358 B/P 124/88 09/18 2358 B/P Mean 100 09/18 235 Pulse 87 09/18 2358 Resp 16 09/18 2358 O2 Delivery Room air 09/18 2241 Temp 36.8 09/18 2241 Review of Vital Signs Reviewed, Vital signs norm al Focused PE General/Const General/Const Awake, Alert, No acute di stress, Well appearing, Well developed , Well hydrated, Well nourished, Cooperative, No t toxic appearing Eyes Eyes PERRL, EOMI, No photophobia, No scleral ic terus Ears/Nose/Throat Ears/Nose/Throat Airway patent, Mucous membrane s moist, Pharynx NL, Tympanic membs NL Nose Discharge nasal clear. MS Neck Neck Supple, No meningismus, Full range of jayashree on, No adenopathy Resp/Chest Respiratory/Chest Breath sounds NL, Breath soun ds = bilat, No respiratory distress, No wheezing Text/Dict Notes wet cough noted Cardiovascular Cardiovascular Heart rate NL, Regular r hythm, Heart sounds NL, Cap refill not delayed Abdomen/GI Abdomen/GI Soft, Non-tender Skin Skin Color NL, No rash, Warm, Dry, Intact Neurologic Neurologic Oriented X3, Speech NL, No motor def icits, No sensory deficits Interpretation Diagnostics Lab Results Interpretation Results Microbiology: Date/Time Procedure - Status Source Growth 09/19 2247 Group A Streptococcus Screen (LEWIS) - COMP THROAT 09/19 2247 Streptococcus Culture - COMP THROAT 09/19 2247 Influenza Virus Type B Antigen - COM P NASAL 09/19 2247 Influenza Virus Type A Antigen - COM P NASAL Lab Statement Laboratory studies reviewed and considered in e medical decision-making. Re-Evaluation MDM Free Text MDM Notes Free Text MDM Notes Exam and results consistent with viral URI. Low suspicion for serious bacterial infection, bacterial pneumon ia, or other serious pathology. Will dc pt home with home care instructions Re-Evaluation/Progress Re-Evaluation/Progress Text/Dict Note Pt reports she is feeling be tter. Discussed results, most likely diagnosis, home care instructions, strict return precaut ions, and need for f/u in 1-2 days. Pt verbalizes understanding and agrees. Time of Re-Eval 2328 Re-Eval Status Improved ED Course Medication(s) Ordered Medication(s) Ordered: Hormones And Synthetic Substit Sig/Frank Start time Last Medication Dose Route Stop Time Status Admin Prednisone 50 MG X1ED STA 09/18 2208 DC 09/18 PO 09/18 2210 2254 Respiratory Tract Agents Sig/Frank Start time Last Medication Dose Route Stop Time Status Admin Guaifenesin 600 MG X1ED STA 09/18 2208 DC 09/18 PO 09/18 2210 2254 Patient Discharge Departure Vital Signs/Condition Vital Signs First Documented: Result Date Time Pulse Ox 99 09/18 2241 B/P 140/90 09/18 2241 B/P Mean 106 09/18 2241 O2 Delivery Room air 09/18 2241 Temp 36.8 09/18 2241 Pulse 93 09/18 2241 Resp 17 09/18 2241 Last Documented: Result Date Time Pulse Ox 98 09/18 2357 B/P 124/88 09/18 2357 B/P Mean 100 09/18 2357 Pulse 87 09/18 2357 Resp 16 09/18 235 O2 Delivery Room air 09/18 2241 Temp 36.8 09/18 2241 All vital signs available at the time of this en try have been reviewed. Condition Stable Clinical Impression Clinical Impression Primary Impression: Viral URI Disposition Decision Discharge )( Discharged to Home Yes )( Time 2328 )( Date 09/19/19 Discharge/Care Plan Counseled Regarding Diagnosi s, Lab results, Imaging studies, Prescriptions, Need for follow-up, When to return to ED Prescriptions flonase, bromfed Prescriptions Reviewed Risks, Benefits, Alternat aram treatment Denny Perera 09/21/19 1827: HPI-URI/Cough/Cold General Initial Greet Date/Time 09/19/192203 Patient Discharge Departure Supervising Physician Note Provider Scribed Statement All charts, labs, and imaging studies were revie wed. I agree with the PA/[employer]'s findings, exam, and plan. I personally performed the s ervices described in this documentation and reviewed the documentation that was dictated to the scrib e(s) in my presence, and it accurately records my words and actions. Rebecca Perera, 09/21/19 Electronically Signed by Katja Messina [employer] on 0 09/21/19 at 1509 Electronically Signed by Denny Perera DO on 09/20 at 1827 RPT #:[id number] END OF REPORT 2018-09-16 20:31:00-00:00 [facility] ([facility]) EMERGENCY PROVIDER REPORT REPORT#:[id number] REPORT STATUS: Signed DATE:09/16/18 TIME: 2030 PATIENT: RUBIN JOEL UNIT #: [id number] ROOM/BED: AGE: 23 SEX: F PCP PHYS: No Primary or Family Ph ysician SERVICE AUTHOR: Jeff Hansen MD * ALL edits or amendments must be made on the SupportLocal/TAPP document * HPI-Nausea/Vomit/Diarrhea General Confirmed Patient Yes Date/Time Seen by Provider 09/16/182015 PCP N/A Presentation Chief Complaint Vomiting Hx Obtained From Patient Onset Occurred Today Vomiting Vomiting blood Associated with Reports: Headache. Associated Other Reports sore throat. Denies CP, cough, diarrhea, Free Text HPI Notes Free Text HPI Notes 23 y/o F c/o vomitting since this montanadebadonis zainSharif Pt reports bright red blood in some episodes of emesis. Associat ed sxs include HAIDER and sore throat. Pt denies cough, diarrhea, and CP. Pt visited [facility] ED last week with similar symptoms.she was dx with swollen ly mph nodes. states no improvement. no medications or followup given Portions of this section were scribed by Silas Winslow on 09/17/18 at 0542 Review of Systems ROS Statements All systems rev neg except as marked. Focused Review of Systems Constitutional Denies: Fever, Lethargy. Ears/Nose/Throat Reports: Sore throat. GI Reports: Hematemesis, Vomiting. Skin Denies: Rash. Neurologic Reports: Headache. Additional Review of Systems Respiratory Denies: Cough, non-productive. Musculoskeletal Denies: Neck pain. Portions of this section were scribed by Silas Winslow on 09/16/18 at 2031 Past Medical History - Adult Stated Complaint SORE THROAT, "COUGHING UPBRIGHT BLOOD" Allergies Coded Allergies: No Known Allergies (09/16/18) Home Medications Reported Medications No Known Home Medications Review of Nursing Notes Rev avail, and agree Pt reports no significant: P ast surgical history, Family history, Social history Past Surgical History: Reports: Tonsillectomy. Smoking status for patients 13 years old or olde r: Never Smoker Other Social History Local resident Portions of this section were scribed by Silas Winslow on 09/16/18 at 203 Physical Exam Vital Signs Vital Signs First Documented: Result Date Time Pulse Ox 99 09/16 2002 B/P 159/110 09/16 2002 B/P Mean 126 09/16 2002 O2 Delivery Room air 09/16 2002 Temp 37.2 09/16 2002 Pulse 81 09/16 2002 Resp 17 09/16 2002 Last Documented: Result Date Time Pulse Ox 100 09/18 31 B/P 135/81 09/18 31 B/P Mean 99 09/18 31 Pulse 77 09/18 31 Resp 16 09/18 31 O2 Delivery Room air 09/16 2002 Temp 37.2 09/16 2002 Review of Vital Signs Reviewed Focused PE General/Const General/Const Awake, Alert, No acute distress, Well developed, Cooperative Eyes Eyes EOMI, Conjunctiva NL Ears/Nose/Throat Ears/Nose/Throat Airway patent, Mucous membrane s moist Resp/Chest Respiratory/Chest Breath sounds NL, No respirat ory distress, No rales, No rhonchi, No wheezing Cardiovascular Cardiovascular Regular rhythm Heart Rate/Rhythm Tachycardia. Abdomen/GI Abdomen/GI Soft, Non-tender, No guarding, No re bound, No distention Skin Skin Warm, Dry, Intact Neurologic Neurologic Oriented X3, Speech NL, No m otor deficits, No sensory deficits, CN II - XII intact, Reflexes equal bilat, Cerebella r NL, Memory NL, Gait NL Additional PE MS Head Head Atraumatic, Normocephalic MS Neck Text/Dict Notes No stiffness Psychiatric Psychiatric Affect NL, Mood NL Portions of this section were scribed by Silas Winslow on 09/17/18 at 0527 Interpretation Diagnostics Lab Results Interpretation Results Laboratory Tests 09/16/182118: [Embedded Image Not Available] Laboratory Tests: 09/16 2118 Chemistry Sodium (134 - 147 mEq/L) 137 Potassium (3.4 - 5.0 mEq/L) 3.8 Chloride (100 - 108 mEq/L) 102 Carbon Dioxide (21 - 33 mEq/L) 29 Anion Gap (0 - 20) 10 BUN (7 - 18 mg/dL) 10 Creatinine (0.6 - 1.3 mg/dL) 0.9 Glomerular Filtr Rate (110 - 120) 93.9 L Glucose (70 - 110 mg/dL) 84 Calcium (8.0 - 10.5 mg/dL) 9.5 Total Bilirubin (0.0 - 1.0 mg/dL) 0.30 AST (15 - 37 IUnit/L) 13 L ALT (15 - 65 IUnit/L) 17 Total Alk Phosphatase (20 - 125 IUnit/L) 40 Total Protein (6.4 - 8.2 g/dL) 9.2 H Albumin (3.4 - 5.0 g/dL) 5.00 Lipase (73 - 393 IUnit/L) 97 Serum , Qual (NEGATIVE) SERUM NEGATIVE Hematology WBC (4.5 - 11.0 x10 3/uL) 7.25 RBC (3.54 - 5.02 x10 6/uL) 5.15 H Hgb (11.0 - 15.0 g/dL) 14.3 Hct (33.0 - 45.0 %) 45.2 H MCV (81.0 - 99.0 fL) 87.8 MCH (27.0 - 33.0 pg) 27.8 MCHC (33.0 - 37.0 g/dL) 31.6 L RDW (11.5 - 14.5 %) 12.8 Plt Count (150 - 400 x10 3/uL) 255 MPV (7.0 - 9.0 fL) 10.3 H Neut % (Auto) (56.0 - 77.0 %) 72.6 Lymph % (Auto) (14.0 - 32.0 %) 20.4 [place] % (Auto) (4.8 - 9.0 %) 5.0 Eos % (Auto) (0.3 - 3.7 %) 1.0 Baso % (Auto) (0.0 - 2.0 %) 0.6 Neut # (Auto) (2.0 - 7.6 x10 3/uL) 5.27 Lymph # (Auto) (1.0 - 3.8 x10 3/uL) 1.48 [place] # (Auto) (0.1 - 0.8 x10 3/uL) 0.36 Eos # (Auto) (0.0 - 0.2 x10 3/uL) 0.07 Baso # (Auto) (0.0 - 0.2 x10 3/uL) 0.04 Abs Immat Gran (auto) (0.00 - 0.03 x10 3/uL) 0. 03 Add Manual Diff NO Immature Gran % (0.0 - 2.0 %) 0.4 Nucleated RBC % (0 - 0 %) 0.0 Nucleated RBCs # (Man) (0.0 - 0.1 x10 3/uL) 0.0 0 Urines Urine Color (YEL/STRAW) YELLOW Urine Appearance (CLEAR) CLOUDY H Urine pH (5.0 - 7.0) 9.0 H Ur Specific [place] (1.005 - 1.030) 1.017 Urine Protein (NEGATIVE) NEGATIVE Urine Glucose (UA) (NEGATIVE) NEGATIVE Urine Ketones (NEGATIVE) NEGATIVE Urine Blood (NEGATIVE) NEGATIVE Urine Nitrite (NEGATIVE) NEGATIVE Urine Bilirubin (NEGATIVE) NEGATIVE Urine Urobilinogen (0.2 - 1.0 mg/dL) 0.2 Ur Leukocyte Esterase (NEGATIVE) NEGATIVE Urine RBC (0 - 3 RBC/HPF) 4-10 Urine WBC (0 - 3 WBC/HPF) 0-3 Ur Squamous Epith Cells (NONE SEEN /HPF) 0-5 Urine Bacteria (NONE SEEN /HPF) TRACE Microbiology: Date/Time Procedure - Status Source Growth 09/16 2118 Group A Streptococcus Screen (LEWIS) - COMP THROAT 09/16 2118 Streptococcus Culture - COMP THROAT 09/16 2118 Influenza Virus Type B Antigen - COM P NASOPHARG 09/16 2118 Influenza Virus Type A Antigen - COM P NASOPHARG Recent Impressions: CAT SCAN - CT ABD PELVIS W/CONT 09/16 2328 Report Impression - Status: SIGNED Entered: 09/16/2018 4344 IMPRESSION: 1. Mildly prominent small bowel loops and mild m esenteric stranding may represent enteritis. No bowel obstruction se en. 2. Small appendicolith without evidence for acut e appendicitis. 3. Left ovarian cyst.. SL: STEVEN-H Impression By: [email or web address] - Bobby Dolan M.D. Lab Imaging Statement Laboratory radiographic studies reviewed and con sidered in the medical decision-making. Point of Care Testing Pulse Oximetry Pulse Ox % 99 On: Room air Interpretation Interpreted by me, Pulse oximetr y normal Time [address] Abdomen/Pelvis Study type IV contrast Text/Dict Note 1. Mildly prominent small bowel loops and mild m esenteric stranding may represent enteritis. No bowel obstruction seen. 2. Small appendicolith without evidence for acut e appendicitis. 3. Left ovarian cyst.. Interpretation/Wet Read by Sarah - Radiolko gist Reviewed by ED physician Portions of this section were scribed by Silas Winslow on 09/17/18 at 0542 Re-Evaluation MDM Free Text MDM Notes Free Text MDM Notes clinically do not suspect meningitis or head ble ed. re-eval after meds and workup. but currently clinically stable Re-Evaluation/Progress #1 Text/Dict Note Pt is still waiting for CT abd/pelvis, however a ll sxs are resolved and pt is back to baseline. Time of Re-Eval 2304 Re-Evaluation/Progress #2 Text/Dict Note CT abd/pelvis suggests mild enteritis, all sxs h ave resolved in ER, pt is A O and ambulatory w/ no distress, no clear source o f pt's presentation, suspect viral disease, will D/C home w/ rod and bird l and recommend f/u w/ PCP or return to ER if sxs worsen. Time of Eval 0000 ED Course Medication(s) Ordered Medication(s) Ordered: Central Nervous System Agents Sig/Frank Start time Last Medication Dose Route Stop Time Status Admin Ketorolac 30 MG X1ED STA 09/16 2214 DC Tromethamine IV 09/17 2215 Morphine Sulfate 4 MG X1ED STA 09/17 2031 DC IV 09/16 Diagnostic Agents Sig/Frank Start time Last Medication Dose Route Stop Time Status Admin Iopamidol 100 ML .STK-MED ONE 09/17 0240 DC IV 09/17 240 0240 Electrolytic, Caloric, And Dannie Sig/Frank Start time Last Medication Dose Route Stop Time Status Admin Sodium Chloride 0 ASDIR PRN 09/16 2044 DCD IV 09/18 1931 Sodium Chloride 1,000 ML X1ED STA 09/17 2031 DC 09/16 IV 09/16 2130 213 Gastrointestinal Drugs Sig/Frank Start time Last Medication Dose Route Stop Time Status Admin Ondansetron HCl 4 MG X1ED STA 09/16 2032 DC IV 09/16 Famotidine 20 MG X1ED STA 09/17 2031 DC 09/16 IV 09/16 Portions of this section were scribed by Silas Winslow on 09/17/18 at 0527 Patient Discharge Departure Vital Signs/Condition Vital Signs First Documented: Result Date Time Pulse Ox 99 09/16 2002 B/P 159/110 09/16 2002 B/P Mean 126 09/16 2002 O2 Delivery Room air 09/16 2002 Temp 37.2 09/16 2002 Pulse 81 09/16 2002 Resp 17 09/16 2002 Last Documented: Result Date Time Pulse Ox 100 09/17 0032 B/P 135/81 09/17 003 B/P Mean 99 09/17 003 Pulse 77 09/18 31 Resp 16 09/18 31 O2 Delivery Room air 09/16 2002 Temp 37.2 09/16 2002 All vital signs available at the time of this en try have been reviewed. Condition Stable Clinical Impression Clinical Impression Primary Impression: Abdominal pain Secondary Impressions: N V (nausea and vomiting) , Viral illness Disposition Decision Discharge )( Discharged to Home Yes )( Time 0003 )( Date 09/17/18 Discharge/Care Plan Counseled Regarding Diagnosi s, Lab results, Imaging studies, Prescriptions, Need for follow-up, When to return to ED Prescriptions dusty Landa[place]de Supervising Physician Note Scribe Statement Silas Winslow, 09/16/182037, scribing for and in the presence of Dr. Hansen. Signed By: Silas Winslow, 09/16/182037 Provider Scribed Statement I personally performed the s ervices described in this documentation and reviewed the documentation that was dictated to the scrib e(s) in my presence, and it accurately records my words and actions. Gretel Hansen, 09/16/18 Portions of this section were scribed by Silas Winslow on 09/17/18 at 0003 Electronically Signed by Jeff Hansen MD on at 1026 RPT #:[id number] END OF REPORT
[2023-01-12] MEDS ORDERED: NA CHLORIDE 0.9% 1,000 ML ONE (09:50)
[2023-01-12 10:09] LABS: Absolute Lymphocytes (CBC) 1.8 K/uL (0.7-4.9); Hematocrit 43.9 % (36.0-45.0); Lymphocytes % 36.1 % (15.3-44.8); MCV 83.9 fL (80-100); MPV 8.7 fL (7.6-11.3); RBC Red Blood Cell Count 5.23 M/uL (3.86-4.86)
[2023-01-12 10:26] LABS: Albumin 4.4 g/dL (3.4-5.0); Bilirubin Total 0.5 mg/dL (0.2-1.0); Potassium 3.8 mEq/L (3.5-5.1); Protein, Total 8.2 g/dL (6.4-8.2)
[2023-01-12 10:29] LABS: SARS-CoV-2 Antigen Rapid Res Negative (Negative)
[2023-01-12 10:50] LABS: Specific Gravity 1.032 (1.005-1.030)
[2023-01-12 11:12] LABS: Specific Gravity > 1.030 (1.005-1.030); Urine Bacteria <20 /HPF (<20); Urine Bilirubin NEGATIVE (Negative); Urine Blood 3+ (Negative); Urine Clarity Turbid (Clear); Urine Color Yellow (Yellow); Urine Glucose NEGATIVE (Negative); Urine Mucus 3+ /HPF (None Seen); Urine Protein 1+ (Negative); Urine RBC >50 /HPF (None Seen); Urine Urobilinogen Normal (Normal)
--- NOTE | 2023-01-12 11:31 | ER ---
Nurse's Notes [facility] Name: Jessie Joel Age: 27 yrs Sex: Female : 1995 Arrival Date: 01/12/2023 Time: 09:21 Bed 15 Private MD: Diagnosis: Vomiting;Dysuria Presentation: 01/12 09:42 Chief complaint: Patient states: N/V for past two weeks. Coronavirus screen: Vaccine eh3 status: Patient reports receiving the 2nd dose of the covid vaccine. Ebola Screen: No symptoms or risks identified at this time. Initial Sepsis Screen: Does the patient meet any 2 criteria? No. Patient's initial sepsis screen is negative. Does the patient have a suspected source of infection? No. Patient's initial sepsis screen is negative. Risk Assessment: Do you want to hurt yourself or someone else? Patient reports no desire to harm self or others. Onset of symptoms was January 12, 2023. 09:42 Method Of Arrival: Ambulatory eh3 09:42 Acuity: ADOLFO 3 eh3 Triage Assessment: 09:50 General: Appears in no apparent distress. uncomfortable, Behavior is calm, cooperative, eh3 appropriate for age. Pain: Complains of pain in abdomen. EENT: Throat is pink. Neuro: Level of Consciousness is awake, alert, obeys commands, Oriented to person, place, time, situation. Cardiovascular: Capillary refill < 3 seconds Patient's skin is warm and dry. Respiratory: Airway is patent Respiratory effort is even, unlabored, Respiratory pattern is regular, symmetrical. GI: Abdomen is round non-distended, Reports nausea, vomiting. Derm: Skin is healthy with good turgor. Musculoskeletal: Circulation, motion, and sensation intact. 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 - Social history:: Smoking status: Reported history of juuling and/or vaping. Patient uses alcohol, occasionally. Screenin:52 [facility] ED Fall Risk Assessment (Adult) Score/Fall Risk Level 0 - 2 = Low Risk. Abuse eh3 screen: Denies threats or abuse. Denies injuries from another. Nutritional screening: No deficits noted. Tuberculosis screening: No symptoms or risk factors identified. Assessment: 09:52 Reassessment: No changes from previously documented assessment. See triage assessment. 3 09:52 GI: Abdomen is round non-distended, Reports nausea, vomiting. eh3 10:30 Reassessment: Patient appears in no apparent distress at this time. Patient and/or 3 family updated on plan of care and expected duration. Pain level reassessed. Patient is alert, oriented x 3, equal unlabored respirations, skin warm/dry/pink. 11:30 Reassessment: Patient appears in no apparent distress at this time. Patient and/or 3 family updated on plan of care and expected duration. Pain level reassessed. Patient is alert, oriented x 3, equal unlabored respirations, skin warm/dry/pink. Vital Signs: 09:42 BP 145 / 113; Pulse 100; Resp 18; Temp 98.5(TE); Pulse Ox 96% on R/A; Weight 71.67 kg; 3 Height 5 ft. 3 in. ; 10:30 BP 129 / 86; Pulse 76; Resp 18; Pulse Ox 99% on R/A; eh3 11:30 BP 129 / 105; Pulse 68; Resp 18; Pulse Ox 99% on R/A; eh3 09:42 Body Mass Index 27.99 (71.67 kg, 160.02 cm) 3 ED Course: 09:25 Patient arrived in ED. mr 09:26 Clay Alvarez MD is Attending Physician. bs3 09:40 Suzanne Botello, KIM is Primary Nurse. 3 09:50 Triage completed. 3 09:50 Arm band placed on. 3 09:52 Patient has correct armband on for positive identification. Bed in low position. Call [facility] light in reach. Side rails up X2. Pulse ox on. NIBP on. Door closed. Noise minimized. Warm blanket given. 10:07 Inserted saline lock: 22 gauge in right antecubital area, using aseptic technique. 3 Blood collected. Completed by college staff. 12:18 No provider procedures requiring assistance completed. IV discontinued, intact, 3 bleeding controlled, No redness/swelling at site. Pressure dressing applied. Administered Medications: 10:15 Drug: NS 0.9% IV 1000 ml Route: IV; Rate: 1000 ml; Site: right antecubital; 3 12:00 Follow up: IV Status: Completed infusion; IV Intake: 1000ml eh3 12:15 Follow up: Response: No adverse reaction 3 11:40 Drug: Rocephin IV 0.5 grams Route: IV; Rate: 1 bolus; Site: right antecubital; 3 11:50 Follow up: Response: No adverse reaction; IV Status: Completed infusion; IV Intake: [id number] Medication: 12:18 VIS not applicable for this client. eh3 Intake: 11:50 IV: 50ml; Total: 50ml. eh3 12:00 IV: 1000ml; Total: 1050ml. 3 Outcome: 11:30 Discharge ordered by MD. bs3 12:18 Discharged to home ambulatory. 3 12:18 Condition: stable 12:18 Discharge instructions given to patient, Instructed on discharge instructions, follow up and referral plans. medication usage, Demonstrated understanding of instructions, follow-up care, medications, Prescriptions given X 2. 12:19 Patient left the ED. 3 Signatures: Alanna Ku Erin, RN RN eh3 Clay Alvarez MD MD bs3 Corrections: (The following items were deleted from the chart) 11:19 09:52 GI: see triage assessment 3 3 11:19 11:19 Reassessment: Patient appears in no apparent distress at this time. Patient eh3 and/or family updated on plan of care and expected duration. Pain level reassessed. Patient is alert, oriented x 3, equal unlabored respirations, skin warm/dry/pink. 3
--- NOTE | 2023-01-12 11:31 | EDPHYS ---
Physician Documentation [facility] Name: Jessie Joel Age: 27 yrs Sex: Female : 1995 Arrival Date: 01/12/2023 Time: 09:21 Bed 15 Private MD: ED Physician Clay Alvarez HPI: 01/12 09:38 This 27 yrs old Black Female presents to ER via Unassigned with complaints of Vomiting, bs3 Voice Loss. 09:38 Patient notes intermittent diarrhea, vomiting and crampy abdominal pain for bs3 approximately 2 weeks no recent travel no recent antibiotic use her mom was sick with COVID just before her symptoms started denies any fevers or chills chest pain shortness of breath or any chance that she is . 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 - Social history:: Smoking status: Reported history of juuling and/or vaping. Patient uses alcohol, occasionally. ROS: 09:38 Constitutional: Negative for fever, chills bs3 09:38 All other systems are negative. Exam: 09:38 Constitutional: This is a well developed, well nourished patient who is awake, alert, bs3 and in no acute distress. Head/Face: Normocephalic, atraumatic. Eyes: Pupils equal round and reactive to light, extra-ocular motions intact. Lids and lashes normal. ENT: mmm, no posterior phyarngeal erythema Neck: Trachea midline, no thyromegaly, no neck stiffness Chest/axilla: Normal chest wall appearance and motion. Nontender with no deformity. No lesions are appreciated. Cardiovascular: Regular rate and rhythm with a normal S1 and S2. symmetric pulses in upper extremities Respiratory: Lungs have equal breath sounds bilaterally, clear to auscultation, no respiratory distress Abdomen/GI: Soft, non-tender, no rebound or guarding Back: No spinal tenderness. No costovertebral tenderness. Full range of motion. Skin: Warm, dry with normal turgor. Normal color with no rashes, no lesions, and no evidence of cellulitis. MS/ Extremity: Pulses equal, no cyanosis. Neurovascular intact. Full, normal range of motion. Neuro: Awake and alert, GCS 15, oriented to person, place, time, and situation. Cranial nerves II-XII grossly intact. Motor strength 5/5 in all extremities. Sensory grossly intact. Vital Signs: 09:42 BP 145 / 113; Pulse 100; Resp 18; Temp 98.5(TE); Pulse Ox 96% on R/A; Weight 71.67 kg; 3 Height 5 ft. 3 in. ; 10:30 BP 129 / 86; Pulse 76; Resp 18; Pulse Ox 99% on R/A; eh3 11:30 BP 129 / 105; Pulse 68; Resp 18; Pulse Ox 99% on R/A; eh3 09:42 Body Mass Index 27.99 (71.67 kg, 160.02 cm) 3 MDM: 09:26 Patient medically screened. bs3 09:38 Data reviewed: vital signs, nurses notes. ED course: Possible viral illness possible bs3 coronavirus possible electrolyte abnormality doubt acute bacterial infection given the duration of symptoms for description of the symptoms will evaluate for although she is on contraceptive we will do serial exams and reassess I believe her voice changes secondary to her vomiting she has no signs of MANNEQUIN MOLD MAKER, RPA, ludwigs. 10:54 ED course: After the initial evaluation was called back into the room patient now bs3 stating that when she went to urinate here she had a small amount of burning with urination and she notes several weeks of unchanged vaginal discharge which she had not initially not been concerned about but is now concerned that she may have a sexually transmitted infection although she is only with 1 partner. I recommended swabs and treatment and to discontinue treatment if her swabs are negative however she wanted swabs and waiting and will return. 11:29 ED course: Discussed urinalysis with patient not clear-cut UTI will treat for possible bs3 STI her abdomen was reassessed soft nontender unlikely to be PID. 01/12 09:36 Order name: CBC with Diff; Complete Time: 10:45 bs3 01/12 09:36 Order name: Comprehensive Metabolic Panel; Complete Time: 10:45 bs3 01/12 09:36 Order name: Lipase; Complete Time: 10:45 bs3 01/12 09:36 Order name: Test, Urine; Complete Time: 11:00 bs3 01/12 09:36 Order name: SARS-COV-2 Antigen Rapid; Complete Time: 10:45 bs3 01/12 10:45 Order name: Urinalysis w/ reflexes; Complete Time: 11:21 bs3 01/12 10:45 Order name: GC (GONORR/CHLAMYDIA) Probe bs3 01/12 09:48 Order name: IV Saline Lock; Complete Time: 10:24 ld1 Administered Medications: 10:15 Drug: NS 0.9% IV 1000 ml Route: IV; Rate: 1000 ml; Site: right antecubital; 3 12:00 Follow up: IV Status: Completed infusion; IV Intake: 1000ml eh3 12:15 Follow up: Response: No adverse reaction 3 11:40 Drug: Rocephin IV 0.5 grams Route: IV; Rate: 1 bolus; Site: right antecubital; 3 11:50 Follow up: Response: No adverse reaction; IV Status: Completed infusion; IV Intake: [id number] Disposition Summary: 01/12/23 11:30 Discharge Ordered Location: Home bs3 Problem: new bs3 Symptoms: have improved bs3 Condition: Stable bs3 Diagnosis - Vomiting bs3 - Dysuria bs3 Followup: bs3 - With: Private Physician - When: 1 week - Reason: Re-evaluation by your physician Discharge Instructions: - Discharge Summary Sheet bs3 - Dysuria bs3 - Vomiting, Adult bs3 Forms: - Medication Reconciliation Form bs3 - Thank You Letter bs3 - Antibiotic Education bs3 - Prescription Opioid Use bs3 - [email or web address] bs3 Prescriptions: - Doxycycline Monohydrate 100 mg Oral Tablet - take 1 tablet by ORAL route every 12 hours for 7 days; 14 tablet; Refills: 0, bs3 Product Selection Permitted - ondansetron 8 mg Oral tablet,disintegrating - take 1 tablet by ORAL route every 8 hours; 12 tablet; Refills: 0, Product bs3 Selection Permitted Signatures: Dispatcher [employer] [place] Lacey RN RN ld1 Suzanne Botello RN RN 3 Clay Alvarez MD MD bs3
[2023-01-12 13:05] VITALS: TEMP 98.5
[2023-01-12 13:08] VITALS: O2SAT 99
[2023-01-12 13:10] VITALS: BP 129/105
== END 2023-01-12 12:19 | disposition home or self-care (01) ==
LOC: ER 09:21
DX: R11.10 Vomiting, unspecified (principal); R30.0 Dysuria; Z20.822 Contact with and (suspected) exposure to COVID-19
CPT/HCPCS: 85025; 81001; 36415; 81025; 83690; 80053; 87590; 87490; 87811; J7030

== ENCOUNTER → 2023-08-06 | Emergency (ER) | payer OTHER ==
[2023-08-06 12:11] LABS: SARS-CoV-2 Antigen Rapid Res Positive (Negative)
--- NOTE | 2023-08-06 13:02 | ER ---
Nurse's Notes [facility] Name: Jessie Joel Age: 28 yrs Sex: Female : 1995 Arrival Date: 08/06/2023 Time: 11:03 Bed DX5 Private MD: Diagnosis: SARS-associated coronavirus as the cause of diseases classified elsewhere Presentation: 08/06 11:25 Chief complaint: Cough, congestion, body aches, and chills upon waking today. hb Coronavirus screen: Client presents with at least one sign or symptom that may indicate coronavirus-19. Standard/surgical mask placed on the client. Provider contacted for isolation considerations. Ebola Screen: No symptoms or risks identified at this time. Initial Sepsis Screen: Does the patient meet any 2 criteria? No. Patient's initial sepsis screen is negative. Does the patient have a suspected source of infection? No. Patient's initial sepsis screen is negative. Risk Assessment: Do you want to hurt yourself or someone else? Patient reports no desire to harm self or others. Onset of symptoms was August 06, 2023. 11:25 Method Of Arrival: Ambulatory hb 11:25 Acuity: ADOLFO 4 hb Historical: - Allergies: 11:29 No Known Allergies; hb - PMHx: 11:29 Hypertensive disorder; hb - PSHx: 11:29 section; Tonsillectomy; hb - Immunization history:: Adult Immunizations up to date, Client reports receiving the 2nd dose of the Covid vaccine, Flu vaccine is not up to date. - Social history:: Smoking status: Patient denies any tobacco usage or history of. - Family history:: not pertinent. - Hospitalizations: : No recent hospitalization is reported. Vital Signs: 11:25 BP 146 / 100; Pulse 110; Resp 16; Temp 99.8(O); Pulse Ox 100% on R/A; Weight 69.85 kg; hb Height 5 ft. 3 in. ; Pain 5/10; 11:25 Body Mass Index 27.28 (69.85 kg, 160.02 cm) hb 11:25 Pain Scale: Adult hb ED Course: 11:11 Patient arrived in ED. mg5 11:14 Irwin Monzon MD is Attending Physician. rn 11:29 Triage completed. hb 11:30 Arm band placed on. hb Administered Medications: No medications were administered Outcome: 13:01 Discharge ordered by . carol 13:33 Discharged to home ambulatory, jl7 13:33 Condition: stable 13:33 Discharge instructions given to patient, Instructed on discharge instructions, follow up and referral plans. Demonstrated understanding of instructions, follow-up care, 13:33 Patient left the ED. jl7 Signatures: Irwni Monzon MD MD rn Baxter, Heather, RN RN hb Leal, Jahala, RN RN jl7 Lety William 5
--- NOTE | 2023-08-06 13:02 | EDPHYS ---
Physician Documentation [facility] Name: Jessie Joel Age: 28 yrs Sex: Female : 1995 Arrival Date: 08/06/2023 Time: 11:03 Bed DX5 Private MD: ED Physician Irwin Monzon HPI: 08/06 12:59 This 28 yrs old Black Female presents to ER via Ambulatory with complaints of Flu rn Symptoms. 12:59 The patient or guardian reports cough, flu symptoms. Onset: The symptoms/episode rn began/occurred this morning. Severity of symptoms: At their worst the symptoms were mild, in the emergency department the symptoms are unchanged. Modifying factors: The symptoms are alleviated by nothing, the symptoms are aggravated by nothing. Associated signs and symptoms: Pertinent positives: fever, rhinorrhea, sore throat, Pertinent negatives: chest pain. The patient has not experienced similar symptoms in the past. The patient has not recently seen a physician. Patient reports her and son sick as of this morning. Someone else in the house home positive for COVID yesterday. Denies shortness of breath.. Historical: - Allergies: 11:29 No Known Allergies; hb - PMHx: 11:29 Hypertensive disorder; hb - PSHx: 11:29 section; Tonsillectomy; hb - Immunization history:: Adult Immunizations up to date, Client reports receiving the 2nd dose of the Covid vaccine, Flu vaccine is not up to date. - Social history:: Smoking status: Patient denies any tobacco usage or history of. - Family history:: not pertinent. - Hospitalizations: : No recent hospitalization is reported. ROS: 12:59 Constitutional: Positive for fever and chills ENT: Positive for congestion rn medication: Negative for chest pain, palpitations, and edema, Respiratory: Positive for cough, negative for shortness of breath MS/Extremity: Negative for injury and deformity, Skin: Negative for injury, rash, and discoloration, Neuro: Negative for headache, weakness, numbness, tingling, and seizure, Exam: 12:59 Constitutional: This is a well developed, well nourished patient who is awake, alert, rn and in no acute distress. Head/Face: Normocephalic, atraumatic. ENT: Mild pharyngeal erythema without exudate or stridor. Neck: Trachea midline, no thyromegaly or masses palpated, and no cervical lymphadenopathy. Supple, full range of motion without nuchal rigidity, or vertebral point tenderness. No Meningismus. Cardiovascular: Regular rate and rhythm. No pulse deficits. Respiratory: No increased work of breathing, no retractions or nasal flaring. Neuro: Awake and alert, GCS 15 Vital Signs: 11:25 BP 146 / 100; Pulse 110; Resp 16; Temp 99.8(O); Pulse Ox 100% on R/A; Weight 69.85 kg; hb Height 5 ft. 3 in. ; Pain 5/10; 11:25 Body Mass Index 27.28 (69.85 kg, 160.02 cm) hb 11:25 Pain Scale: Adult hb MDM: 11:14 Patient medically screened. rn 12:59 Differential Diagnosis: Bronchitis Influenza Upper Respiratory Infection Viral rn Syndrome. Data reviewed: vital signs, nurses notes, lab test result(s), and as a result, I will discharge patient. Counseling: I had a detailed discussion with the patient and/or guardian regarding the historical points, exam findings, and any diagnostic results supporting the discharge/admit diagnosis, lab results, the need for outpatient follow up, to return to the emergency department if symptoms worsen or persist or if there are any questions or concerns that arise at home. Special discussion: I discussed with the patient/guardian in detail that at this point there is no indication for admission to the hospital. It is understood, however, that if the symptoms persist or worsen the patient needs to return immediately for re-evaluation. 08/06 11:15 Order name: Strep rn 08/06 11:15 Order name: Flu; Complete Time: 12:58 rn 08/06 11:15 Order name: SARS RAPID; Complete Time: 12:58 rn 08/06 12:49 Order name: Throat Culture EDMS Administered Medications: No medications were administered Disposition Summary: 08/06/23 13:01 Discharge Ordered Notes: Location: Home rn Problem: new rn Symptoms: have improved rn Condition: Stable rn Diagnosis - SARS-associated coronavirus as the cause of diseases classified elsewhere rn Followup: rn - With: Private Physician - When: As needed - Reason: Recheck today's complaints, Re-evaluation by your physician Discharge Instructions: - Discharge Summary Sheet rn - COVID-19 rn - 10 Things You Can Do to Manage Your COVID-19 Symptoms at Home - [facility] rn - Viral Illness, Adult rn Forms: - Medication Reconciliation Form rn - Thank You Letter rn - Antibiotic campus interviews intern - Prescription Opioid Use rn - Patient Portal Instructions rn - Leadership Thank You Letter rn Signatures: Dispatcher [employer] Irwin Pedraza MD MD rn Baxter, Heather, RN RN
[2023-08-06 15:51] VITALS: BP 146/100; TEMP 99.8; O2SAT 100
== END ==
LOC: ER 11:03
DX: U07.1 COVID-19 (principal); B97.21 SARS-associated coronavirus as the cause of diseases classified elsewhere; I10 Essential (primary) hypertension
CPT/HCPCS: 36415; 87070; 87081; 87804; 87811; 99282

== ENCOUNTER 2024-10-26 12:02 | Emergency (ER) | payer OTHER ==
[2024-10-26 13:21] LABS: Specific Gravity > 1.030 (1.005-1.030); Sqamous Epithelial <5 /HPF (None Seen); Urine Bacteria None Seen /HPF (<20); Urine Bilirubin NEGATIVE (Negative); Urine Blood Negative (Negative); Urine Clarity Clear (Clear); Urine Color Yellow (Yellow); Urine Culture Reflex Order NOT NEEDED; Urine Glucose NEGATIVE (Negative); Urine Ketones NEGATIVE (Negative); Urine Micro Reflex YN NO BILL MICROSCOPIC; Urine Mucus 1+ /HPF (None Seen); Urine Nitrite NEGATIVE (Negative); Urine Protein TRACE (Negative); Urine RBC <5 /HPF (None Seen); Urine Urobilinogen Normal (Normal); Urine WBC <5 /HPF (<5); Urine pH 6.5 (5.0-7.0)
--- NOTE | 2024-10-26 13:24 | RAD REPORT ---
EXAMINATION: TWO VIEW CHEST XR CLINICAL INDICATION: Female, 29 years old. [facility] MAIN CHEST PAIN Bed: TECHNIQUE: 2 view radiographs of the chest were performed. COMPARISON: No prior exam. FINDINGS: The lungs are well inflated and clear. No pneumothorax or sizable effusion. The heart is normal in si ze. Mediastinal contours are unremarkable. IMPRESSION: No acute or significant abnormalities.
--- NOTE | 2024-10-26 13:54 | ER ---
Nurse's Notes [facility] Name: Jessie Joel Age: 29 yrs Sex: Female : 1995 Arrival Date: 10/26/2024 Time: 12:02 Bed DX4 Private MD: Diagnosis: Chest pain, unspecified;Low back pain Presentation: 10/26 12:26 Chief complaint: Patient states: chest pain a month ago, has to take deeper breaths iw than usual and has sharp pains through her chest also having low back pain into groin. Coronavirus screen: At this time, the client does not indicate any symptoms associated with coronavirus-19. Ebola Screen: No symptoms or risks identified at this time. Initial Sepsis Screen: Does the patient meet any 2 criteria? No. Patient's initial sepsis screen is negative. Does the patient have a suspected source of infection? No. Patient's initial sepsis screen is negative. Risk Assessment: Do you want to hurt yourself or someone else? Patient reports no desire to harm self or others. 12:26 Method Of Arrival: Ambulatory iw 12:26 Acuity: ADOLFO 3 iw 12:27 Onset of symptoms was September 2024. iw Triage Assessment: 12:29 General: Appears in no apparent distress. Behavior is calm, cooperative. 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 - Infectious Disease History:: Denies. - Social history:: Smoking status: Reported history of juuling and/or vaping. quit vaping . Screenin:05 [facility] ED Fall Risk Assessment (Adult) History of falling in the last 3 months, ll1 including since admission No falls in past 3 months (0 pts) Confusion or Disorientation No (0 pts) Intoxicated or Sedated No (0 pts) Impaired Gait No (0 pts) Mobility Assist Device Used No (0 pt) Altered Elimination No (0 pt) Score/Fall Risk Level 0 - 2 = Low Risk Maintained a safe environment, Hourly rounding (assess needs \T\ fall precautionary measures) done. Abuse screen: Denies threats or abuse. Nutritional screening: No deficits noted. Tuberculosis screening: No symptoms or risk factors identified. Assessment: 13:45 Reassessment: No changes from previously documented assessment. Patient and/or family ll1 updated on plan of care and expected duration. Pain level reassessed. 14:05 Reassessment: No changes from previously documented assessment. Patient and/or family ll1 updated on plan of care and expected duration. Pain level reassessed. Patient is alert, oriented x 3, equal unlabored respirations, skin warm/dry/pink. 14:05 Cardiovascular: Reports chest pain. ll1 15:12 Pain: Pain does not radiate. Pain began 1 day ago. ll1 Vital Signs: 12:26 BP 139 / 105; Pulse 95; Resp 19; Temp 97.4; Pulse Ox 100% on R/A; Weight 77.11 kg; iw Height 5 ft. 3 in. ; 14:03 BP 130 / 78; Pulse 69; Resp 17; Pulse Ox 100% ; Pain 5/10; ll1 12:26 Body Mass Index 30.11 (77.11 kg, 160.02 cm) iw 14:03 Pain Scale: Adult ll1 ED Course: 12:04 Patient arrived in ED. mr 12:06 Sushant Angelo DO is Attending Physician. ms3 12:27 Triage completed. iw 12:29 Arm band placed on. iw 12:53 Chest Pa And Lat (2 Views) XRAY In Process Unspecified. EDMS 13:44 Patient placed in an exam room, on a stretcher. ll1 13:53 Garcia Copeland DO is Referral Physician. ms3 14:05 Patient has correct armband on for positive identification. Provided Education on: ll1 return to ED for worsening symptoms. Cardiac monitoring not applicable on this patient. 14:05 No provider procedures requiring assistance completed. Patient did not have IV access ll1 during this emergency room visit. Patient maintains SpO2 saturation greater than 95% on room air. Administered Medications: No medications were administered Medication: 15:11 VIS not applicable for this client. ll1 Outcome: 13:54 Discharge ordered by . ms3 14:05 Patient left the ED. ll1 14:05 Discharged to home ambulatory, ll1 14:05 Condition: stable 14:05 Discharge instructions given to patient, Instructed on discharge instructions, follow up and referral plans. Demonstrated understanding of instructions, follow-up care, Signatures: Dispatcher [employer] Alanna Soliman, Rc Reg mr Chloe Quinn, RN KIM iw Elva Foote RN RN ll1 Sushant Angelo, DO GOODWIN ms3 Corrections: (The following items were deleted from the chart) 12:27 12:26 Chief complaint: Patient states: chest pain a month ago, has to take deeper iw breaths than usual and has sharp pains through her chest iw 12:30 12:26 BP 139 / 105; Pulse 95bpm; Resp 19bpm; Pulse Ox 100% RA; Temp 97.4F; iw iw
--- NOTE | 2024-10-26 13:54 | EDPHYS ---
Physician Documentation [facility] Name: Jessie Joel Age: 29 yrs Sex: Female : 1995 Arrival Date: 10/26/2024 Time: 12:02 Bed DX4 Private MD: ED Physician Sushant Angelo HPI: 10/26 12:44 This 29 yrs old Black Female presents to ER via Ambulatory with complaints of Chest ms3 Pain, Back Pain. 12:44 29-year-old female with past medical history of hypertension presents to the emergency ms3 department for sternal pain that radiates to the back, bilateral flank pain, shortness of breath that is been ongoing for 1 month. Patient states she is seeing her primary care physician for the symptoms and has an appointment next week. Patient states her discomfort is an 02/25. 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 - Infectious Disease History:: Denies. - Social history:: Smoking status: Reported history of juuling and/or vaping. quit vaping . ROS: 12:44 Constitutional: Negative for fever, and chills. ms3 12:44 Respiratory: Negative for shortness of breath, cough, wheezing, and pleuritic chest pain, Abdomen/GI: Negative for abdominal pain, nausea, vomiting, diarrhea, and constipation, MS/Extremity: Negative for injury and deformity, Skin: Negative for injury, rash, and discoloration, 12:44 Cardiovascular: Positive for chest pain, Exam: 12:44 Constitutional: This is a well developed, well nourished patient who is awake, alert, ms3 and in no acute distress. Cardiovascular: Regular rate and rhythm with a normal S1 and S2. No gallops, murmurs, or rubs. Normal PMI, no JVD. No pulse deficits. Respiratory: Lungs have equal breath sounds bilaterally, clear to auscultation and percussion. No rales, rhonchi or wheezes noted. No increased work of breathing, no retractions or nasal flaring. Abdomen/GI: Soft, non-tender, with normal bowel sounds. No distension or tympany. No guarding or rebound. No evidence of tenderness throughout. Skin: Warm, dry with normal turgor. Normal color with no rashes, no lesions, and no evidence of cellulitis. MS/ Extremity: Pulses equal, no cyanosis. Neurovascular intact. Full, normal range of motion. 12:44 Chest/axilla: Inspection: normal, Palpation: tenderness, that is moderate, of the anterior aspect of left upper chest, 12:46 ECG was reviewed by the Attending Physician. ms3 Vital Signs: 12:26 BP 139 / 105; Pulse 95; Resp 19; Temp 97.4; Pulse Ox 100% on R/A; Weight 77.11 kg; iw Height 5 ft. 3 in. ; 14:03 BP 130 / 78; Pulse 69; Resp 17; Pulse Ox 100% ; Pain 5/10; ll1 12:26 Body Mass Index 30.11 (77.11 kg, 160.02 cm) iw 14:03 Pain Scale: Adult ll1 MDM: 12:20 Medical Screening Exam initiated ms3 21:33 Differential diagnosis: abnormal EKG, pericarditis, pleurisy, pneumonia. Data reviewed: ms3 vital signs, nurses notes, lab test result(s), EKG, radiologic studies, and as a result, I will discharge patient. Independent interpretation of the following test(s) in the Emergency Department EKG: See my EKG interpretation above. Counseling: I had a detailed discussion with the patient and/or guardian regarding the historical points, exam findings, and any diagnostic results supporting the discharge/admit diagnosis, lab results, radiology results, the need for outpatient follow up, to return to the emergency department if symptoms worsen or persist or if there are any questions or concerns that arise at home. Special discussion: I discussed with the patient/guardian in detail that at this point there is no indication for admission to the hospital. It is understood, however, that if the symptoms persist or worsen the patient needs to return immediately for re-evaluation. ED course: Discussed lab, chest x-ray, EKG findings with patient. Patient to follow-up with primary care physician 2 to 3 days. Patient understands agrees with plan. All questions were answered. Return precautions discussed include worsening symptoms, or any other concerns.. 10/26 12:20 Order name: Urinalysis W/Microscopic; Complete Time: 13:42 ms3 10/26 12:16 Order name: Chest Pa And Lat (2 Views) XRAY; Complete Time: 13:42 ms3 10/26 12:16 Order name: EKG; Complete Time: 12:17 ms3 10/26 12:16 Order name: EKG - Nurse/Tech; Complete Time: 13:34 ms3 EC:46 Rate is 87 beats/min. Rhythm is regular. QRS [place] is Normal. CT interval is normal. QRS ms3 interval is normal. Clinical impression: Normal ECG. Interpreted by me. Reviewed by me. Administered Medications: No medications were administered Disposition Summary: 10/26/24 13:54 Discharge Ordered Notes: Location: Home ms3 Condition: Stable ms3 Diagnosis - Chest pain, unspecified ms3 - Low back pain ms3 Followup: ms3 - With: Garcia Copeland DO - When: 2 - 3 days - Reason: Recheck today's complaints Discharge Instructions: - Discharge Summary Sheet ms3 - Acute Back Pain, Adult ms3 - Nonspecific Chest Pain, Adult ms3 Forms: - Medication Reconciliation Form ms3 - Antibiotic Education ms3 - Prescription Opioid Use ms3 - Patient Portal Instructions ms3 - Leadership Thank You Letter ms3 Signatures: Dispatcher [employer] Chloe Berry, RN RN Sushant Gallagher DO DO ms3 Corrections: (The following items were deleted from the chart) 12:21 12:21 Urinalysis W/Microscopic+[email or web address].LAB.BRZ ordered. RAJWINDER PURDY
[2024-10-26 14:19] VITALS: BP 139/105; TEMP 97.4; O2SAT 100
--- NOTE | 2024-10-27 14:17 | EKG ---
Test Date: 2024-10-26 Test Time: 12:38:06 Natural Sciences Department Chair: LES MEASUREMENT RESULTS: Intervals: Rate: 87 MI: 136 QRSD: 72 QT: 364 QTc: 438 [place]: P: 40 MI: 136 QRS: 66 T: 27 INTERPRETIVE STATEMENTS: Normal sinus rhythm Normal ECG Compared to ECG 09/12/2024 14:18:49 No significant changes Electronically Signed On 10-27-24 14:13:36 CDT by Dharmesh Vargas
== END 2024-10-26 14:05 | disposition home or self-care (01) ==
LOC: ER 12:02
DX: R07.9 Chest pain, unspecified (principal); M54.50 Low back pain, unspecified; I10 Essential (primary) hypertension
CPT/HCPCS: 71046; 81001; 93005; 99282